=== PATIENT | female | born 1940 | race Caucasian/White ===

== ENCOUNTER 2022-06-20 09:42 | Day surgery (SDC) | payer MEDICARE, SELFPAY ==
[2022-06-20 09:54] VITALS: BMI 19.4
[2022-06-20] MEDS: KETOROLAC OPHTH 0.5% 1 DROP EYE-RIGHT ×2 (10:10→10:15)
[2022-06-20] MEDS: TETRACAINE 0.5% OPHTH 1 DROP EYE-RIGHT ×2 (10:10→10:15)
[2022-06-20 10:17] VITALS: BP 173/83; PULSE 64; RESP 20; TEMP 36.2; O2SAT 99
--- NOTE | 2022-06-20 10:30 | SUR.PREOP ---
The eye drops brought by the patient (Ketorolac and Prednisolone) are examined and I have determined they are labeled by the patient's pharmacy for this patient as prescribed by the surgeon. The bottles are intact, recently obtained and appear to be correct.
[2022-06-20] MEDS: BALANCED SALT IRRIG SOLN 15 ML EYE-RIGHT (10:43)
[2022-06-20] MEDS: TETRACAINE 0.5% OPHTH 2 DROP EYE-RIGHT (11:28)
--- NOTE | 2022-06-20 12:03 | W.ANESCHARGE ---
Anesthesia Charges Start Date/Time Anesthesia Start Date: 06/20/22 Anesthesia Start Time: 11:24 Stop Date/Time Anesthesia Stop Date: 06/20/22 Anesthesia Stop Time: 12:03 Summary Emergency: No Extremes of Age: Over 70-CPT 87327
--- NOTE | 2022-06-20 12:10 | P.PCN_ITS ---
Procedure Note Will [facility] bill your pro fee for this procedure?: Yes Procedure Description: SURGEON: Keri Uriostegui MD PREOPERATIVE DIAGNOSIS: Nuclear sclerotic cataract, right eye. POSTOPERATIVE DIAGNOSIS: Nuclear sclerotic cataract, right eye. NAME OF OPERATION: Phacoemulsification of cataract with posterior chamber intraocular lens implantation in the right eye. ANESTHESIA: Topical. ESTIMATED BLOOD LOSS: Less than 2 cc. COMPLICATIONS: None. PATHOLOGY SPECIMEN: None. INDICATIONS: See consult note for details. The risks, benefits and alternatives of the procedure were explained to the patient, who elected to proceed and signed informed consent to do so. PROCEDURE: The patient was brought to the pre-holding area where the right eye was identified as the operative eye. I placed my initials above this eye. The patient received eye drops consisting of 0.5% tetracaine, 1% tropicamide, 10% phenylephrine, and 0.5% ketorolac. The patient was given 12.5 grams IV mannitol and a honan balloon was placed for 8 minutes preoperatively. The patient was then brought to the operating room where the right eye was again identified as the operative eye. The eye was prepped with Betadine and draped in the usual sterile ophthalmic fashion. A #15 super-sharp blade was used to create a paracentesis site. 1% non-preserved intracameral lidocaine was injected into the anterior chamber. Endocoat was injected into the anterior chamber. A 2.4 mm keratome was used to create a thre e-plane self-sealing incision 1 mm anterior to the temporal limbus. A cystotome was used to create an anterior capsular leaflet. The Utrata forceps were used to extend this to form a continuous curvilinear capsulorrhexis. Hydrodissection was performed. The cataract was removed with phacoemulsification using the rxyrlx-dyd-lcobklj technique. The irrigation and aspiration tip was used to remove the remaining cortex. Healon was injected into the capsular bag. An EVELYN ZCB00 intraocular lens of 23.0 diopters was injected into the capsular bag. The irrigation and aspiration tip was used to remove the remaining viscoelastic. Balanced salt solution on a cannula was used to hydrate the wound, and the wound was found to be watertight. The pupil was noted to be round. DISPOSITION: The patient was taken to the recovery room and discharged to home in stable condition. The patient was instructed to call me or go to the emergency department with any sudden change, including dramatic loss of vision, severe pain in the eye or eyebrow region, nausea, or vomiting. The patient will follow up in the clinic tomorrow morning. Surgeon: Keri Uriostegui MD
[2022-06-20 12:14] VITALS: BP 176/88; PULSE 70; RESP 16; TEMP 37.2; O2SAT 98
--- NOTE | 2022-06-20 12:27 | W.ANESCHARGE ---
Anesthesia Charges Start Date/Time Anesthesia Start Date: 06/20/22 Anesthesia Start Time: 11:24 Stop Date/Time Anesthesia Stop Date: 06/20/22 Anesthesia Stop Time: 12:03 Summary Emergency: No Extremes of Age: Over 70-CPT 25844
== END 2022-06-20 12:35 | disposition home or self-care (01) ==
PROVIDERS: PCP Physician Assistant Medical; Visit Provider Ophthalmology
PROC: (CPT 66984; principal; 2022-06-20 09:45)
DX: H25.11 Age-related nuclear cataract, right eye (principal)
CPT/HCPCS: 66984; 00142; 99100; A9270; J2150; J2250; J3010; V2632

== ENCOUNTER 2022-07-04 08:04 | Day surgery (SDC) | payer MEDICARE, SELFPAY ==
[2022-07-04] MEDS: TETRACAINE 0.5% OPHTH 1 DROP EYE-LEFT ×2 (08:22→08:30)
[2022-07-04] MEDS: KETOROLAC OPHTH 0.5% 1 DROP EYE-LEFT ×2 (08:26→08:36)
[2022-07-04 08:27] VITALS: BMI 19.7
[2022-07-04 08:31] VITALS: BP 139/70; PULSE 61; RESP 16; TEMP 36.8; O2SAT 98
[2022-07-04] MEDS: TETRACAINE 0.5% OPHTH 2 DROP EYE-LEFT (09:40)
[2022-07-04] MEDS: BALANCED SALT IRRIG SOLN 15 ML EYE-LEFT (09:43)
--- NOTE | 2022-07-04 10:05 | W.ANESCHARGE ---
Anesthesia Charges Start Date/Time Anesthesia Start Date: 07/04/22 Anesthesia Start Time: 09:32 Stop Date/Time Anesthesia Stop Date: 07/04/22 Anesthesia Stop Time: 10:07 Summary Emergency: No Extremes of Age: Over 70-CPT 69515
[2022-07-04 10:07] VITALS: BP 157/83; PULSE 56; RESP 14; TEMP 36.5; O2SAT 97
--- NOTE | 2022-07-04 10:16 | W.ANESCHARGE ---
Anesthesia Charges Start Date/Time Anesthesia Start Date: 07/04/22 Anesthesia Start Time: 09:32 Stop Date/Time Anesthesia Stop Date: 07/04/22 Anesthesia Stop Time: 10:07 Summary Emergency: No Extremes of Age: Over 70-CPT 94539
--- NOTE | 2022-07-04 10:39 | SUR.PHASEII ---
PT DISCHARGED IN STABLE CONDITION
--- NOTE | 2022-07-04 13:00 | PM.PROC ---
Procedure Note Date Seen: 07/04/22 Will [facility] bill your pro fee for this procedure?: Yes Procedure Description: SURGEON: Keri Uriostegui MD PREOPERATIVE DIAGNOSIS: Nuclear sclerotic cataract, left eye. POSTOPERATIVE DIAGNOSIS: Nuclear sclerotic cataract, left eye. NAME OF OPERATION: Phacoemulsification of cataract with posterior chamber intraocular lens implantation in the left eye. ANESTHESIA: Topical. ESTIMATED BLOOD LOSS: Less than 2 cc. COMPLICATIONS: None. PATHOLOGY SPECIMEN: None. INDICATIONS: See consult note for details. The risks, benefits and alternatives of the procedure were explained to the patient, who elected to proceed and signed informed consent to do so. PROCEDURE: The patient was brought to the pre-holding area where the left eye was identified as the operative eye. I placed my initials above this eye. The patient received eye drops consisting of 0.5% tetracaine, 1% tropicamide, 10% phenylephrine, and 0.5% ketorolac. The patient was given 12.5 grams IV mannitol and a Honan balloon was placed for 8 minutes pre-operatively. The patient was then brought to the operating room where the left eye was again identified as the operative eye. The eye was prepped with Betadine and draped in the usual sterile ophthalmic fashion. A #15 super-sharp blade was used to create a paracentesis site. 1% non-preserved intracameral lidocaine was injected into the anterior chamber. Endocoat was injected into the anterior chamber. A 2.4 mm keratome was used to create a three-plane self-sealing incision 1 mm anterior to the temporal limbus. A cystotome was used to create an anterior capsular leaflet. The Utrata forceps were used to extend this to form a continuous curvilinear capsulorrhexis. Hydrodissection was performed. The cataract was removed with phacoemulsification using the iikydq-fci-mjgsdwd technique. The irrigation and aspiration tip was used to remove the remaining cortex. Healon was injected into the capsular bag. An EVELYN ZCB00 intraocular lens of 23.0 diopters was injected into the capsular bag. The irrigation and aspiration tip was used to remove the remaining viscoelastic. Balanced salt solution on a cannula was used to hydrate the wound, and the wound was found to be watertight. The pupil was noted to be round. DISPOSITION: The patient was taken to the recovery room and discharged to home in stable condition. The patient was instructed to call me or go to the emergency department with any sudden change, including dramatic loss of vision, severe pain in the eye or eyebrow region, nausea, or vomiting. The patient will follow up in the clinic tomorrow morning. Surgeon: Keri Uriostegui MD
== END 2022-07-04 10:42 | disposition home or self-care (01) ==
PROVIDERS: PCP Physician Assistant Medical; Visit Provider Ophthalmology
PROC: (CPT 66984; principal; 2022-07-04 08:15)
DX: H25.12 Age-related nuclear cataract, left eye (principal)
CPT/HCPCS: 66984; 00142; 99100; A9270; J2150; J2250; J3010; V2632

== ENCOUNTER 2022-10-01 13:50 | Outpatient (RCR) | payer MEDICARE, SELFPAY | END 2023-06-20 23:59 | disposition home or self-care (01) | PROVIDERS: PCP Physician Assistant Medical; Visit Provider Psychiatry & Neurology Neurology | DX: G20 Parkinson's disease (principal); G31.84 Mild cognitive impairment of uncertain or unknown etiology; Z51.89 Encounter for other specified aftercare | CPT/HCPCS: 97165; 97535 ==

== ENCOUNTER 2023-05-10 15:20 | Outpatient (CLI) | payer MEDICARE, SELFPAY ==
[2023-05-10 21:45] LABS: Chloride* 102 mmol/L (96-114)
[2023-05-10 21:46] LABS: Albumin* 4.1 g/dL (3.3-5.0); Sodium* 137 mmol/L (135-149)
[2023-05-10 21:47] LABS: Potassium* 3.9 mmol/L (3.6-5.1)
[2023-05-10 21:49] LABS: Alanine Aminotransferase* 16 U/L (4-35); Alkaline Phosphatase* 56 U/L (40-150); Aspartate Amino Transferase* 38 U/L (12-35); Bilirubin Total* 0.9 mg/dL (0.1-1.5); Blood Urea Nitrogen* 21 mg/dL (7-30); Carbon Dioxide* 28 mmol/L (20-32); Creatinine* 0.6 mg/dL (0.5-1.5); Estimated Glomerular Filt Rate 90 ml/min; Glucose* 108 mg/dL (60-115); Total Protein* 6.5 g/dL (6.0-8.3)
[2023-05-10 21:50] LABS: Calcium* 9.3 mg/dL (8.4-10.6)
== END 2023-05-10 15:21 | disposition home or self-care (01) ==
PROVIDERS: PCP Physician Assistant Medical; Visit Provider Physician Assistant Medical
DX: F41.8 Other specified anxiety disorders (principal); I10 Essential (primary) hypertension
CPT/HCPCS: 80053; 84443

== ENCOUNTER 2023-06-06 11:58 | Outpatient (CLI) | payer MEDICARE, SELFPAY ==
--- OUTSIDE RECORDS SUMMARY | 2023-06-06 12:07 | XMS_ITS | Continuity of Care Document ---
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 [address] [place] [address], [id number], [place]. tel:[phone] Referring Provider: Mee Mcgarry, [address] [facility] [place], [address] . tel:[phone] [facility], [address] [place] [address], [id number], [place] tel:[phone] [place] [address] No Information 3 [facility]. [address] [place] [address], [id number], [place]. tel:[phone] Referring Provider: eMe Mcgarry [address] [facility] [place], [address] . tel:[phone] Family History Family Member Type Diagnosis Age At Onset No Information Payers Payer name Insurance type Covered libertarian ID Kyler coyle(s) [facility] Medicare Replacement 16 [id number] Social History Type Description Quantity Date Captured Comments Sex Female Smoking Status No Information Chief Complaint And Reason For Visit No Information Reason For Referral Reason For Referral No Information Plan Of Treatment Date Type Action Status No Information History Of Present Illness Encounter Date Complaint History Of Prese nt Illness No Information Functional Status Date Functional Assessmen t No Information Instructions Date Instruction Additional Infor mation No Information Assessments Type Assessment Date No Information Patient Care Teams Name Effective Dates (start - stop) Status Members No Information
--- OUTSIDE RECORDS SUMMARY | 2023-06-06 12:08 | XMS_ITS | Continuity of Care Document ---
Author Name Unknown Organization [facility] Address [address] [place] [address] Phone Care Team Providers Care Beater Room Helper Name Role Phone Mercedez POLLACK, PhD, Yousif Unavailable Unavai lable Allergies, Adverse Reactions, Alerts Substance Reaction Status Criticality morphine Active No Information Medications Medication Instructions Dosage Effective Dates (start - stop) Status Comments BUPROPION HCL (unknown strength) Not Available - Active OXYBUTYNIN CHLORIDE (unknown strength) Not Available - Active CARBIDOPA-LEVODOPA (unknown strength) Not Available - Active DONEPEZIL HCL (unknown strength) Not Available - Active ESCITALOPRAM OXALATE (unknown strength) Not Available - Active IBUPROFEN (unknown strength) Not Available - Active LOSARTAN POTASSIUM (unknown strength) Not Available - Active TRAMADOL HCL (unknown strength) Not Available - Active Procedures Procedure Date Office/Outpatient Visit,New, [facility] Advance Directives Directive Yes / No Effective Date File Name No Information Encounters Encounter Description Practice Location Reason(s) For Visit Diagnoses Date Provider Providers Copied on Encounter [facility], [address], [place], [id number], [place] tel:[phone] No Information Mercedez Dodd. [facility], [address], [place], [address], [place]. tel:[phone] Office/Outpat ient Visit, [facility], [address], [place], [id number], [place] tel:[phone] [facility] Spinal stenosis, lumbar region with neurogenic claudication 0 2 Mercedez Dodd. [facility], [address], [place], [address], [place]. [phone] Referring Provider: Azam Laguerre [facility] [address] [place], [address]. tel:[phone] Family History Family Member Type Diagnosis Age At Onset No Information Payers Payer name Insurance type Covered constitution party ID Kyler coyle(s) [facility] [id number] Medicare [facility] BL [id number] 1 Social History Type Description Quantity Date Captured [...]
--- OUTSIDE RECORDS SUMMARY | 2023-06-06 12:08 | XMS_ITS | Continuity of Care Document ---
Author Name Unknown Organization [facility] Address [address] [place] [address] Phone Care Team Providers Care Digital Project Coordinator Name Role Phone Mee Mcgarry MD Unavailable Unavailable Allergies, Adverse Reactions, Alerts Substance Reaction Status Criticality morphine vomiting Active No Information Medications Medication Instructions Dosage Effective Dates (start - stop) Status Comments diclofenac 1 % topical gel apply (2G) by topical route 3 times every day to the affected area(s) as needed for OA 2 G - Active please dispense a roll on if available gabapentin 100 mg capsule Take 1 cap [...] route every day 15 MG - Active Procedures Procedure Date Facet Jt In Or [...] Diagnoses Date Provider Providers Copied on Encounter [facility], [address] [place], [place], [id number] , [place] tel:[phone] [facility] Other spondylosis, lumbar region 3 Malgorzata Caban. [address] [place], [place], [id number] , [place]. tel:[phone] Referring Provider: Halima Vigli [facility] [address] [facility], [address], [place], [address]. tel:[phone] OFFICE/OUTPA TIENT VISIT, EST [facility], [address] [place] [address], [id number] , [place] tel:[phone] [facility] bilateral shoulder pain (chief complaint) Chronic pain syndromePain in left shoulderOther intervertebral disc degeneration, lumbar regionIschial bursitisOther steam gigger (current) drug therapyOther spondylosis, lumbar region [address], [place], [place], [id number] , [place]. tel:[phone] Referring Provider: Halima [facility]il [facility] [address], [address], [place], [address]. tel:[phone] [facility], [address] [place] [address], [id number] , [place] tel:[phone] [facility] No Information [address], [place], [place], [id number] , [place]. tel:[phone] [facility], [address] [place] [address], [id number] , [place] tel:[phone] [facility] in left shoulder Apr-2 3 Malgorzata Caban. [address] [facility] [place], [id number] , [place]. tel:[phone] Referring Provider: Halima Vigil [address], [address], [place], [address]. tel:[phone] OFFICE/OUTPA TIENT VISIT, [facility], [address] [place] [address] [place], [id number] , [place] tel:[phone] [facility] bilateral shoulder pain (chief complaint) ParkinsonismChro yasmine pain syndromeOther intervertebral disc degeneration, lumbar regionIschial bursitisPain in left shoulderOther nursing home (current) drug therapy Apr- [address], [place], [id number] , [place]. tel:[phone] Referring Provider: Halima Vigil [address], [address], [place], [address]. tel:[phone] OFFICE/OUTPA TIENT VISIT, [facility], [address] [place] [address], [id number] , [place] tel:[phone] [facility] Low back pain (chief complaint) Chronic pain syndromeParkinso nismOther intervertebral disc degeneration, lumbar regionIschial bursitis Apr-[address], [place], [id number] , [place]. tel:[phone] Referring Provider: Halima Vigil [address], [address], [place], [address]. tel:[phone] OFFICE/OUTPA TIENT VISIT, [facility], [address] [place] [address] [place], [id number] , [place] tel:[phone] [facility] low back pain (chief complaint) Chronic pain syndromeEncounte r for screening for other disorderParkinso nismOther intervertebral disc degeneration, lumbar regionIschial bursitis Jan-[address], [place], [place], [id number] , [place]. tel:[phone] Referring Provider: Halima Vigil [facility] [address] [facility], [address], [place], [address]. tel:[phone] Family History Family Member Type Diagnosis Age At Onset No Information Payers Payer name Insurance type Covered green party ID Authorraymona jonna(s) Blue [employer] Medicare Replacement 16 [id number] Social History Type Description Quantity Date Captured [...] pain (L>R). She is accompanied by her [id number]-ga-kmu today who also contributes to her discussion [...] first in-person follow-up in two years with [facility] regarding BL shoulder (L > R) and [...] She had a follow-up with orthopedics at [facility] last week and she reports they could [...] (aspercreme), rest and stretching. Low back pain Duration: chroni c. The [...] No other concerns today low back pain (comments) Alysa wilkinson s [...] stenosis. She recalls a hip X-ray in [place] about 1.5 years ago, results normal. Reports some relief for a few weeks from SI joint injection at [facility] in 12/2020, but the pain quickly [...]
== END 2023-06-06 11:59 | disposition home or self-care (01) ==
PROVIDERS: PCP Physician Assistant Medical; Visit Provider Family Medicine
DX: Z01.818 Encounter for other preprocedural examination (principal); G20 Parkinson's disease; I10 Essential (primary) hypertension; N32.81 Overactive bladder; R53.83 Other fatigue
CPT/HCPCS: 80053; 82043; 82570; 82607; 84443; 87086; 87186

== ENCOUNTER 2023-08-28 10:53 | Outpatient (CLI) | payer MEDICARE, SELFPAY ==
[2023-08-28] MEDS: TETRACAINE 0.5% OPHTH 1 DROP EYE-BOTH ×3 (11:12→11:40)
[2023-08-28] MEDS: BRIMONIDINE TARTRATE 0.2% OPHTH 1 DROP EYE-BOTH ×2 (11:13→11:52)
[2023-08-28 11:17] VITALS: BP 161/90; PULSE 75; RESP 16; O2SAT 99
--- NOTE | 2023-08-28 12:03 | P.OPTPRC_ITS ---
Procedure Note Date of procedure: 08/28/23 Will [facility] bill your pro fee for this procedure?: Yes Procedure Description: SURGEON: Keri Uriostegui MD PREOPERATIVE DIAGNOSIS: Posterior capsular opacity, right and left eye POSTOPERATIVE DIAGNOSIS: Posterior capsular opacity, right and left eye PROCEDURE: YAG laser capsulotomy, both eyes ANESTHESIA: Topical. ESTIMATED BLOOD LOSS: None PATHOLOGY SPECIMEN: None COMPLICATIONS: None INDICATIONS: See consult note for details. The risks, benefits and alternatives of the procedure were explained to the patient, who elected to proceed and signed informed consent to do so. PROCEDURE: The patient was brought to the pre-holding area where the right and left eyes were identified as the operative eyes. I placed my initials above the eyes. The following was given in both eyes: The patient received 2 sets of 1 drop of 0.5% tetracaine and 1 drop of 1% tropicamide. They also received 1 drop of 0.2% brimonidine. They received 1 drop of 0.5% tetracaine immediately prior to bringing them back for the procedure. The patient was then brought to the procedure room where the right and left eyes were again identified as the operative eyes. A YAG Carroll capsulotomy lens was placed on the right eye. The laser was administered using a total number of 16 shots with an energy of 2.4 mJ per shot for a total energy of 38 mJ. The patient tolerated the procedure well. A YAG Carroll capsulotomy lens was placed on the left eye. The laser was administered using a total number of 11 shots with an energy of 2.4 mJ per shot for a total energy of 26 mJ. The patient tolerated the procedure well. DISPOSITION: The patient was taken back to the pre-holding area and given 1 drop of 0.2% brimonidine in both eyes. They were discharged to home in stable condition. The patient was instructed to call me or go to the emergency department with any sudden change, including dramatic loss of vision, severe pain in the eye or eyebrow region, nausea, or vomiting. The patient was instructed to use the 0.2% brimonidine 1 drop 2 times a day in both eyes for 1 week. The patient will follow up in the clinic in 1-2 weeks.
== END 2023-08-28 11:54 | disposition home or self-care (01) ==
LOC: EYE PRC 10:56
PROVIDERS: PCP Physician Assistant Medical; Visit Provider Ophthalmology
DX: H26.9 Unspecified cataract (principal)
CPT/HCPCS: 66821; A9270

== ENCOUNTER 2023-11-06 10:50 | Outpatient (CLI) | payer MEDICARE, SELFPAY | END 2023-11-06 10:51 | disposition home or self-care (01) | LOC: NFLDREF 11-07 09:13 | PROVIDERS: PCP Physician Assistant Medical; Referring Provider Physician Assistant Medical; Visit Provider Physician Assistant Medical | DX: R30.0 Dysuria (principal) | CPT/HCPCS: 87086; 87186 ==

== ENCOUNTER 2023-11-14 10:15 | Outpatient (RCR) | payer MEDICARE, SELFPAY | END 2024-03-13 23:59 | disposition home or self-care (01) | PROVIDERS: PCP Physician Assistant Medical; Visit Provider Psychiatry & Neurology Neurology | DX: G20.A1 Parkinson's disease without dyskinesia, without mention of fluctuations (principal); R41.3 Other amnesia; R13.10 Dysphagia, unspecified; R49.0 Dysphonia; Z51.89 Encounter for other specified aftercare | CPT/HCPCS: 92524; 92610 ==

== ENCOUNTER 2023-11-22 12:39 | Outpatient (CLI) | payer MEDICARE, SELFPAY | END 2023-11-22 12:40 | disposition home or self-care (01) | LOC: NFLDREF 11-24 23:42 | PROVIDERS: PCP Physician Assistant Medical; Referring Provider Physician Assistant Medical; Visit Provider Family Medicine | DX: R35.1 Nocturia (principal); N39.0 Urinary tract infection, site not specified; R39.9 Unspecified symptoms and signs involving the genitourinary system; I95.9 Hypotension, unspecified; N32.81 Overactive bladder; I10 Essential (primary) hypertension | CPT/HCPCS: 87086; 87186 ==

== ENCOUNTER 2023-12-13 13:25 | Outpatient (CLI) | payer MEDICARE, SELFPAY | END 2023-12-13 13:26 | disposition home or self-care (01) | LOC: NFLDREF 12-19 16:06 | PROVIDERS: PCP Physician Assistant Medical; Referring Provider Physician Assistant Medical; Visit Provider Family Medicine | DX: M48.061 Spinal stenosis, lumbar region without neurogenic claudication (principal); F41.8 Other specified anxiety disorders; N39.0 Urinary tract infection, site not specified; N32.81 Overactive bladder; I10 Essential (primary) hypertension | CPT/HCPCS: 87086; 87186 ==

== ENCOUNTER 2023-12-25 13:09 | Outpatient (CLI) | payer MEDICARE, SELFPAY | END 2023-12-25 13:10 | disposition home or self-care (01) | LOC: FRMREF 13:10 | PROVIDERS: PCP Physician Assistant Medical; Visit Provider Obstetrics & Gynecology | DX: N39.41 Urge incontinence (principal); N39.0 Urinary tract infection, site not specified | CPT/HCPCS: 87086 ==

== ENCOUNTER 2024-04-22 10:52 | Outpatient (CLI) | payer MEDICARE, SELFPAY | END 2024-04-22 10:53 | disposition home or self-care (01) | LOC: NFLDREF 05-12 10:03 | PROVIDERS: PCP Physician Assistant Medical; Referring Provider Physician Assistant Medical; Visit Provider Physician Assistant Medical | DX: R19.7 Diarrhea, unspecified (principal) | CPT/HCPCS: 87493 ==

== ENCOUNTER 2024-06-24 09:09 | Outpatient (CLI) | payer MEDICARE, SELFPAY | END 2024-06-24 09:10 | disposition home or self-care (01) | LOC: NFLDREF 06-25 11:20 | PROVIDERS: PCP Family Medicine; Referring Provider Family Medicine; Visit Provider Physician Assistant Medical | DX: N39.0 Urinary tract infection, site not specified (principal) | CPT/HCPCS: 87086 ==

== ENCOUNTER 2024-08-21 19:12 | Emergency (ER) | payer MEDICARE, SELFPAY ==
[2024-08-21 19:20] VITALS: BP 157/93; PULSE 84; RESP 16; TEMP 36.6; O2SAT 96; BMI 20.7
--- NOTE | 2024-08-21 19:29 | ED_ITS ---
HPI - Fall General Time Seen by Provider: 19:29 Date Seen: 08/21/24 Chief Complaint: Fall/Minor Trauma Stated Complaint: Fall Time Seen by Provider: 08/21/24 19:29 Source: patient, EMS, RN notes reviewed and old records reviewed Mode of arrival: EMS Limitations: no limitations History of Present Illness HPI Narrative: Alysa is a very pleasant 84-year-old female currently on carbidopa levodopa for Parkinson's disease, history of UTI, history of hypertension and chronic back pain who comes to the emergency room accompanied by her son after she fell sustaining facial and hand trauma. Alysa states that she was out for her normal walk and she went to walk to a bench but her legs did not moved. They note that unfortunately her Parkinson's does act this way. She denied any chest pain shortness of breath or any other prodromal symptoms. She fell striking her face on cement. She did not lose consciousness. It is noted that she had swelling particularly around her left eye and over the bridge of her nose. She also has abrasions of her left hand. In regards to her hand she does not note that there is any significant new eye discomfort except on the skin. She is able to move her hand. She does appear to have a chronic contracture. Patient notes chronic back pain but it is not any worse than normal. She denies knee pain. She denies neck pain or numbness or tingling of the extremities. Patient takes carbidopa levodopa 4 times daily. She is not currently on any blood thinners. Patient did have a tooth removed earlier today at the dentist. Related Data Home Medications ?Medication ?Instructions ?Recorded ?Confirmed carbidopa ER 25 mg-levodopa 100 mg 1 tab PO QPM 05/10/23 07/30/24 tablet,extended release carbidopa 25 mg-levodopa 100 mg 3 tab PO QID 11/06/23 07/30/24 tablet donepezil 5 mg tablet 5 mg PO QDAY 03/24/24 07/30/24 gabapentin 100 mg capsule 100 mg PO QDAY PRN 03/24/24 07/30/24 Previous Rx's ?Medication ?Instructions ?Recorded VITAFUSION WOMEN Capsule 1 gum PO DAILY #30 caps 04/16/24 acetaminophen 500 mg tablet 1,000 mg (2 x 500 mg) PO Q6H PRN 04/16/24 fever or pain #60 tabs calcium carbonate (Calcium Antacid) 200 mg PO DAILY #30 tabs 04/16/24 fluoxetine 40 mg capsule 40 mg PO DAILY for anxiety #90 caps 04/16/24 ibuprofen 200 mg tablet 600 mg (3 x 200 mg) PO Q6H PRN 04/16/24 pain #60 tabs lidocaine HCl 4 % topical liquid 1 ea topical BID PRN pain #73 mL 04/16/24 roll-on (Aspercreme (lidocaine HCl)) loperamide 2 mg capsule 4 mg (2 x 2 mg) PO BID #30 caps 04/16/24 losartan 100 mg tablet 100 mg PO DAILY #90 tabs 04/16/24 hydrocodone 5 mg-acetaminophen 325 1 tab PO QHS PRN pain #10 tabs 07/30/24 mg tablet Allergies Allergy/AdvReac Type Severity Reaction Status Date / Time morphine Allergy Unknown Violently Verified 07/30/24 14:53 Vomits Review of Systems Status of ROS: Reports: 10 or more systems reviewed and unremarkable except as noted in History and below Const: Denies: fever, chills or fatigue Eyes: Denies: change in vision or blurry vision ENMT: Denies: throat pain, neck pain or nasal congestion Cardio: Denies: chest pain, edema, swelling of feet/ankles or shortness of breath with exertion Resp: Denies: shortness of breath or cough GI: Denies: abdominal pain, nausea or vomiting : Denies: painful urination, urinary frequency or urinary urgency Musculo: Denies: neck pain Integ/Breast: Reports: skin tenderness and skin swelling Neuro: Reports: lack of coordination (Occasionally); Denies: headache or numbness in extremities Endo: Denies: fatigue PFSH PFS Medical History Osteoporosis ?M81.0 - Age-related osteoporosis without current pathological fracture (ICD- 10) Buttock pain ?M79.18 - Myalgia, other site (ICD-10) Compression fracture of L2 ?S32.020A - Wedge compression fracture of second lumbar vertebra, initial encounter for closed fracture (ICD-10) UTI (urinary tract infection) ?N39.0 - Urinary tract infection, site not specified (ICD-10) Urge incontinence ?N39.41 - Urge incontinence (ICD-10) History of fracture of vertebra ?Z87.81 - Personal history of (healed) traumatic fracture (ICD-10) POLST (Physician Orders for Life-Sustaining Treatment) ?Z78.9 - Other specified health status (ICD-10) History of malignant neoplasm of breast ?Z85.3 - Personal history of malignant neoplasm of breast (ICD-10) Surgical History H/O cataract extraction ?Z98.49 - Cataract extraction status, unspecified eye (ICD-10) History of appendectomy ?Z90.49 - Acquired absence of other specified parts of digestive tract (ICD- 10) Status post total replacement of right shoulder (~2016) ?Z96.611 - Presence of right artificial shoulder joint (ICD-10) Status post total replacement of left shoulder (~2005) ?Z96.612 - Presence of left artificial shoulder joint (ICD-10) History of total bilateral knee replacement ?Z96.653 - Presence of artificial knee joint, bilateral (ICD-10) History of lumpectomy ?Z98.890 - Other specified postprocedural states (ICD-10) History of hysterectomy ?Z90.710 - Acquired absence of both cervix and uterus (ICD-10) History of colonoscopy ?Z98.890 - Other specified postprocedural states (ICD-10) Family History Mother Colon cancer Father Prostate cancer Other Breast cancer Cancer Social History Narrative: Does not use illicit drugs Nonsmoker Occasional alcohol consumption 2022 Smoking Status: Never smoker Do you use any of these nicotine containing products: None How often do you have a drink containing alcohol: monthly or less Alcohol type: wine How often do you have six or more drinks on one occasion: Daily or almost daily AUDIT-C Alcohol total score: 5 Non-prescribed substance use: denies use Caffeine: No Little interest or pleasure in doing things: more than half the days Feeling down, depressed, or hopeless: several days Are you using contraception or practicing any form of control: No Exam Narrative: Exam Narrative: Alysa is alert and oriented. No acute distress at this time. She unfortunately has a superficial laceration with bleeding on the bridge of her nose, swelling in this area as well and periorbital swelling on the left eye especially inferiorly. She has abrasion over her cheek as well and just beneath her nose. No evidence of a septal hematoma at this time. Dentition is otherwise intact. Mandible does not appear to be mobile. Lower jaw without discomfort. Heart with regular rate and rhythm and lungs are clear bilaterally. Abdomen soft. Pelvis stable. Lower extremities without discomfort with palpation. Moving lower extremities. Nose midline cervical tenderness. Patient does have this cervical collar removed in any discomfort she was feeling has now dissipated. Range of motion rotation flexion extension all within normal limits and no pain with active motion. I will clear her cervical spine at this time. Const: Vital Signs, click to edit/add: Vital Signs - 24 hr 08/21/24 19:20 08/21/24 21:00 08/21/24 21:19 Temperature 97.9 F Pulse Rate [Pulse Oximeter] 84 76 74 Respiratory Rate 16 16 16 Blood Pressure [Ri ght Upper Arm] 157/93 H 141/89 H Pulse Oximetry 96 96 Oxygen Delivery Me thod Room Air Room Air Documenting provider has reviewed patient's vital signs: yes Course Course ED Course: Patient had fall today. In regards to the fall she is describing that her knees were weaker not moving. She has no prodromal symptoms to indicate true syncope angina arrhythmia or hypotension. This does sound like a freezing episode associated with Parkinson's. No further testing with the exception of a urinalysis as she does have a history of UTI is being done in regards to the fall. However, in regards to the consequences of the fall I do suggest CT of the head, face, neck. Because she has no complaints regarding the injury to the left hand will not x-ray her hand. Will also check her tetanus status. Reevaluation(s) Reevaluation #1: Patient noted to have reassuring CTs. Incidental finding of a tiny meningioma noted on her head CT. I did discuss this with patient and her son. Tetanus updated as last tetanus was 2011. Reevaluation #2: Bacitracin is applied in thin layer to her wounds. Vital Signs Vital signs: Initial Vital Signs Temperature 97.9 F 08/21/24 19:20 Temperature Source Temporal Artery Scan 08/21/24 19:20 Pulse Rate 84 08/21/24 19:20 Respiratory Rate 16 08/21/24 19:20 Blood Pressure 157/93 H 08/21/24 19:20 Blood Pressure Mean 114 H 08/21/24 19:20 Blood Pressure Position Sitting 08/21/24 19:20 Pulse Oximetry 96 08/21/24 19:20 Oxygen Delivery Method Room Air 08/21/24 19:20 Vital Signs Temperature 97.9 F 08/21/24 19:20 Pulse Rate 84 08/21/24 19:20 Respiratory Rate 16 08/21/24 19:20 Blood Pressure 157/93 H 08/21/24 19:20 Pulse Oximetry 96 08/21/24 19:20 Oxygen Delivery Method Room Air 08/21/24 19:20 Temperature 97.9 F 08/21/24 19:20 Pulse Rate 74 08/21/24 21:19 Respiratory Rate 16 08/21/24 21:19 Blood Pressure 141/89 H 08/21/24 21:19 Pulse Oximetry 96 08/21/24 21:00 Oxygen Delivery Method Room Air 08/21/24 21:00 Medications Administered Medications: Discontinued Medications Generic Name Dose Route Start Last Admin Trade Name Freq PRN Reason Stop Dose Admin Bacitracin 1 applic 08/21/24 20:54 08/21/24 21:10 Bacitracin Ointment Bulk Tube TOPICAL 08/21/24 20:55 1 applic ONCE ONE Administration Diphtheria/Tetanus/Acell Pertussis 0.5 ml 08/21/24 20:54 08/21/24 21:10 Tetanus/Diphth/Pertussis 0.5 Ml Syringe IM 08/21/24 20:55 0.5 ml .ONCE ONE Administration MDM - Fall MDM Narrative Medical decision making narrative: 1. Fall-this appears to be a parkinsonian related event. Patient had no chest pain shortness of breath and she has been stable here in the emergency room. Do recommend using a walking stick or other stabilizing assist device to prevent falls. 2. Facial trauma-no evidence of fractures, septal hematoma. Recommend application of bacitracin twice daily to the wounds while healing. Seek medical attention for any evolving infection or worsening symptoms. 3. Soft tissue injury hand-bacitracin to these wounds as well. Return for worsening symptoms or discomfort. 4. History of UTI-no obvious sign of UTI but urine will be sent for culture. 5. Tetanus updated 6. Disposition-home at this time. Return for worsening symptoms and as needed. Medical Records Attestation: I reviewed the patient's medical records. Lab Data Attestation: I reviewed the patient's lab results. Labs: Lab Results 08/21/24 Range/Units 20:10 Urine Color Yellow (Yellow) Urine Appearance Clear (Clear) Urine pH 6.0 (5.0-8.5) Ur Specific [place] 1.020 (1.000-1.030) Urine Protein Negative (Negative) Urine Glucose (UA) Negative (Negative) Urine Ketones 1+ A (Negative) Urine Blood Negative (Negative) Urine Nitrite Negative (Negative) Urine Bilirubin Negative (Negative) Urine Urobilinogen 0.2 (0.2-1.0) Ur Leukocyte Esterase 1+ A (Negative) Urine RBC 2-5 A (0-2) Urine WBC 2-5 (0-5) Ur Squamous Epith Cells Few (None-Few) Urine Bacteria Few A (None) Imaging Data CT scan - head: Attestation: I have reviewed the pertinent imaging results. Facial CT: Attestation: I have reviewed the pertinent imaging results. Cervical spine CT: Attestation: I have reviewed the pertinent imaging results. My impression: I do not note any acute fractures Radiologist's impression: [place] [id number] Diagnostic Imaging Report Patient: Alysa Fuentes MR#: [id number] : 1940 Acct:[id number] Loc: ED Service Date: 08/21/[address]: Ordering Physician: Abigail Malik M.D. Date of Service: 08/21/24 Procedure(s): CT cervical spine [facility] Accession Number(s): [id number] cc: Abigail Malik M.D.; Abigail Sandoval M.D.~ For Patients: As a result of the Cures Act, medical imaging exams and procedure reports are released immediately into your electronic medical record. You may view this report before your referring provider. If you have questions, please contact your health care provider. INDICATION: Fall. TECHNIQUE: CT of the cervical spine without contrast. Coronal and sagittal reformats are included. COMPARISON: None. FINDINGS: A T1 superior endplate fracture with mild vertebral body height loss and superimposed Schmorl`s node deformity. Age indeterminate but more likely chronic. Mild degenerative kyphosis. Trace anterolisthesis C3-4 and C4-5. Multilevel disc degeneration most advanced at the C4-5, C5-6 and C6-7 levels. Multilevel uncovertebral/facet arthrosis, with no CT visualized high-grade neural foraminal stenosis. No high grade spinal canal stenosis as far as visualized. A partially calcified left thyroid nodule. Mild emphysematous changes and scarring within the upper lungs. IMPRESSION: 1. A T1 superior endplate fracture with mild height loss and superimposed Schmorl`s node deformity. Age-indeterminate but more likely chronic. 2. Multilevel cervical spondylosis. Discharge Plan Discharge Clinical Impression: Fall, Facial trauma, Soft tissue injury Patient Disposition: Home, Self-Care Condition: Improved Additional Instructions: No fractures noted on the CT of your face, head, neck. The scrapes and superficial cuts on your face should be covered with bacitracin- a very thin layer twice a day why healing to prevent scarring. Monitor for infection and seek medical attention if you have fever, increased swelling and as needed. Your tetanus was updated today. Suggest walking with supportive walking stick or cane. Return or seek medical attention for worsening symptoms, onset of new symptoms and as needed. Prescriptions: No Action carbidopa-levodopa 25-100 mg tablet extended release 1 tab PO QPM hydrocodone-acetaminophen 5-325 mg tablet 1 tab PO QHS PRN (Reason: pain) Qty: 10 0RF carbidopa-levodopa 25-100 mg tablet 3 tab PO QID donepezil 5 mg tablet 5 mg PO QDAY gabapentin 100 mg capsule 100 mg PO QDAY PRN losartan 100 mg tablet 100 mg PO DAILY Qty: 90 1RF fluoxetine 40 mg capsule 40 mg PO DAILY Qty: 90 3RF acetaminophen 500 mg tablet 1,000 mg PO Q6H PRN (Reason: fever or pain) Qty: 60 11RF ibuprofen 200 mg tablet 600 mg PO Q6H PRN (Reason: pain) Qty: 60 11RF loperamide 2 mg capsule 4 mg PO BID Qty: 30 11RF lidocaine HCl [Aspercreme (lidocaine HCl)] 4 % liquid roll-on 1 ea topical BID PRN (Reason: pain) Qty: 73 11RF [facility]IT[facility]USION WOMEN Capsule 1 gum PO DAILY Qty: 30 11RF calcium carbonate [Calcium Antacid] 200 mg calcium (500 mg) tablet,chewable 200 mg PO DAILY Qty: 30 11RF Follow Up/Referrals: Abigail Sandoval MD [Primary Care Provider] - Stand Alone Forms: [email or web address] Info Instructions
--- NOTE | 2024-08-21 19:42 | CRLHL7_ITS ---
For Patients: As a result of the Century Cures Act, medical imaging exams and procedure reports are released immediately into your electronic medical record. You may view this report before your referring provider. If you have questions, please contact your health care provider. INDICATION: Fall. Facial trauma. TECHNIQUE: CT of the face without contrast. Coronal reconstructions are included. COMPARISON: None. FINDINGS: No acute fracture of the maxillofacial bones. Mild left preseptal/periorbital soft tissue swelling. The orbital contents are normal in appearance. There is no evidence for penetrating injury to the ocular globes. Bilateral pseudophakia. No radiodense or metallic foreign body is demonstrated. The sinonasal cavities are clear. Mild leftward nasal septal deviation. The visualized portions of the brain are normal in appearance. IMPRESSION: 1. No acute fracture of the maxillofacial bones. 2. Mild left periorbital soft tissue swelling. No injury to the left ocular globe. Please note that all CT scans at this facility use dose modulation, iterative reconstruction, and/or weight-based dosing when appropriate to reduce radiation dose to as low as reasonably achievable. Dictated by Brijesh Dominique MD @ 08/21/2024 8:38:08 PM (Electronically Signed)
--- NOTE | 2024-08-21 19:42 | CRLHL7_ITS ---
For Patients: As a result of the Century Cures Act, medical imaging exams and procedure reports are released immediately into your electronic medical record. You may view this report before your referring provider. If you have questions, please contact your health care provider. INDICATION: Fall. TECHNIQUE: CT of the head without contrast. Coronal and sagittal reformats are included. COMPARISON: None. FINDINGS: No acute intracranial hemorrhage. No mass effect or midline shift. No hydrocephalus or extra-axial collections. Patchy hypoattenuation throughout the supratentorial white matter, typical for chronic microvascular ischemic change. A tiny hyperdense nodule abutting the left tentorial leaflet, possibly a meningioma. No acute osseous abnormalities. Mastoid air cells and paranasal sinuses are clear. Normal soft tissues. IMPRESSION: IMPRESSION: 1. No acute intracranial abnormalities. 2. A tiny hyperdense nodule abutting the left tentorial leaflet, possibly a meningioma. Please note that all CT scans at this facility use dose modulation, iterative reconstruction, and/or weight-based dosing when appropriate to reduce radiation dose to as low as reasonably achievable. Dictated by Brijesh Dominique MD @ 08/21/2024 8:49:44 PM (Electronically Signed)
--- NOTE | 2024-08-21 19:42 | CRLHL7_ITS ---
For Patients: As a result of the Century Cures Act, medical imaging exams and procedure reports are released immediately into your electronic medical record. You may view this report before your referring provider. If you have questions, please contact your health care provider. INDICATION: Fall. TECHNIQUE: CT of the cervical spine without contrast. Coronal and sagittal reformats are included. COMPARISON: None. FINDINGS: A T1 superior endplate fracture with mild vertebral body height loss and superimposed Schmorl`s node deformity. Age indeterminate but more likely chronic. Mild degenerative kyphosis. Trace anterolisthesis C3-4 and C4-5. Multilevel disc degeneration most advanced at the C4-5, C5-6 and C6-7 levels. Multilevel uncovertebral/facet arthrosis, with no CT visualized high-grade neural foraminal stenosis. No high grade spinal canal stenosis as far as visualized. A partially calcified left thyroid nodule. Mild emphysematous changes and scarring within the upper lungs. IMPRESSION: 1. A T1 superior endplate fracture with mild height loss and superimposed Schmorl`s node deformity. Age-indeterminate but more likely chronic. 2. Multilevel cervical spondylosis. Please note that all CT scans at this facility use dose modulation, iterative reconstruction, and/or weight-based dosing when appropriate to reduce radiation dose to as low as reasonably achievable. Dictated by Brijesh Dominique MD @ 08/21/2024 8:47:13 PM (Electronically Signed)
[2024-08-21 20:15] LABS: Appearance Urine Clear (Clear); Bilirubin Urine Negative (Negative); Blood Urine Negative (Negative); Color Urine Yellow (Yellow); Glucose Urine Negative (Negative); Ketones Urine 1+ (Negative); Leukocyte Esterase Urine 1+ (Negative); Nitrite Urine Negative (Negative); Protein Urine Negative (Negative); Urobilinogen Urine 0.2 (0.2-1.0)
[2024-08-21 20:32] LABS: Bacteria Urine Few; Squamous Epithelial Cell Urine Few (None-Few)
[2024-08-21 21:00] VITALS: PULSE 76; RESP 16; O2SAT 96
[2024-08-21] MEDS: TETANUS/DIPHTH/PERTUSSIS 0.5 ML SYRINGE IM (21:10)
[2024-08-21] MEDS: BACITRACIN OINTMENT BULK TUBE 1 APPLIC TOPICAL (21:10)
[2024-08-21 21:19] VITALS: BP 141/89; PULSE 74; RESP 16
== END 2024-08-21 21:20 | disposition home or self-care (01) ==
PROVIDERS: Emergency Provider Family Medicine; PCP Family Medicine
DX: S09.93XA Unspecified injury of face, initial encounter (principal); S60.222A Contusion of left hand, initial encounter; W18.30XA Fall on same level, unspecified, initial encounter; Z87.440 Personal history of urinary (tract) infections
CPT/HCPCS: 70450; 70486; 72125; 81001; 87086; 90471; 90715; 99284; 99285

== ENCOUNTER 2024-12-05 11:55 | Outpatient (CLI) | payer MEDICARE, SELFPAY | END 2024-12-05 11:56 | disposition home or self-care (01) | LOC: NFLDREF 16:45 | PROVIDERS: PCP Family Medicine; Referring Provider Family Medicine; Visit Provider Nurse Practitioner Family | DX: N30.90 Cystitis, unspecified without hematuria (principal) | CPT/HCPCS: 87086; 87186 ==

== ENCOUNTER 2025-02-01 11:09 | Emergency (ER) | payer MEDICARE, SELFPAY ==
[2025-02-01 11:12] VITALS: BP 129/81; PULSE 77; RESP 16; TEMP 36.2; O2SAT 97; BMI 19.9
--- NOTE | 2025-02-01 11:45 | ED.GENADULT ---
HPI - General Adult General Date Seen: 02/01/25 Chief complaint: Fall/Minor Trauma Stated complaint: Fall, head laceration, neck and shoulder pain Time Seen by Provider: 02/01/25 11:44 History of Present Illness HPI narrative: 84-year-old female with a history recurrent UTIs, Parkinson's disease, anxiety/depression, restless leg syndrome, osteoporosis. She is not on any anticoagulants or anti-platelet medication She presents to the ER today for evaluation of injuries after ground level fall. She fell at her assisted living in [facility] this morning. She was walking with a walker and tripped on the wheel walker. She fell and hit her head against a doorjamb. She suffered a a linear laceration in the midline of the frontal scalp, just inside the hairline on the vertex of her head. She has some bleeding from her scalp that was controlled by direct pressure.. No loss of consciousness. She also has pain in her neck, and left shoulders, but says that that is now resolved. No numbness or weakness in her arms. She also has some chronic low back pain and spinal stenosis and feels that her back pain flared up after she fell but that is also doing better now. She does not think her back is broken. No new numbness or weakness down her legs . She normally takes Tylenol for pain. She cannot tolerate opiate pain killers very well. Sometimes on her back pain flares up she takes an anxiety medicine in that helps it. In review her med list she is on gabapentin which may be the medicine she takes for her back Related Data Home Medications ?Medication ?Instructions ?Recorded ?Confirmed carbidopa ER 25 mg-levodopa 100 mg 1 tab PO QPM 05/10/23 02/01/25 tablet,extended release carbidopa 25 mg-levodopa 100 mg 3 tab PO QID 11/06/23 02/01/25 tablet donepezil 5 mg tablet 5 mg PO QDAY 03/24/24 02/01/25 gabapentin 100 mg capsule 100 mg PO QDAY PRN 03/24/24 02/01/25 calcium carbonate (Tame The Flame) 195 mg PO DAILY 08/24/24 12/05/24 loperamide 2 mg capsule 4 mg PO BID PRN 08/24/24 02/01/25 Previous Rx's ?Medication ?Instructions ?Recorded VITAFUSION WOMEN Capsule 1 gum PO DAILY #30 caps 04/16/24 acetaminophen 500 mg tablet 1,000 mg (2 x 500 mg) PO Q6H PRN 04/16/24 fever or pain #60 tabs fluoxetine 40 mg capsule 40 mg PO DAILY for anxiety #90 caps 04/16/24 ibuprofen 200 mg tablet 600 mg (3 x 200 mg) PO Q6H PRN 04/16/24 pain #60 tabs lidocaine HCl 4 % topical liquid 1 ea topical BID PRN pain #73 mL 04/16/24 roll-on (Aspercreme (lidocaine HCl)) losartan 100 mg tablet 100 mg PO DAILY #90 tabs 12/11/24 Allergies Allergy/AdvReac Type Severity Reaction Status Date / Time morphine Allergy Unknown Violently Verified 02/01/25 11:28 Vomits PFSH PFS Medical History Osteoporosis ?M81.0 - Age-related osteoporosis without current pathological fracture (ICD-10) Buttock pain ?M79.18 - Myalgia, other site (ICD-10) Compression fracture of L2 ?S32.020A - Wedge compression fracture of second lumbar vertebra, initial encounter for closed fracture (ICD-10) UTI (urinary tract infection) ?N39.0 - Urinary tract infection, site not specified (ICD-10) Urge incontinence ?N39.41 - Urge incontinence (ICD-10) History of fracture of vertebra ?Z87.81 - Personal history of (healed) traumatic fracture (ICD-10) POLST (Physician Orders for Life-Sustaining Treatment) ?Z78.9 - Other specified health status (ICD-10) History of malignant neoplasm of breast ?Z85.3 - Personal history of malignant neoplasm of breast (ICD-10) Surgical History H/O cataract extraction ?Z98.49 - Cataract extraction status, unspecified eye (ICD-10) History of appendectomy ?Z90.49 - Acquired absence of other specified parts of digestive tract (ICD-10) Status post total replacement of right shoulder (~2016) ?Z96.611 - Presence of right artificial shoulder joint (ICD-10) Status post total replacement of left shoulder (~2005) ?Z96.612 - Presence of left artificial shoulder joint (ICD-10) History of total bilateral knee replacement ?Z96.653 - Presence of artificial knee joint, bilateral (ICD-10) History of lumpectomy ?Z98.890 - Other specified postprocedural states (ICD-10) History of hysterectomy ?Z90.710 - Acquired absence of both cervix and uterus (ICD-10) History of colonoscopy ?Z98.890 - Other specified postprocedural states (ICD-10) Family History Mother Colon cancer Father Prostate cancer Other Breast cancer Cancer Social History Narrative: Does not use illicit drugs Nonsmoker Occasional alcohol consumption 2022 Smoking Status: Never smoker Do you use any of these nicotine containing products: None How often do you have a drink containing alcohol: monthly or less Alcohol type: wine How often do you have six or more drinks on one occasion: Daily or almost daily AUDIT-C Alcohol total score: 5 Non-prescribed substance use: denies use Caffeine: No Are you using contraception or practicing any form of control: No Exam Narrative: Exam Narrative: Constitutional: Appears well-developed and well-nourished. Alert. Conversant. Non toxic. HENT: Head: There is a 3 cm linear laceration in the vertex/frontal scalp roughly in the midline. No depressed skull fracture, Raccoon Eyes, French's sign, or hemotympanum. Face normal. TMs normal. Nose: Nose normal. Mouth/Throat: Oral mucosa is clear and moist. no trismus. Pharynx normal. Tonsils symmetric. No tonsillar enlargement, erythema, or exudate. Eyes: Conjunctivae normal. EOM normal. Pupils equal, round, and reactive to light. No scleral icterus. Neck: Normal range of motion. Neck supple. No tracheal deviation present. No posterior midline tenderness or step-off. Cardiovascular: Normal rate, regular rhythm. No gallop. No friction rub. No murmur heard. Symmetric radial artery pulses Pulmonary/Chest: Effort normal. No stridor. No respiratory distress. No wheezes. No rales. No rhonchi . No tenderness. Abdominal: Soft. Bowel sounds normal. No distension. No mass. No tenderness. No rebound. No guarding. Musculoskeletal: RUE: Normal range of motion. No tenderness. No deformity LUE: Normal range of motion. No tenderness. No deformity Bilaterally clavicles, shoulders, glenohumeral joints, humeri, elbows, forearms, wrists, hands are nontender. She does have limited range of motion of her left shoulder with flexion only to about 90? but that is apparently chronic and has been present for years due to previous rotator cuff operation No lumbar spine tenderness or step-off. Pelvis stable RLE: Normal range of motion. No edema. No tenderness. No deformity LLE: Normal range of motion. No edema. No tenderness. No deformity Neurological: Alert and oriented to person, place, and time. Normal strength. CN II-VII intact. No sensory deficit. GCS eye subscore is 4. GCS verbal subscore is 5. GCS motor subscore is 6. Normal coordination Skin: Skin is warm and dry. No rash noted. No pallor. Normal capillary refill. Psychiatric: Normal mood. Normal affect. Const: Vital Signs, click to edit/add: Vital Signs - 24 hr 02/01/25 11:12 Temperature 97.2 F L Pulse Rate [Pulse Oximeter] 77 Respiratory Rate 16 Blood Pressure [Ri ght Upper Arm] 129/81 Pulse Oximetry 97 Oxygen Delivery Me thod Room Air Course Vital Signs Vital signs: Initial Vital Signs Temperature 97.2 F L 02/01/25 11:12 Temperature Source Temporal Artery Scan 02/01/25 11:12 Pulse Rate 77 02/01/25 11:12 Respiratory Rate 16 02/01/25 11:12 Blood Pressure 129/81 02/01/25 11:12 Blood Pressure Mean 97 02/01/25 11:12 Blood Pressure Position Sitting 02/01/25 11:12 Pulse Oximetry 97 02/01/25 11:12 Oxygen Delivery Method Room Air 02/01/25 11:12 Vital Signs Temperature 97.2 F L 02/01/25 11:12 Pulse Rate 77 02/01/25 11:12 Respiratory Rate 16 02/01/25 11:12 Blood Pressure 129/81 02/01/25 11:12 Pulse Oximetry 97 02/01/25 11:12 Oxygen Delivery Method Room Air 02/01/25 11:12 Temperature 97.2 F L 02/01/25 11:12 Pulse Rate 77 02/01/25 11:12 Respiratory Rate 16 02/01/25 11:12 Blood Pressure 129/81 02/01/25 11:12 Pulse Oximetry 97 02/01/25 11:12 Oxygen Delivery Method Room Air 02/01/25 11:12 Medical Decision Making MDM Narrative Medical decision making narrative: Very pleasant 84-year-old female presenting to the ER today with a packed field ground level fall. She apparently struck the top of her head against a doorjamb when she fell. Findings and exam are consistent with an uncomplicated scalp laceration which was repaired as noted above. There is no evidence at this time to suggest any associated fracture or foreign body. Head CT is normal. There is no evidence to suggest intracranial injury and patient is neurologically in tact. C-spine CT is normal. She also does have some chronic back pain. She does not want x-rays of her low back today as she does not think it is broken. She feels comfortable managing her back pain with Tylenol. We discussed other meds for managing her back pain such as opiate pain killers and muscle relaxers but patient would prefer to hold off on those due to risk of side effects. She does report that sometimes when her back pain flares up she takes 1 of her anxiety medications (possibly gabapentin? ) and it was helpful. Patient will use Tylenol or gabapentin if needed for back pain. Discussed options for repairing her scalp laceration including sutures, barbara, glue. We agree the glue may be the best option because then she does not have to come back to the doctor for follow-up staple removal. Indications to seek urgent reevaluation and signs of infection (including but not limited to increasing pain, redness, swelling, fevers, and drainage) were reviewed. Tetanus is up-to-date. This is a clean and noncontaminated wound in which prophylactic antibiotics are not indicated. An understanding of the discharge instructions and need for follow up were verbally confirmed. Imaging Data CT scan - head: Attestation: I have reviewed the pertinent imaging results. Radiologist's impression: IMPRESSION: No CT evidence of an acute intracranial process. CT C spine: Attestation: I have reviewed the pertinent imaging results. Radiologist's impression: IMPRESSION: No acute fracture or trauma-related malalignment. Discharge Plan Discharge Clinical Impression: Laceration of scalp, Head injury, Acute neck pain Patient Disposition: Home, Self-Care Condition: Stable Instructions: Head Injury (ED), Skin Adhesive Care (ED) Additional Instructions: As we discussed, your CT scan of your head looks good. No signs of internal injuries or bleeding. The to care for the laceration on your scalp, try to keep the glue and hair around the laceration clean and dry for 5 days. It is okay to get that area wet when you do a bath or shower beginning on Saturday. Watch laceration for signs of infection. If you notice redness, swelling, pus draining from the wound or if you develop a fever, please see your doctor or come back to the ER right away Prescriptions: No Action carbidopa-levodopa 25-100 mg tablet extended release 1 tab PO QPM loperamide 2 mg capsule 4 mg PO BID PRN Tame The Flame 195 mg calcium (500 mg) tablet,chewable 195 mg PO DAILY losartan 100 mg tablet 100 mg PO DAILY Qty: 90 3RF carbidopa-levodopa 25-100 mg tablet 3 tab PO QID donepezil 5 mg tablet 5 mg PO QDAY gabapentin 100 mg capsule 100 mg PO QDAY PRN fluoxetine 40 mg capsule 40 mg PO DAILY Qty: 90 3RF acetaminophen 500 mg tablet 1,000 mg PO Q6H PRN (Reason: fever or pain) Qty: 60 11RF ibuprofen 200 mg tablet 600 mg PO Q6H PRN (Reason: pain) Qty: 60 11RF lidocaine HCl [Aspercreme (lidocaine HCl)] 4 % liquid roll-on 1 ea topical BID PRN (Reason: pain) Qty: 73 11RF VITAFUSION WOMEN Capsule 1 gum PO DAILY Qty: 30 11RF Follow Up/Referrals: Provider,Not a Local [Primary Care Provider] - Stand Alone Forms: [facility] Info Instructions Procedures Laceration Scalp laceration-frontal scalp: Pre procedure diagnosis: Frontal scalp laceration Verification/time out: correct patient and correct site Site: scalp Size (cm): 3 Description: linear Pre-repair: wound explored and deep structures intact Skin layer closed with: other (Dermabond using hair apposition technique)
--- OUTSIDE RECORDS SUMMARY | 2025-02-01 13:11 | XMS_ITS | Clinical Summary ---
[facility] Address [address] [place] [address] Care Team Providers Care Fermenter Wine Name Role Phone Found, No Pcp MD Primary Care Provider Unavailab le Source Comments You are receiving this document as you are listed as the primary care provider,follow-up provider, or the patient has been referred to you for consultation.This is in compliance with the Medicare andSt. [facility] Hospital[facility] EHR Incentive Program,which states Providers who transition their patient to another setting of careor provider of care or refers their patient to another provider of care shouldprovide summary care record for each transition of care or referral. [facility] Allergies Active Allergy Reactions Criticality Noted Date Comments Morphine Nausea And Vomiting 09/26/2011 Medications diphenhydrAMIN E (BENADRYL) 25 MG tablet Take 1 capsule by mouth 2 times daily as needed. 6 Active ibuprofen (MOTRIN) 200 MG tablet Take 1-2 Tabs by mouth every 4 hours as needed for Pain. 100 Tab 8 Active losartan (COZAAR) 100 MG tablet TAKE 1 TABLET BY MOUTH DAILY 90 Tablet 9 Active cyanocobalamin 2000 MCG tablet Take 0.5 Tablets (1,000 mcg) by mouth daily. Active Multiple Vitamin (MULTIVITAMIN) tablet Take 1 Tablet by mouth daily. Active ketoconazole (NIZORAL) 2 % creamIndicatio ns:Seborrheic dermatitis Apply topically to scaly areas of face 2 times a day 60 g 11 4 Active Additional Information Patient not taking.Reported on 12/29/2024 FLUoxetine (PROZAC) 40 MG capsule Take 1 Capsule (40 mg) by mouth daily. 4 Active loperamide (IMODIUM) 2 MG capsule Take by mouth as needed. 4 Active acetaminophen 500 MG tablet Take 1-2 Tablets (500-1,000 mg) by mouth every 4 hours as needed for Pain. Maximum acetaminophen dose is 4000 mg in 24 hours Active gabapentin (NEURONTIN) 100 MG capsule Take 1 Capsule (100 mg) by mouth daily as needed (anxiety). 30 Capsule 11 4 Active Additional Information Patient not taking.Reported on 12/29/2024 lidocaine (LMX) 4 % cream Apply topically two times a day. Active calcium carbonate (TUMS) 500 MG chewable tablet Chew and swallow 1 Tablet (500 mg) by mouth daily. Active carbidopa-levo dopa (SINEMETCR) 25-100 MG controlled release tablet Take 1 Tablet by mouth daily at bedtime. 8p 90 Tablet 3 5 Active carbidopa-levo dopa (SINEMET) 25-100 MG tablet Take 3 Tablets by mouth 4 times a day. 7:30a-11a-2:30p-6 :30p 1080 Tablet 3 5 Active donepezil (ARICEPT) 5 MG tablet Take 1 Tablet (5 mg) by mouth daily at bedtime. 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 Nontoxic single thyroid nodule 02/12/2017 Overview (02/12/2017): CT noted, 01/2017, [place]. US ordered in [place] Solitary pulmonary nodule 02/12/2017 Overview (02/12/2017): Seen on CT ,. Non-smoker. Follow up advised in 6-9 mos. 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 Lumpectomy, radiation Positive PPD 09/02/2012 Overview (07/04/2016): Childhood, no prior treatment. Wants to delay medication start until 03/2013. Hypertension, essential 09/26/2011 Nontoxic uninodular goiter 03/21/2007 Overview (07/24/2017): left 08/2006. Biopsy benign, Dr. Contreras. US in office 1.8 x 1.4 x 1.4 cm per note of 03/20/07 ; Nodule Thyroid Female stress incontinence 07/06/2004 Overview (07/24/2017): Incontinence Urinary Stress Female Allergic rhinitis 07/06/2004 Overview (07/24/2017): Rhinitis Allergic Resolved Problems Problem Noted Date Diagnosed Date Resolved Date Encounter for screening mamm ogram for high-risk patient 04/07/2014 09/19/2015 Overview (07/24/2017): Screening mammogram for high-risk patient Encounters Date Type Department Care Team Description 12/30/2024 Notes/Orders [place] [address] [facility] [address] [place] [address] Found, Blanca Alvarenga MD 12/29/2024 1:30 PM TELECOMMUNICATIONS ENGINEER Office Visit [address] [id number] Elena Horan MD Parkinson's disease with dyskinesia and fluctuating manifestations (HRC) (Primary Dx); MCI (mild cognitive impairment); Spinal stenosis of lumbar region, unspecified whether neurogenic claudication present from Last 3 Months Immunizations Immunization Administration Dates Next Due DTP 11/11/1987, 6,12/16/1985,1984 Flu Vac Preserv Free (3+yrs) 08/16/2012,08/16/20 09 H1n1 Miv Sanofi 3+ Yr (Injected) 08/16/2010 HepA Adult (19+ yrs) 07/12/2015 HepB Adult (Engerix-B, 20+ y rs, 3 dose series) 05/26/2018 Influenza IIV3 (Trivalent) F luzone Highdose, 65+ Yrs (76596) 08/22/2016 Influenza IIV4 (Quadrivalent ) 0.5mL (24063) 08/31/2013 Influenza, Unspecified Formulation 09/01,09/17/1996,10/22/1994,1992 MMR 12/17/1986 OPV, Trivalent (Orimune or tOPV) 11/11/1987,12/02,10/19/1985 PCV13 (Prevnar) 09/02/2014 PPSV23 (Pneumovax) 09/01/2011,07/09/2005 TDAP (BOOSTRIX) 08/25/2012 Td 07/19/2003,06/08/1993 Zoster (Zostavax) 07/17/2012 Family History Medical History Relation Name Comments Cancer, Prostate Father Cancer Mother Cancer, Colon Mother Diabetes Mother Thyroid Disorder Mother Cancer Brother Cancer, Lung Brother ?lung ca Cancer, Breast Other niece Arthritis Sister Ebony Vision Loss Son 4 Dennis retinal issue, unclear. Cardiovascular Disease Negative Family History Heart Disease Negative Family History High Blood Pressure Negative Family History Relation Name Status Comments Father (Age 72) cancer Mother (Age 59) colon canc er Brother (Age 61) metastatic cancer Other niece Alive Sister Ebony Alive b 1932 Son 1 Luke Alive b 1964 Son 2 Pedro Alive b 1966 Son 3 Brent Alive b 1967 Son 4 Dennis Alive b 1970 Social History Tobacco Use Types Packs/Day Years Used Date Smoking Tobacco: Never Smokeless Tobacco: Never Alcohol Use Standard Drinks/Week Comments Yes 0 (1 standard drink = 0.6 oz pur e alcohol) PHQ-2 Answer Date Recorded PHQ-2 Score 0 03/27/2019 Comments No Sex and Gender Information Value Date Recorded Sex Assigned at Not on file Legal Sex Female 4:21 AM CDT Gender Identity Not on file Sexual Orientation Not on file Last Filed Vital Signs Vital Sign Reading Time Taken Comments Blood Pressure 81/57 12/29/2024 1:48 PM TELECOMMUNICATIONS ENGINEER Pulse 81 12/29/2024 1:48 PM TELECOMMUNICATIONS ENGINEER Temperature 36.6 C (97.8 F) 06/03/2017 8:49 AM CDT Respiratory Rate 17 06/16/2018 9:29 AM CDT Oxygen Saturation 97% 05/05/2017 7:00 AM CDT Inhaled Oxygen Concentration - - Weight 62 kg (136 lb 9.6 oz) 05/19/2024 10:08 AM CDT Height 172.7 cm (5' 8) 05/26/2018 8:47 AM CDT Body Mass Index 20.77 05/26/2018 8:47 AM CDT Plan of Treatment Upcoming Encounters Date Type Department Care Team (Late st Contact Info) Description 08/19/2025 2:00 PM CDT Appointment [facility] [address] [facility] [place], [place] [phone] Elena Horan MD [address] [place], [place] [phone] Health Maintenance Due Date Last Done Comments Zoster/Shingles (2 of 3) 09/11/2012 07/17/2012 RSV (1 - 1-dose 75+ series) 2015 HepA (2 of 2 - Risk 2-dose series) 01/12/2016 07/12/2015 Dexa 04/13/2018 04/13/2016, 09/01 (Completed) HepB (2) 06/23/2018 05/26/2018 Medicare Annual Wellness Visit 05/26/2019 05/26/2018 COVID-19 Vaccine ( season) 2025 09/11/2024, 09/24/2023, 11/14/2022, Additional history exists DTaP/Tdap/Td (9 - Tdap) 08/21/2034 08/21/20, 08/25/2012, 08/25/2012 (Completed), Additional history exists IPV (Polio) Aged Out 11/11/1987, 12/02, 10/19/1985 No longer eligible based on patient's age to complete this topic Colonoscopy Discontinued 05/06/2014, 04/2014 (Completed), 07/03/2003, Additional history exists Pneumococcal 50+ Yrs Completed 09/02/2014, 09/01/2011, 09/01/2011 (Completed), Additional history exists Influenza Completed 09/11/2024, 07/2023, 09/18/2022, Additional history exists Hib Aged Out No longer eligi ble based on patient's age to complete this topic MCV4 Aged Out No longer eligi ble based on patient's age to complete this topic Meningococcal B Aged Out No longer el igible based on patient's age to complete this topic Procedures Procedure Name Priority Date/Time Associated Diagnosis Comments DXA BONE DENSITY STUDY Routine 04/13/2016 11:55 AM CDT Postmenopausal COLONOSCOPY S 05/06/2014 12:00 AM CDT from Last 3 Months or Most Recently Relevant to Health Maintenance Results * DXA BONE DENSITY STUDY (04/13/2016 11:55 AM CDT) Anatomical Region Laterality Modality Other Narrative 04/13/2016 11:55 AM CDT Kuldeep Gonzalez MD 04/13/2016 11:55 AM CLINIC DXA REPORT Patient Name: Alysa Fuentes Busby: Kuldeep Gonzalez MD Densitometer: [employer] Discovery SL (S/N [id number]) [place]. OSTEOPOROSIS RISK FACTORS FROM PATIENT QUESTIONNAIRE: The patient is a 75 y.o.female. Hysterectomy age 32. Used HRt x 20 years, stopper x 15 years. Vertebral fracture age 60. Breast CA. BONE MINERAL DENSITY: Lumbar Spine Vertebrae Included: L1, L3, L4 Bone Mineral Density (gm/cm2): 1.013 T-Score: -0.4 Z-Score: 2.1 Total Hip Bone Mineral Density (gm/cm2): 0.718 T-Score: -1.8 Z-Score: 0 Femoral Neck Bone Mineral Density (gm/cm2): 0.779 T-Score: -0.6 Z-Score: 1.5 Osteoarthritis changes in the lumbar spine may artificially increase the measured BMD. Comparison studies run on different densitometers affects precision. Otherwise, scan quality is technically adequate for interpretation. 10 Year Fracture Risk Major (%): 8.9 Hip (%): 1.2 Fracture risk is based on bone density, age, ethnicity, and other BMD-independent risk factors noted from the questionnaire and the FRAX score, if available. See different fracture risk categories below under definitions. VFA (Vertebral Fracture Assessment) (T6-L5): Vertebral compression deformity at L2 consistent with fracture noted. ASSESSMENT: 1: Mild low BMD, based on the lowest T score but diagnosis is osteoporosis, based on prior compression fracture. 2: Compared to the prior study of 09/19/09, there has been no significant change. 3: Fracture risk assessment: Elevated future fracture risk. RECOMMENDATIONS: 1: Recommend adequate calcium and vitamin D intake 2: Screen for secondary causes of bone loss, if not already done. 3. Consider treatment with an osteoporosis medication. 4. Consider repeat bone density in 2 years. Definitions (T-Score = Standard deviations above/below mean peak adult) (Z-Score = Standard deviations above/below mean age/sex-matched peers) ISCD Standards: For a more accurate fracture risk assessment, reference data is used for all ethnic groups and the 1/3 region is reported for the forearm. WHO DEFINITIONS: Normal BMD: T-score ? -1.0 Osteopenia: T-score between -1.0 and -2.5 Osteoporosis: T-score ? -2.5 FRAX Score : The FRAX algorithms give the 10-year probability of fracture. The output is a 10-year probability of hip fracture and the 10-year probability of a major osteoporotic fracture (clinical spine, forearm, hip or shoulder fracture). The FRAX score takes into account the bone density, but also age, gender, weight, height, previous fracture, parental hip fracture, smoking status, glucocorticoid intake, history of RA, secondary osteoporosis, and high alcohol intake in determining fracture risk in patients with osteopenia and osteoporosis. FRAX and Fracture Risk Categories in terms of major osteoporotic fracture risk (clinical spine, forearm, hip, or shoulder): < 10% = low fracture risk ? 10% and <15% = mildly increased fracture risk ? 15% and <20% = moderately increased fracture risk ? 20% and <30% = high fracture risk ? 30% = very high fracture risk A clinician may consider FDA-approved medical therapies in postmenopausal women and men aged 50 years and older, if one or more of the following is present (clinical correlation required and therapy may not always be indicated): 1. The patient has a hip or vertebral (clinical or morphometric) fracture. 2. T-score ? -2.5 at the femoral neck, hip, or spine after appropriate evaluation to exclude secondary causes. 3. Low bone mass (T-score between -1.0 and -2.5 at the femoral neck, hip or spine) and a 10-year probability of a hip fracture ? 3% or a 10-year probability of a major osteoporosis-related fracture ? 20% based on the FRAX scores. 4. Clinicians judgment and/or patient preferences may result in a decision to patients with 10-year fracture probabilities above or below these levels. us Kuldeep Gonzalez MD RADIOLOGY/AR Final Resul t * COLONOSCOPY S (05/06/2014 12:00 AM CDT) 05/06/2014 us DUMMY/OTHER/AR Final Result from Last 3 Months or Most Recently Relevant to Health Maintenance Insurance [phone] [place] [id number] [phone] [place] [id number] [facility] MEDICARE ADVANTAGE Advance Directives Documents on File Type Date Recorded Patient Fire Management Officer Expl anation Advance Directive/Living Will/Durable Power of Attny on file/POLST PN 05/03/2017 10:26 AM * Full Code (Latest Code Status on File) Date Activated Date Inactivated Comments 05/03/2017 1:23 PM 05/05/2017 2:00 PM Care Teams Fermenter Wine Relationship Specialty Start Date End Date Found, No Pcp, [address] [place] [address] PCP - General 12/30/24
--- OUTSIDE RECORDS SUMMARY | 2025-02-01 13:11 | XMS_ITS | Encounter Summary ---
Author Organization [facility] Address [address] [place] [address] Care Team Providers Care Inspector Water Pollution Control Name Role Phone Found, No Pcp Primary Care Provider Unavailab le Encounter Details Date Type Department Care Team (Late Contact Info) Description 12/30/2024 Notes/Orders [facility] [address] [facility] [address] [facility] [place], [place] [phone] Found, No Pcp, [address] [place] [address] Social History Tobacco Use Types Packs/Day Years [...] on file Sexual Orientation Not on file documented as of this encounter Plan of Treatment Upcoming Encounters Date Type Department Care Team (Late Contact Info) Description 08/19/2025 2:00 PM CDT Appointment [facility] [address] [place], [place] [address] Elena Horan MD [address] [place], [place] [phone] documented as of this encounter Visit Diagnoses Not on filedocumented in this encounter Care Teams Inspector Water Pollution Control Relationship Specialty Start Date End Date Found, No Pcp, [address] [place] [address] PCP - General 12/30/24 documented as of this encounter
--- OUTSIDE RECORDS SUMMARY | 2025-02-01 13:11 | XMS_ITS | CCD ---
Author Name Tj Mayo Address [address] [facility] [address] [place] [address] Phone Organization [facility] Phone Care Team Providers Care Clinical Secretary Name Role Phone Judith Mayo Primary Care Provider Un available Unavailable Chronic Care Management Unavaila ble Summary Purpose DataExchange Insurance Providers Payer name Policy type / Coverage type Covered republican ID Effective Begin Date Effective End Date [place] of [place] H[place] Medicare Risk [id number] Unknown Un known Family history Runs in the family Diagnosis Age At Onset No Known Diseases N/A Social History Social History Element Codes Description Effec tive Dates Marital status Unknown Single 12/21/2024 Living arrangements Unknown Assisted Living 12/[address]: 713977165 Never smoker 12/[address]: 477970151 No Alcohol Consum ption 12/21/2024 Children Unknown [...] Active ACP (advance care planning) SNOMED CT: 735741628 ICD-10: Z71.89 ICD-9: V65.49 12/22/2024 Active Allergic rhinitis due to other allergen SNOMED CT: 45344784 ICD-10: J30.89 ICD-9: 477.8 12/22/[address]: 59585911 ICD-10: F41.9 ICD-9: 300.00 12/22/2024 Active Essential tremor SNOMED CT: 763768951 ICD-10: G25.0 ICD-9: 333.1 12/22/2024 Active Female stress incontinence SNOMED CT: 60 760907 ICD-10: N39.3 ICD-9: 625.6 12/22/2024 Active History of ductal carcinoma in situ of breast SNOMED CT: 80195002003268 ICD-10: Z86.000 ICD-9: V13.89 12/22/2024 Active MCI (mild cognitive impairment) SNOMED CT: 536467580 ICD-10: G31.84 ICD-9: 331.83 12/22/2024 Active Primary osteoarthritis, right shoulder SNOMED CT: 397139363023676 ICD-10: M19.011 ICD-9: 715.11 12/22/2024 Active Medications Medication Codes Instructions Start Date Stop Date Status Fill Instructions fluoxetine 40 mg capsule RxNorm: 894776 Take 1 Capsule(s) Oral QD 5 No Stop Date Active gabapentin 100 mg capsule RxNorm: 855631 Take 1 Capsule(s) Oral QD as needed 5 No Stop Date Active loperamide 2 mg capsule RxNorm: 456799 Take 2 Capsule(s) Oral take 2 caps po at onset of diarrhea, and may take 1 cap po fpr each loose stool thereafter. PRN max of 4 caps/24 hours PRN 5 No Stop Date Active ibuprofen 200 mg tablet RxNorm: 835308 Take 3 Tablet(s) Oral every 6 hours as needed 5 No Stop Date Active Aspercreme (lidocaine HCl) 4 % topical liquid roll-on RxNorm: 6317035 liquid roll-on Topical apply topically to lower back BID and may apply BID PRN 5 No Stop Date Active acetaminophen 500 mg tablet RxNorm: 013876 Take 2 Tablet(s) Oral every 6 hours as needed 5 No Stop Date Active Vitamin B-12 1,000 mcg tablet RxNorm: 855919 Take 1 Tablet(s) Oral QD 5 No Stop Date Active losartan 100 mg tablet RxNorm: 786498 Take 1 Tablet(s) Oral QD 5 No Stop Date Active carbidopa 25 mg-levodopa 100 mg tablet RxNorm: 864931 Take 3 Tablet(s) Oral QID 5 No Stop Date Active carbidopa ER 25 mg-levodopa 100 mg tablet,extended release RxNorm: 825658 Take 1 Tablet(s) Oral QHS every night at bedtime 5 No Stop Date Active donepezil 5 mg tablet RxNorm: 132276 Take 1 Tablet(s) Oral QHS every night at bedtime 5 No Stop Date Active Antacid 200 mg (as calcium carbonate 500 mg) chewable tablet RxNorm: 786324 Take 1 QD 5 No Stop Date [...] Item Item Code Result Date Service Location Basic Metabolic Panel No Glucose [id number] Sodium 2951-2 140 mmol/L 12/26/19 Unknown Basic Metabolic Panel No Glucose [id number] POTASSIUM (RICKI) 2823-3 4.5 mmol/L 12/26/19 Unknown Basic Metabolic Panel No Glucose BYWK7271 CHLORIDE (RICKI) 104 mmol/L 12/26/19 Unknown Basic Metabolic Panel No Glucose XAWS5572 CO2 (RICIK) 25 mmol/L 12/26/19 Unknown Basic Metabolic Panel No Glucose [id number] ANION GAP (RICKI) 11 mmol/L 12/26/19 Unknown Basic Metabolic Panel No Glucose [id number] UREA NITROGEN (RICKI) 27.4 mg/dL 12/26/19 Unknown Basic Metabolic Panel No Glucose [id number] Creatinine 2160-0 0.60 mg/dL 12/26/19 Unknown Basic Metabolic Panel No Glucose [id number] GFR, ESTIMATE 14954-6 88 mL/min/1.7 3m2 12/26/19 Unknown Basic Metabolic Panel No Glucose [id number] Calcium 32553-1 9.2 mg/dL 12/26/19 Unknown Glucose QOC1009 GLUCOSE (RICKI) 2345-7 74 mg/dL 12/03 Unknown SLUMS SLUMS 85812-1 24 12/22/19 Unknown PHQ9 PHQ9 01462-5 5 12/22/19 Unknown Procedures Procedure Codes Date SYST BP LT 130 MM HG CPT-4: 3074F 01/07/2025 DIAST BP <80 MM HG CPT-4: 30701/07/2025 SYST BP >/= 140 MM HG CPT-4: 307712/22/2024 DIAST BP <80 MM HG CPT-4: 307812/22/2024 POS CLIN DEPRES SCRN F/U DOC SNOMED CT: 77248092 CPT-4: G8431 12/22/2024 Vital Signs Date Vital 01/07/2025 Blood Pressure 1: 128/76 Code: 8480-6 Heart Rate 1: 82 bpm Code: 8867-4 Respiratory Rate: 16 bpm SpO2: 96% Temperature: 36.1 (C) / 96.9 (F) 12/22/2024 Blood Pressure 1: 142/77 Code: 8480-6 [...] Encounter Performer Location Location Address Codes Date (06785) Home or Residence Visit Est Pt - Moderate Level, 40 mins Diagnosis: Essential (primary) hypertension[ICD10: I10] Diagnosis: Spinal stenosis, lumbar region, without neurogenic claudication[ICD10: M48.061] Diagnosis: Parkinson's disease, unspecified whether dyskinesia present, unspecified whether manifestations fluctuate[ICD10: G20.A1] Judith Moserer [address] [address] CPT-4: 20346 01/07/2025 ([id number]) Home or Residence Visit TELEHEALTH DIRECTOR - High Level, 75 mins Diagnosis: Parkinson's disease, unspecified whether dyskinesia present, unspecified whether manifestations fluctuate[SNOMED: 26101178] Diagnosis: Essential tremor[SNOMED: 688095280] Diagnosis: Allergic rhinitis due to other allergen[SNOMED: 70437272] Diagnosis: Essential (primary) hypertension[SNOMED: 07247419] Diagnosis: Primary osteoarthritis, right shoulder[SNOMED: 534493533837690] Diagnosis: Female stress incontinence[SNOMED: 97443707] Diagnosis: MCI (mild cognitive impairment)[SNOMED: 866991035] Diagnosis: Spinal stenosis, lumbar region, without neurogenic claudication[SNOMED: 19520932] Diagnosis: History of ductal carcinoma in situ of breast[SNOMED: 20080062972166] Diagnosis: ACP (advance care planning)[SNOMED: 779097121] Diagnosis: Anxiety[SNOMED: 71327312] Judith Tolbert [facility] [address] [place] [address] CPT-4: 61700 12/22/2024 Plan of Care Planned Activity Notes Codes Status Date Appointment: Ann Tolbert WPtel: [phone] [place] F/U 01/07/2025 Patient Education: Patient Medication Summary Completed 01/07/2025 Patient Education: Influenza Complet ed 01/07/2025 Appointment: Ann Tolbert WPtel: [phone] [place] TELEHEALTH DIRECTOR 12/22/2024 Patient Education: Patient Medication Summary Completed 12/22/2024 Patient Education: Influenza Complet ed 12/22/2024 Care Plan: Basic Metabolic Panel Pen ding 12/22/2024 Instructions Comment Date Alysa resides at [facility]. Previously lived in [facility] in [place], [place]. from first , second of 30 years . Has 4 sons, Pedro .PMH: History of breast cancer (2013), Parkinsons disease, lumbar spinal stenosis, essential tremor, HTN, osteoarthritis of right shoulder, allergic rhinitisPrimary contact: Eric Fuentes (son/POA)Code Status: DNR/SelectLab Schedule: Dec/JuneSpecialists: Neurology ([facility]) 12/22/2024 Spinal stenosis, lumbar tylor on, without neurogenic claudication Exacerbated when she [...] BMP reviewed; no CKD, electrolytes stable.. 01/07/2025 History of ductal carcinoma in situ of [...] kidney function. MCI (mild cognitive impairment) SLUMS 24, she self administers medications nursing sets up for her. Managed on donepezil 5mg QHS. Parkinson's disease, unspecified whether dyskinesia present, unspecified whether manifestations fluctuate Follows with [facility] Q6[facility], next f/u is next week according to family. Uses walker as gait aid. Has not fallen in months according to patient. Takes 3 Sinemet QID and she feels when the medication wears off. Anxiety Feels her anxiety is generally well controlled on current medication. She hasn't had much of an appetite since she moved to [place].. 12/22/2024
--- OUTSIDE RECORDS SUMMARY | 2025-02-01 13:11 | XMS_ITS | Clinical Summary ---
Author Organization [place] Address [address] [facility] [place] [address] Care Team Providers Care Clinical Research Administrator Name Role Phone Azam Laguerre PA-C Primary Care Provider [phone] Marianela Paz PA-C Unavailable Allergies Active Allergy Reactions Criticality Noted Date Comments Morphine Nausea and Vomiting 09/26/2011 Medications ALPRAZolam (XANAX) 0.25 MG tablet Take 0.25-0.5 mg by mouth Active buPROPion (WELLBUTRIN XL) 150 MG 24 hr tablet Take 1 tablet by mouth as needed Active carbidopa-levod opa (SINEMET) 25-100 MG tablet Take 3 tablets by mouth 10/22/2023 Active vitamin B-12 (CYANOCOBALAMIN ) 2000 MCG tablet Take 1,000 mcg by mouth Active donepezil (ARICEPT) 5 MG tablet Take 5 mg by mouth 10/22/2023 Active escitalopram (LEXAPRO) 20 MG tablet Take 20 mg by mouth daily Active losartan (COZAAR) 100 MG tablet Take 100 mg by mouth daily Active multivitamin (ONE-DAILY) tablet Take 1 tablet by mouth daily Active oxyBUTYnin ER (DITROPAN XL) 15 MG 24 hr tablet Take 1 tablet by mouth daily Active oxyCODONE (ROXICODONE) 5 MG tablet Take 5 mg by mouth Active Active Problems Problem Noted Date Diagnosed Date Anxiety 01/13/2024 OAB (overactive bladder) 01/13/2024 Parkinson's disease 09/06/2022 MCI (mild cognitive impairment) 09/06/2022 Benign essential tremor 04/18/2017 Osteoarthritis of right glenohumeral joint 04/16 Breast neoplasm, 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 Lumpectomy, radiation Hypertension, essential 09/26/2011 Female stress incontinence 07/06/2004 Overview (01/13/2024): Incontinence Urinary Stress Female Allergic rhinitis 07/06/2004 Overview (01/13/2024): Rhinitis Allergic Social History Tobacco Use Types Packs/Day Years Used Date Smoking Tobacco: Never Smokeless Tobacco: Never Tobacco Cessation:Counseling Given: Not Answered Adolescent Education Answer Date Record ed Getting School Help Needed Not on file 09/08 Comments Unknown Sex and Gender Information Value Date Recorded Sex Assigned at Not on file Legal Sex Female 3:19 AM CERAMIC TILE SETTER Gender Identity Not on file Sexual Orientation Not on file Plan of Treatment Health Maintenance Due Date Last Done Comments ADVANCE CARE PLANNING 1940 ANNUAL REVIEW OF HM ORDERS 1940 FALL RISK ASSESSMENT 2005 ZOSTER IMMUNIZATION (2 of 3) 09/11/2012 07/17/2012 RSV VACCINE (1 - 1-dose 75+ series) 2015 MEDICARE ANNUAL WELLNESS VISIT 05/26/2019 05/26/2018, 08/28/2017 DTAP/TDAP/TD IMMUNIZATION (8 - Td or Tdap) 08/25/2022 08/25/2012, 07/19/2003, 06/08/1993, Additional history exists COVID-19 Vaccine ( season) 2024 09/24/2023, 11/14/2022, 09/09/2021, Additional history exists INFLUENZA VACCINE (#1) 2024 3, 08/09/2023, 09/18/2022, Additional history exists BMP 09/19/2024 09/19/2023, 02/14/2023 PHQ-2 (once per calendar year) 2024 01/13/2024 DEXA 04/13/2031 04/13/2016 Pneumococcal Vaccine: 50+ Years Completed 09/02/2014, 09/01/2011, 08/21/2011, Additional history exists HPV IMMUNIZATION Aged Out No longer e ligible based on patient's age to complete this topic MENINGITIS IMMUNIZATION Aged Out No l onger eligible based on patient's age to complete this topic Procedures Procedure Name Priority Date/Time Associated Diagnosis Comments TRIP CHARGE - LAB ONLY Routine 12/25/2024 2:34 PM CERAMIC TILE SETTER Parkinson's disease without dyskinesia, without mention of fluctuations (H) Essential tremor Other allergic rhinitis Essential (primary) hypertension Primary osteoarthritis, right shoulder Stress incontinence (female) (male) Mild cognitive impairment of uncertain or unknown etiology Spinal stenosis, lumbar region without neurogenic claudication Personal history of in-situ neoplasm of breast Other specified counseling Anxiety disorder, unspecified BASIC METABOLIC PANEL NO GLUCOSE (OUTREACH) Routine 12/25/2024 2:34 PM CERAMIC TILE SETTER Parkinson's disease without dyskinesia, without mention of fluctuations (H) Essential tremor Other allergic rhinitis Essential (primary) hypertension Primary osteoarthritis, right shoulder Stress incontinence (female) (male) Mild cognitive impairment of uncertain or unknown etiology Spinal stenosis, lumbar region without neurogenic claudication Personal history of in-situ neoplasm of breast Other specified counseling Anxiety disorder, unspecified GLUCOSE (OUTREACH) Routine 12/25/2024 2: 34 PM CERAMIC TILE SETTER Parkinson's disease without dyskinesia, without mention of fluctuations (H) Essential tremor Other allergic rhinitis Essential (primary) hypertension Primary osteoarthritis, right shoulder Stress incontinence (female) (male) Mild cognitive impairment of uncertain or unknown etiology Spinal stenosis, lumbar region without neurogenic claudication Personal history of in-situ neoplasm of breast Other specified counseling Anxiety disorder, unspecified BASIC METABOLIC PANEL Routine 09/19/2023 11:23 AM CDT Essential (primary) hypertension from Last 3 Months or Most Recently Relevant to Health Maintenance Results * Trip Charge - LAB ONLY (12/25/2024 2:34 PM CERAMIC TILE SETTER) Other TOPOGRAPHY UNKNOWN / Unknown Billing only / Unknown 12/25/2024 2:34 PM CERAMIC TILE SETTER 12/25/2024 6:48 PM CERAMIC TILE SETTER us Starr Tolbert PA-C LAB CHARGE PERFORMABL ES Final Result [facility] [address] * (ABNORMAL) Basic Metabolic Panel No Glucose (OUTREACH) (12/25/2024 2:34 PM CERAMIC TILE SETTER) Sodium 140 135 - 145 mmol/L 12/26/2024 2:36 AM CERAMIC TILE SETTER [facility] Potassium 4.5 3.4 - 5.3 mmol/L 12/26/2024 2:36 AM CERAMIC TILE SETTER [facility] Chloride 104 98 - 107 mmol/L 12/26/2024 2:36 AM CERAMIC TILE SETTER [facility] Carbon Dioxide (CO2) 25 22 - 29 mmol/L 12/26/2024 2:36 AM CERAMIC TILE SETTER [facility] Anion Gap 11 7 - 15 mmol/L 12/26/2024 2:36 AM CERAMIC TILE SETTER [facility] Urea Nitrogen 27.4(H) 8.0 - 23.0 mg/dL 12/26/2024 2:36 AM CERAMIC TILE SETTER [facility] Creatinine 0.60 0.51 - 0.95 mg/dL 12/26/2024 2:36 AM CERAMIC TILE SETTER [facility] GFR Estimate 88 >60 mL/min/1.7 3m2 12/26/2024 2:36 AM CERAMIC TILE SETTER [facility] Calcium 9.2 8.8 - 10.4 mg/dL 12/26/2024 2:36 AM CERAMIC TILE SETTER [facility] Comment:Reference intervals for this test were updated on 06/16/2024 to reflect our healthy population more accurately. There may be differences in the flagging of prior results with similar values performed with this method. Those prior results can be interpreted in the context of the updated reference intervals. Blood STRUCTURE OF RIGHT UPPER LIMB / Unknown Venipuncture / Unknown 12/25/2024 2:34 PM CERAMIC TILE SETTER 12/25/2024 6:48 PM CERAMIC TILE SETTER us Starr Tolbert PA-C LAB - BLOOD ORDERABLE S Final Result [facility] [place] [facility] [address], Room [address] * Glucose (OUTREACH) (12/25/2024 2:34 PM CERAMIC TILE SETTER) Glucose 74 70 - 99 mg/dL 12/26/2024 2:42 AM CERAMIC TILE SETTER [facility] Blood STRUCTURE OF RIGHT UPPER LIMB / Unknown Venipuncture / Unknown 12/25/2024 2:34 PM CERAMIC TILE SETTER 12/25/2024 6:48 PM CERAMIC TILE SETTER us Starr Tolbert PA-C LAB - BLOOD ORDERABLE S Final Result [facility] [place] [facility] [address] [facility], Room [address] * (ABNORMAL) Basic metabolic panel (09/19/2023 11:23 AM CDT) Sodium 138 135 - 145 mmol/L 09/19/2023 12:23 PM CDT [facility] Comment:Reference intervals for this test were updated on 08/27/2023 to more accurately reflect our healthy population. There may be differences in the flagging of prior results with similar values performed with this method. Interpretation of those prior results can be made in the context of the updated reference intervals. Potassium 4.6 3.4 - 5.3 mmol/L 09/19/2023 12:23 PM CDT [facility] Chloride 102 98 - 107 mmol/L 09/19/2023 12:23 PM CDT [facility] Carbon Dioxide (CO2) 29 22 - 29 mmol/L 09/19/2023 12:23 PM CDT [facility] Anion Gap 7 7 - 15 mmol/L 09/19/2023 12:23 PM CDT [facility] Urea Nitrogen 25.0(H) 8.0 - 23.0 mg/dL 09/19/2023 12:23 PM CDT [facility] Creatinine 0.68 0.51 - 0.95 mg/dL 09/19/2023 12:23 PM CDT [facility] GFR Estimate 86 >60 mL/min/1. 73m2 09/19/2023 12:23 PM CDT [facility] Calcium 9.1 8.8 - 10.2 mg/dL 09/19/2023 12:23 PM CDT [facility] Glucose 90 70 - 99 mg/dL 09/19/2023 12:23 PM CDT [facility] Blood STRUCTURE OF RIGHT UPPER LIMB / Unknown Client Draw / Unknown 09/19/2023 11:23 AM CDT 09/19/2023 12:00 PM CDT us Ashley Carrier [employer] D[employer] MAKER APPRENTICE LAB - BLOOD ORDERABLES Final Result [facility] [address] Lab (1st floor, no room number) [place] [address], [facility] [phone] from Last 3 Months or Most Recently Relevant to Health Maintenance Insurance MEDICARE ADVANTAGE [facility] [place] [id number] Care Teams Clinical Research Administrator Relationship Specialty Start Date End Date Azam Laguerre PA-C [facility] [id number] [facility] [place] [address] PCP - General 12/16/23 Marianela Paz PA-C [address] [address] Assigned Surgical Provider 01/24/24
--- OUTSIDE RECORDS SUMMARY | 2025-02-01 13:11 | XMS_ITS | Encounter Summary ---
Author Organization [facility] Address [address] [place] [address] Care Team Providers Care Lab Engineer Name Role Phone Found, No Pcp MD Primary Care Provider Unavailab le Reason for Visit * Reason Comments Follow-up MEDICATION CHECK Wearing off between doses, about 30-45min before next dose. Tremors come back, low energy FALL In August Other COVID in early Dec Encounter Details Date Type Department Care Team (Late st Contact Info) Description 12/29/2024 1:30 PM CRACKING MACHINE OPERATOR Office Visit [facility] [address] [place] [address] [phone] Elena Horan MD [address] [place], [place] [address] Parkinson's disease with dyskinesia and fluctuating manifestations (HRC) (Primary Dx); MCI (mild cognitive impairment); Spinal stenosis of lumbar region, unspecified whether neurogenic claudication present Social History Tobacco Use Types Packs/Day Years [...] on file documented as of this encounter Last Filed Vital Signs Vital Sign Reading Time Taken Comments Blood Pressure 81/57 12/29/2024 1:48 PM CRACKING MACHINE OPERATOR Pulse 81 12/29/2024 1:48 PM CRACKING MACHINE OPERATOR Temperature - - Respiratory Rate - - Oxygen Saturation - - Inhaled Oxygen Concentration - - Weight - - Height - - Body Mass Index - - documented in this encounter Patient Instructions * Patient Instructions* Elena Horan MD - 12/29/2024 1:30 PM CRACKING MACHINE OPERATOR Please contact us using [employer] or by calling the [facility] nurse line at [phone]. Two easy ways to stay connected with what is going on at [facility]: If you have not already done so, we encourage you to sign up (for free) to be on our e-mailing list, so that you will receive information about upcoming classes, events, and activities hosted by [facility]! To sign up, simply send an email to [email or web address] indicating that you would like to be included. 2. Follow us on Facebook to learn more about current news and upcoming events. Find us at [facility] [employer]! Learn more about our ongoing [facility] studies here! [email or web address] 1. Continue carbidopa/levodopa 25/100, 3 tablets 4 times a day, 7:30, 11, 2:30, 6:30 and take the CR at 7:30 pm 2. Continue with the same dose of donepezil, 5 mg every evening. 3. Continue with regular exercise. 4. Follow-up with me in 6 months time, sooner if necessary. KING MACHINE OPERATOR KING MACHINE OPERATOR documented in this encounter Progress Notes * Elena Horan MD - 12/29/2024 1:30 PM CST Neurology progress note. Chief complaint: Follow-up Parkinson's disease. History of present illness: This is an 84-year-old lady seen today in the company of her [id number] who comes to see me for follow-up of her Parkinson's disease. She lives in assisted living, and she gets her medications set out for her, and some help with morning ADLs, such as getting dressed and getting showers, but otherwise she is pretty independent. More tired since she had COVID 19 two weeks. She takes carbidopa/l evodopa 25/100, 3 tablets 4 times a day, plus carbidopa/levodopa CR 25/100, 1 tablet at bedtime. However she is not taking it as prescribed but rather different times to accommodate her meals. So shegoes 7:30 a.m., 11:00 a.m., 3:30 p.m., and 7:00 p.m., but as she does that she tends to wear off around 230-3 p.m. while she does better during the morning. She also has more trouble with restless legs when she goes to bed at night. She takes her CR around 830-9 o'clock, and then goes to bed after that. She has been using some magnesium lotion and she has found that somewhat helpful. She denies any increase in the cognitive difficulties, but she has had reduced endurance after COVID, and she had 1 fall when she tried to do her 1 mi walk, and try to continue to press on despite feeling her knees giving way and then she fell. He does have spinal stenosis with neurogenic claudication. She has not had any fainting episodes denies any hallucinations. I reviewed the past medical and surgical history, current medications allergies from the electronichealth record. 99/60, 76 sitting, 81/57, 81, standing, 138.7 lb. STM: 02/03 MIS: UPDRS ADL: 17 UPDRS motor score: 34 Mild dyskinesia. Impression: 1. Parkinson's disease stage II 2. Mild cognitive impairment in Parkinson's disease. 3. Lumbar spinal stenosis with chronic low back pain. 4. Anomia. Discussion: Objectively not changed since the last time I saw She wears off because he allows 4-1/2 hours between the 2nd and 3rd doses of levodopa so we decided to change her timing a little while and I gave her written directions. We also talked about taking the CR a little earlier also it has started takingeffect by the time she actually goes to bed. She will let me know if this does not work. Because ofher poor appetite we decided not to increase the dosage of donepezil today, plus she did pretty good with her memory testing today. I encouraged her to use the walker more consistently which he is doing, and to sit in the bench seat whenever she figures out that she gets weak enough that she needs a rest before she can go on. I encouraged her to resume her regular walks, which he has got back shesundeep perez came down with COVID 19. Follow-up will be in 6 months time, sooner if necessary. Recommendations: 1. Continue carbidopa/levodopa 25/100, 3 tablets 4 times a day, 7:30, 11, 2:30, 6:30 and take the CR at 7:30 pm 2. Continue with the same dose of donepezil, 5 mg every evening. 3. Continue with regular exercise. 4. Follow-up with me in 6 months time, sooner if necessary. Elena Horan MD KING MACHINE OPERATOR documented in this encounter Plan of Treatment Upcoming Encounters Date Type Department Care Team (Late st Contact Info) Description 08/19/2025 2:00 PM CDT Appointment [facility] [address] [place], [place] [phone] Elena Horan MD [address] [place], [place] [address] documented as of this encounter Visit Diagnoses Diagnosis Parkinson's disease with dyskinesia and fluctuating manifestations (HRC)- Primary MCI (mild cognitive impairment) Mild cognitive impairment, so stated Spinal stenosis of lumbar region, unspecified whether neurogenic claudication present documented in this encounter Care Teams Lab Engineer Relationship Specialty Start Date End Date Found, No Pcp, [address] [place] [address] PCP - General 03/20/19 documented as of this encounter
== END 2025-02-01 14:07 | disposition home or self-care (01) ==
PROVIDERS: Emergency Provider Emergency Medicine
DX: S01.01XA Laceration without foreign body of scalp, initial encounter (principal); M54.2 Cervicalgia; W01.10XA Fall on same level from slipping, tripping and stumbling with subsequent striking against unspecified object, initial encounter
CPT/HCPCS: 12002; 70450; 72125; 99283

== ENCOUNTER 2025-05-13 06:48 | Emergency (ER) | payer MEDICARE, SELFPAY ==
--- OUTSIDE RECORDS SUMMARY | 2023-05-22 09:00 | XMS_ITS | Continuity of Care Document ---
Author Organization [facility] enter Address [address] [place] [phone] Phone Care Team Providers Care Color Grinder Name Role Phone [facility] Unavailable Unava ilable Procedures Procedure Date N BLOCK INJ, SUPRASCAPULAR NEEDLE LOCALIZATION BY XRAY Advance Directives Directive Yes / No Effective Date File Name No Information Encounters Encounter Description Practice Location Reason(s) For Visit Diagnoses Date Provider Providers Copied on Encounter [facility], [address] [place] [address], [id number], tel:[phone] [place] [address] No Information 3 [facility]. [address] [place] [address], [id number], [place]. tel:[phone] Referring Provider: Mee Mcgarry, [address] [facility] [place], [address] . tel:[phone] [facility], [address] [place] [address], [id number], [place] tel:[phone] [place] [address] No Information 3 [facility]. [address] [place] [address], [id number], [place]. tel:[phone] Referring Provider: Mee Mcgarry [address] [facility] [place], [address] . tel:[phone] Family History Family Member Type Diagnosis Age At Onset No Information Payers Payer name Insurance type Covered constitution party ID Kyler coyle(s) [facility] Medicare Replacement 16 [id number] Social History Type Description Quantity Date Captured Comments Sex Female Smoking Status No Information Chief Complaint And Reason For Visit No Information Reason For Referral Reason For Referral No Information History Of Present Illness Encounter Date Complaint History Of Prese nt Illness No Information Functional Status Date Functional Assessmen t No Information Instructions Date Instruction Additional Infor mation No Information Assessments Type Assessment Date No Information Patient Care Teams Name Effective Dates (start - stop) Status Members No Information
--- OUTSIDE RECORDS SUMMARY | 2023-05-22 09:00 | XMS_ITS | Continuity of Care Document ---
Author Organization [facility] yasmine Address [address] [place] [address] Phone Care Team Providers Care Transit Man Name Role Phone Mee Mcgarry MD Unavailable Unavailable Allergies, Adverse Reactions, Alerts Substance Reaction Status Criticality morphine vomiting Active No Information Medications Medication Instructions Dosage Effective Dates (start - stop) Status Comments gabapentin 100 mg capsule Take 1 cap bedtime, increase by 1 cap every 3 days until able to take 3 caps at bedtime - Active ibuprofen 200 mg tablet Take 1-2 Tabs by mouth every 4 hours as needed for Pain. - Active donepezil 5 mg tablet take 1 tablet by oral route every day in the evening 5 MG - Active melatonin 3 mg capsule - Active losartan 100 mg tablet take 1 tablet by oral route every day 100 MG - Active carbidopa 25 mg-levodopa 100 mg tablet take 1 tablet by oral route 2 times every day 1 tablet - Active escitalopram 10 mg tablet take 1 tablet by oral route every day 10 MG - Active oxybutynin chloride ER 15 mg tablet,extended release 24 hr take 1 tablet by oral route every day 15 MG - Active diclofenac 1 % topical gel apply (2G) by topical route 3 times every day to the affected area(s) as needed for OA 2 G - No Longer Active please dispense a roll on if available Procedures Procedure Date Facet Jt In Or MBB j Lumbar BILATERAL Ju Facet Inj Or MBB Lumbar 2nd Level BILATE RAL OFFICE/OUTPATIENT VISIT, EST NEEDLE LOCALIZATION BY Flouroscopy N BLOCK INJ, SUPRASCAPULAR OFFICE/OUTPATIENT VISIT, EST OFFICE/OUTPATIENT VISIT, EST Substance Interv 15-30mn OFFICE/OUTPATIENT VISIT, NEW Advance Directives Directive Yes / No Effective Date File Name No Information Encounters Encounter Description Practice Location Reason(s) For Visit Diagnoses Date Provider Providers Copied on Encounter [facility], [address] [place], [place], [id number] , [place] tel:[phone] [facility] Other spondylosis, lumbar region 3 Malgorzata Caban. [address] [place], [place], [id number] , [place]. tel:[phone] Referring Provider: Halima [facility] [address] [facility], [address], [place], [address]. tel:[phone] OFFICE/OUTPA TIENT VISIT, EST [facility], [address] [place] [address], [id number] , [place] tel:[phone] [facility] bilateral shoulder pain (chief complaint) Chronic pain syndromePain in left shoulderOther intervertebral disc degeneration, lumbar regionIschial bursitisOther emt intermediate (current) drug therapyOther spondylosis, lumbar region 3 Zay Johnson. [address], [place], [place], [id number] , [place]. tel:[phone] Referring Provider: [facility]ima [facility] [address] [facility], [address], [place], [address]. tel:[phone] [facility], [address] [place] [address], [id number] , [place] tel:[phone] [facility] No Information 3 Mellissasa Elizabeth. [address], [place], [place], [id number] , [place]. tel:[phone] [facility], [address] [place] [address], [id number] , [place] tel:[phone] [facility] in left shoulder Apr-2 3 Malgorzata Caban. [address] [facility] [place], [place], [id number] , [place]. tel:[phone] Referring Provider: Halima Vigil [address] [facility], [address], [place], [address]. tel:[phone] OFFICE/OUTPA TIENT VISIT, [facility], [address] [place] [address] [place], [place], [id number] , [place] tel:[phone] [facility] bilateral shoulder pain (chief complaint) ParkinsonismChro yasmine pain syndromeOther intervertebral disc degeneration, lumbar regionIschial bursitisPain in left shoulderOther detention (current) drug therapy Apr- 3 Mellissa Elizabeth. [address], [place], [place], [id number] , [place]. tel:[phone] Referring Provider: Halima Vigil [address] [facility], [address], [place], [address]. tel:[phone] OFFICE/OUTPA TIENT VISIT, [facility], [address] [place] [address], [id number] , [place] tel:[phone] [facility] Low back pain (chief complaint) Chronic pain syndromeParkinso nismOther intervertebral disc degeneration, lumbar regionIschial bursitis Apr-0 1 Mellissasa Elizabeth. [address], [place], [id number] , [place]. tel:[phone] Referring Provider: Halima Vigil [address] [facility], [address], [place], [address]. tel:[phone] OFFICE/OUTPA TIENT VISIT, [facility], [address] [place] [address] [place], [place], [id number] , [place] tel:[phone] [facility] low back pain (chief complaint) Chronic pain syndromeEncounte r for screening for other disorderParkinso nismOther intervertebral disc degeneration, lumbar regionIschial bursitis Jan-0 1 Zay Johnson. [address], [place], [place], [id number] , [place]. tel:[phone] Referring Provider: Halima [facility]il [facility] [address] [facility], [address], [place], [address]. tel:[phone] Family History Family Member Type Diagnosis Age At Onset No Information Payers Payer name Insurance type Covered constitution party ID Authorraymona jonna(s) [employer] Medicare Replacement 16 [id number] Social History Type Description Quantity Date Captured Comments Sex Female Smoking Status No Information Chief Complaint And Reason For Visit No Information Reason For Referral Reason For Referral No Information Plan Of Treatment Date Type Action Status Goal Medication Reconciliation. D ue on due Goal PHQ-9. Due on du e Goal Update Social History. Due o n due Goal Height. Due on d ue Goal Unhealthy drug use screening . Due on due Goal Tobacco Use. Due on 023 due Goal Zoster vaccine (). Due on due Goal Weight. Due on d ue Goal Review Allergy List. Due on due Goal Zoster vaccine (1st). Due on due Goal Unhealthy drug use screening . Due on due Goal Medication Reconciliation. D ue on due Goal Weight. Due on d ue Goal PHQ-9. Due on du e Goal Height. Due on d ue Goal Update Social History. Due o n due Goal Tobacco Use. Due on 023 due Goal Review Allergy List. Due on due History Of Present Illness Encounter Date Complaint History Of Prese nt Illness Comments: Alysa is a 82 y/o female who presents for follow up and medication management in the setting of chronic low back and BL shoulder pain (L>R). She is accompanied by her eytfnmuz-as-cpf today who also contributes to her discussion of care. Pain has been fluctuating this month. Low back pain has been the most bothersome. Willing to consider SCS trial but would like to proceed with the RFA first.S/p L Suprascapular Nerve Block on 03/29/[address] Mcgarry provided minimal relief. Although it did not decrease the overall pain, she does note a decrease in the sharp sensation.Reports current medication regimen provides minimal pain relief and does not allow for increased functionality. Have been utilizing Gabapentin 100mg with minimal benefit. Notes she is taking Advil BID. Denies other side effects from current medication regimen. No other concerns today. bilateral shoulder pain Duration : chronic. Severity level is 5. It occurs constantly and is fluctuating. Location: bilateral shoulder. The pain is aggravated by lifting and sitting. The pain is relieved by ice, physical therapy, rest and walking. bilateral shoulder pain Duration : ongoing. Severity level is 10. It occurs constantly and is worsening. Location: bilateral low back. The pain is stabbing. The pain is aggravated by lifting, standing and prolonged positioning. The pain is relieved by ice, OTC medicines (aspercreme), rest and stretching. Comments: Alysa is a 82 y/o female presenting for her first in-person follow-up in two years with [facility] regarding BL shoulder (L > R) and low back pain. She is accompanied by a family member (daughter in-law) who participates in today's discussion of care. Reports feeling more pain described as stabbing in her low back. 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 Reports her L shoulder pops out periodically, and doesn't return back to normal position anymore. She had a follow-up with orthopedics at [facility] last week and she reports they could not help her with the pain since the joint has been replaced. Reports she received imaging and RIGO with [facility] on 03/11/2023 for low back pain. She has not yet noticed benefit from the RIGO but will continue to monitor.She has previously tried x16 sessions of PT and other chiropractic therapies and [facility]. She does not prefer acupuncture d/t pain increasing when laying prone. Denies trying TENS previously. She reports two prior injections in her low back and does not specify efficacy.She is currently managing pain with topical aspercreme on both shoulders. She has previously tried medical cannabis but reports SE of dizziness and fatigue. She has not tried gabapentin or lyrica previously. Notes dx of Parkinson's and being concerned of medication interactions. Low back pain Duration: chroni c. The problem is fluctuating. It occurs persistently. Location of pain is lower back. Pain is radiated to the buttocks.The patient describes the pain as an ache, burning and shooting. Symptoms are aggravated by ascending stairs and sitting. Symptoms are relieved by ice, over the counter medication: ibuprofen and physical therapy. Low back pain (comments) Alysa wilkinson s here for initial follow-up on lower back pain and buttock pain. She states pain is the same since last OV. She tried Acupuncture x 1 without relief, diclofenac cream did not help all . She has gone to PT x 1 , She plans to continue . She is not interested in any narcotics. We discussed SCS vs Ganglion Impar No other concerns today low back pain Severity level i s 8. Duration: chronic. It occurs intermittently. Location of pain is lower back and gluteal area.The patient describes the pain as an ache and stabbing. Symptoms are aggravated by bending, changing positions, standing and movement. Symptoms are relieved by lying down, stretching, rest, sitting and walking. low back pain (comments) Alysa wilkinson s here for an initial consult and presents with low back pain, initial onset 1-2 years ago. The pain is primarily located in the tailbone area and is aggravated when she stands after prolonged sitting. She uses a treadmill to stay active regularly, but the pain can limit her activity level. The pain does not affect her sleep. She completed a CT and MRI which showed scoliosis and stenosis. She recalls a hip X-ray in [place] about 1.5 years ago, results normal. Reports some relief for a few weeks from SI joint injection at [facility] in 12/2020, but the pain quickly returned. She consulted a surgeon who did not recommend surgery because of high risk from scoliosis and her age.Referred by Nancy Montero COM WRITER for Dr. Lorenzo.Treatment Tried:bilateral SI joint injection 12/22 - not helpful.bilateral ischial bursa injections - not helpful.advil - takes the edge off.Tylenol - not helpful.PT 07/2020 - somewhat helpful.icy-hot cream - not helpful.Pt goal: [facility] to take over pain management.Reports hx of depression and anxiety, rx'ed lexapro. Functional Status Date Functional Assessmen t No Information Instructions Date Instruction Additional Infor mation No Information Assessments Type Assessment Date No Information Patient Care Teams Name Effective Dates (start - stop) Status Members No Information
--- OUTSIDE RECORDS SUMMARY | 2023-05-22 09:00 | XMS_ITS | Continuity of Care Document ---
Author Organization [facility] enter Address [address] [place] [address] Phone Care Team Providers Care Telesales Agent Name Role Phone [facility] Unavailable Unava ilable Procedures Procedure Date N BLOCK INJ, SUPRASCAPULAR NEEDLE LOCALIZATION BY XRAY Advance Directives Directive Yes / No Effective Date File Name No Information Encounters Encounter Description Practice Location Reason(s) For Visit Diagnoses Date Provider Providers Copied on Encounter [facility], [address] [place] [address], [id number], tel:[phone] [place] [address] No Information 3 [facility]. [address] [place] [address], [id number], [place]. tel:[phone] Referring Provider: Mee Mcgarry, [address] [facility] [place], [address] . tel:[phone] [facility], [address] [place] [address], [id number], [place] tel:[phone] [place] [address] No Information 3 [facility]. [address] [place] [address], [id number], [place]. tel:[phone] Referring Provider: Mee Mcgarry [address] [place], [address] . tel:[phone] Family History Family Member Type Diagnosis Age At Onset No Information Payers Payer name Insurance type Covered constitution party ID Kyler coyle(s) [facility] Medicare Replacement 16 [id number] Social History Type Description Quantity Date Captured [...]
--- OUTSIDE RECORDS SUMMARY | 2023-05-22 09:00 | XMS_ITS | Continuity of Care Document ---
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 [address] [place], [place], [id number] , [place]. tel:[phone] Referring Provider: Halima Vigil [facility] [address] [address], [address], [place], [address]. tel:[phone] OFFICE/OUTPA TIENT VISIT, EST [facility], [address] [place] [address], [id number] , [place] tel:[phone] [facility] bilateral shoulder pain (chief complaint) Chronic pain syndromePain in left shoulderOther intervertebral disc degeneration, lumbar regionIschial bursitisOther salvage determiner (current) drug therapyOther spondylosis, lumbar region 3 Zay Johnson. [address], [place], [place], [id number] , [place]. tel:[phone] Referring Provider: Halima Vigil [facility] [address], [address], [place], [address]. tel:[phone] [facility], [address] [place] [address], [id number] , [place] tel:[phone] [facility] No Information 3 Mellissasa Elizabeth. [address], [place], [place], [id number] , [place]. tel:[phone] [facility], [address] [place] [address], [id number] , [place] tel:[phone] [facility] Pain in left shoulder Apr-2 3 Malgorzata Caban. [address] [facility] [place], [id number] , [place]. tel:[phone] Referring Provider: Halima Vigil [address], [address], [place], [address]. tel:[phone] OFFICE/OUTPA TIENT VISIT, [facility], [address] [place] [address] [place], [id number] , [place] tel:[phone] [facility] bilateral shoulder pain (chief complaint) ParkinsonismChro yasmine pain syndromeOther intervertebral disc degeneration, lumbar regionIschial bursitisPain in left shoulderOther nursing home (current) drug therapy Apr- 3 Mellissa Elizabeth. [address], [place], [place], [id number] , [place]. tel:[phone] Referring Provider: Halima Vigil [address], [address], [place], [address]. tel:[phone] OFFICE/OUTPA TIENT VISIT, [facility], [address] [place] [address], [id number] , [place] tel:[phone] [facility] Low back pain (chief complaint) Chronic pain syndromeParkinso nismOther intervertebral disc degeneration, lumbar regionIschial bursitis Apr-0 1 Mellissasa Elizabeth. [address], [place], [id number] , [place]. tel:[phone] Referring Provider: Halima Vigil [address], [address], [place], [address]. tel:[phone] OFFICE/OUTPA TIENT VISIT, [facility], [address] [place] [address] [place], [id number] , [place] tel:[phone] [facility] low back pain (chief complaint) Chronic pain syndromeEncounte r for screening for other disorderParkinso nismOther intervertebral disc degeneration, lumbar regionIschial bursitis Jan-0 1 Zay Johnson. [address], [place], [place], [id number] , [place]. tel:[phone] Referring Provider: Halima Vigil [facility] [address] [facility] [facility], [address], [place], [address]. tel:[phone] Family History Family Member Type Diagnosis Age At Onset No Information Payers Payer name Insurance type Covered libertarian ID Kyler coyle(s) Blue [employer] Medicare Replacement 16 [id number] Social History Type Description Quantity Date Captured Comments Sex Female Smoking Status No Information Chief Complaint And Reason For Visit No Information Reason For Referral Reason For Referral No Information Plan Of Treatment Date Type Action Status Goal Review Allergy List. Due on due Goal Tobacco Use. Due on 023 due Goal Medication Reconciliation. D ue on due Goal Unhealthy drug use screening . Due on due Goal Zoster vaccine (1st). Due on due Goal Weight. Due on d ue Goal PHQ-9. Due on du e Goal Update Social History. Due o n due Goal Height. Due on d ue Goal Height. Due on d ue Goal Tobacco Use. Due on 023 due Goal Review Allergy List. Due on due Goal Update Social History. Due o n due Goal PHQ-9. Due on du e Goal Zoster vaccine (1st). Due on due Goal Unhealthy drug use screening . Due on due Goal Weight. Due on d ue Goal Medication Reconciliation. D ue on due History Of Present Illness Encounter Date Complaint History Of Prese nt Illness bilateral shoulder pain Duration : chronic. Severity level is 5. It occurs constantly and is fluctuating. Location: bilateral shoulder. The pain is aggravated by lifting and sitting. The pain is relieved by ice, physical therapy, rest and walking. Comments: Alysa is a 82 y/o female who presents for follow up and medication management in the setting of chronic low back and BL shoulder pain (L>R). She is accompanied by her [id number] today who also contributes to her discussion [...] current medication regimen. No other concerns today. Comments: Alysa is a 82 y/o female presenting for her first in-person follow-up in two years with [facility] regarding BL shoulder (L > R) [...] She had a follow-up with orthopedics at [facility] last week and she reports they could [...] Parkinson's and being concerned of medication interactions. bilateral shoulder pain Duration : ongoing. Severity level is 10. It occurs constantly and is worsening. Location: bilateral low back. The pain is stabbing. The pain is aggravated by lifting, standing and prolonged positioning. The pain is relieved by ice, OTC medicines (aspercreme), rest and stretching. Low back pain (comments) Alysa wilkinson s [...] vs Ganglion Impar No other concerns today Low back pain Duration: chroni c. The problem is fluctuating. It occurs persistently. Location of pain is lower back. Pain is radiated to the buttocks.The patient describes the pain as an ache, burning and shooting. Symptoms are aggravated by ascending stairs and sitting. Symptoms are relieved by ice, over the counter medication: ibuprofen and physical therapy. low back pain (comments) Alysa wilkinson s [...] stenosis. She recalls a hip X-ray in [place] about 1.5 years ago, results normal. Reports some relief for a few weeks from SI joint injection at [facility] in 12/2020, but the pain quickly returned. She consulted a surgeon who did not recommend surgery because of high risk from scoliosis and her age.Referred by Nancy Montero NP for Dr. Lorenzo.Treatment Tried:bilateral SI joint injection 12/22 - not helpful.bilateral ischial bursa injections - not helpful.advil - takes the edge off.Tylenol - not helpful.PT 07/2020 - somewhat helpful.icy-hot cream - not helpful.Pt goal: [facility] to take over pain management.Reports hx of depression and anxiety, rx'ed joseapro. low back pain Severity level i s 8. Duration: chronic. It occurs intermittently. Location of pain is lower back and gluteal area.The patient describes the pain as an ache and stabbing. Symptoms are aggravated by bending, changing positions, standing and movement. Symptoms are relieved by lying down, stretching, rest, sitting and walking. Functional Status Date Functional Assessmen t No Information Instructions Date Instruction Additional Infor mation No Information Assessments Type Assessment Date No Information Patient Care Teams Name Effective Dates (start - stop) Status Members No Information
--- OUTSIDE RECORDS SUMMARY | 2024-05-12 09:00 | XMS_ITS | Continuity of Care Document ---
Author Organization [facility] Address [address] [address] [place] [address] Phone Care Team Providers Care Customer Support Advisor Name Role Phone Dmitriy POLLACK, Raulito Unavailable Unavailable Allergies, Adverse Reactions, Alerts Substance Reaction Status Criticality morphine nausea Active No Information Medications Medication Instructions Dosage Effective Dates (start - stop) Status Comments dicyclomine 10 mg capsule take 1 capsule by mouth twice a day: take at night before bed and first thing in morning for bowel urgency - Active carbidopa 25 mg tablet take 2 tablet by oral route 3 times every day 50 MG - Active donepezil 5 mg tablet take 1 tablet by o ral route every day in the evening 5 MG - Active escitalopram 20 mg tablet take 1 tablet by oral route every day 20 MG - Active tangerine flavor (bulk) powder - Active Calcium 600 600 mg (1,500 mg) Tab Take 1 tablet by mouth daily - Active Multivitamin unknown Oral - Active Ultimate Women's Complete 50+ 8 mg iron-400 mcg-300 mcg tablet - Active losartan 25 mg tablet take 0.5 tablet by oral route every day 12.5 MG - Active oxybutynin chloride ER 15 mg tablet,extended release 24 hr take 1 Tablet by oral route every day 15 MG - Active Advil 200 mg tablet take 1 tablet by ora l route every 6 hours as needed with food 200 MG - Active Procedures Procedure Date Offic/outpt E&m Estab Mod-hi 2 24 Offic/outpt E&m New Mod-hi Colorectal Ca Screen Hi Risk I 14 Colonoscopy Flex; W/remov Les- 08 Level Iv-surg Path Gross/micro 08 Advance Directives Directive Yes / No Effective Date File Name No Information Encounters Encounter Description Practice Location Reason(s) For Visit Diagnoses Date Provider Providers Copied on Encounter Offic/outpt E&m Estab Mod-hi 2 [facility], [address] [address], [facility] [place] [place] [id number], [place] tel:[phone] [facility] GI Symptoms or Concerns (chief complaint) Irritable bowel syndrome with diarrhea 4 Dmitriy Cabezas. [address] [facility], [facility] [address], [place], [id number], [place]. tel:[phone] Eloisa Meza MD. tel:[phone] ring Provider: Azam ESCOBEDO, [address], [place], [address]. tel:[phone] [facility], [address] [address], [facility] [place], [id number], [place] tel:[phone] [facility] No Information 4 Garrett Pfeiffer. [address] [facility], [facility] [address], [place], [id number], [place]. tel:[phone] [facility], [address] [address], [facility] [place], [id number], [place] tel:[phone] [facility] No Information 1 Daniel Ware. [address] [facility], [facility] [address], [place], [id number], [place]. tel:[phone] Offic/outpt E&m New Mod-hi [facility], [address] [address], [facility] [place] [id number], [place] tel:[phone] [facility] GI Symptoms or Concerns (chief complaint) Acute diarrhea 1 Daniel Ware. [address] [facility] [address], [place], [id number], [place]. tel:[phone] Eloisa Meza MD. tel:[phone] ring Provider: [place] Monter[place], [address] [facility] [address], [place], [address]. [phone] [facility], [address] [address], [facility] [place], [address], [place] tel:[phone] No Information May- No Information Referring Provider: [place], [address] [facility] [address], [place], [address]. tel:[phone] [facility], [address] [address], [facility] [place], [id number], [place] tel:[phone] [facility] HemorrhoidsFami ly history of cancer of GI tractHemorrhoid sFamily Hx GI Tract Cancer 0 201 4 Kay Albert. [address], [id number], [place]. tel:[phone] [facility], [address] [address], [facility] [place], [address], [place] tel:[phone] [facility] Colon Cancer ScreeningFamily Hx GI Tract CancerRectal Polyp/Benign 0200 8 Prince Simmons. [address], [id number], [place]. tel:[phone] Referring Provider: Eloisa Caal, [address] [place], [address]. tel:[phone] Family History Family Member Type Diagnosis Age At Onset Father Problem (finding) prostate cancer Father Problem (finding) Mother Problem (finding) Mother Problem (finding) cancer of colon Immunizations Vaccine Date Status Comments SARS-COV-2 (COVID-19) vaccin e, mRNA, spike protein, LNP, preservative free, 50 mcg/0.5 mL dose administered Note: [facility] bi-direct ional interface ; Source: Other Registry Influenza, adjuvanted, inactivated, quadrivalent, injectable, preservative free administered Note: [facility] bi-directional interface ; Source: Other Registry influenza, seasonal vaccine, quadrivalent, adjuvanted, 0.5mL dose, preservative free administered Note: [facility] bi-di rectional interface ; Source: Other Registry SARS-COV-2 (COVID-19) vaccin e, mRNA, spike protein, LNP, bivalent, preservative free, 30 mcg/0.3 mL dose, dalton-sucrose formulation administered Note: [facility] bi-direct ional interface ; Source: Other Registry Influenza, high-dose, split virus, quadrivalent, injectable, preservative free administered Note: [facility] bi-direct ional interface ; Source: Other Registry influenza, high-dose seasona l, quadrivalent, 0.7mL dose, preservative free administered Note: [facility] bi-direct ional interface ; Source: Other Registry Influenza, high-dose, split virus, quadrivalent, injectable, preservative free administered Note: [facility] bi-direct ional interface ; Source: Other Registry influenza, high-dose seasona l, quadrivalent, 0.7mL dose, preservative free administered Note: [facility] bi-direct ional interface ; Source: Other Registry SARS-COV-2 (COVID-19) vaccin e, mRNA, spike protein, LNP, preservative free, 30 mcg/0.3mL dose administered Note: [facility] bi-direct ional interface ; Source: Other Registry SARS-COV-2 (COVID-19) vaccin e, mRNA, spike protein, LNP, preservative free, 30 mcg/0.3mL dose administered Note: [facility] bi-direct ional interface ; Source: Other Registry SARS-COV-2 (COVID-19) vaccin e, mRNA, spike protein, LNP, preservative free, 30 mcg/0.3mL dose administered Note: [facility] bi-direct ional interface ; Source: Other Registry Influenza, high-dose, split virus, quadrivalent, injectable, preservative free administered Note: [facility] bi-direct ional interface ; Source: Other Registry influenza, high-dose seasona l, quadrivalent, 0.7mL dose, preservative free administered Note: [facility] bi-direct ional interface ; Source: Other Registry influenza, high-dose seasona l, quadrivalent, .7mL dose, preservative free administered Note: [facility] bi-direct ional interface ; Source: Other Registry Engerix-B administered Note: [facility] bi-d irectional interface ; Source: Other Registry Influenza, adjuvanted, inactivated, trivalent, injectable, preservative free administered Note: [facility] bi-directional interface ; Source: Other Registry Seasonal trivalent influenza vaccine, adjuvanted, preservative free administered Note: [facility] bi-direct ional interface ; Source: Other Registry Influenza, high-dose, split virus, trivalent, injectable, preservative free administered Note: [facility] bi-direct ional interface ; Source: Other Registry influenza, high dose seasona l, preservative-free administered Note: [facility] bi-direct ional interface ; Source: Other Registry influenza virus vaccine, unspecified formulation administered Note: [facility] bi-di rectional interface ; Source: Other Registry Influenza, high-dose, split virus, trivalent, injectable, preservative free administered Note: [facility] bi-direct ional interface ; Source: Other Registry influenza, high dose seasona l, preservative-free administered Note: [facility] bi-direct ional interface ; Source: Other Registry Havrix administered Note: [facility] bi-d irectional interface ; Source: Other Registry Prevnar 13 administered Note: [facility] bi-d irectional interface ; Source: Other Registry tetanus toxoid, reduced diphtheria toxoid, and acellular pertussis vaccine, adsorbed administered Note: [facility] b i-directional interface ; Source: Other Registry Influenza, split virus, trivalent, injectable, contains preservative administered Note: [facility] bi-direct ional interface ; Source: Other Registry Influenza, seasonal, injectable administe red Note: [facility] bi- directional interface ; Source: Other Registry zoster vaccine, live administered Note: II bi-directional interface ; Source: Other Registry Influenza, split virus, trivalent, injectable, contains preservative administered Note: [facility] bi-direct ional interface ; Source: Other Registry Pneumovax 23 administered Note: [facility] bi-d irectional interface ; Source: Other Registry Influenza, seasonal, injectable administe red Note: [facility] bi- directional interface ; Source: Other Registry Novel [id number], all formulations administered Note: [facility] bi-direct ional interface ; Source: Other Registry Influenza, split virus, trivalent, injectable, preservative free administered Note: [facility] bi-direct ional interface ; Source: Other Registry Influenza, seasonal, injecta ble, preservative free administered Note: [facility] bi-direct ional interface ; Source: Other Registry influenza virus vaccine, unspecified formulation administered Note: [facility] bi-di rectional interface ; Source: Other Registry Pneumovax 23 administered Note: [facility] bi-d irectional interface ; Source: Other Registry tetanus and diphtheria toxoi ds, adsorbed, preservative free, for adult use (2 Lf of tetanus toxoid and 2 Lf of diphtheria toxoid) administered Note: [facility] bi-direct ional interface ; Source: Other Registry tetanus and diphtheria toxoi ds, adsorbed, preservative free, for adult use (2 Lf of tetanus toxoid and 2 Lf of diphtheria toxoid) administered Note: [facility] bi-direct ional interface ; Source: Other Registry diphtheria, tetanus toxoids and pertussis vaccine administered Note: [facility] bi-direct ional interface ; Source: Other Registry measles, mumps and rubella v irus vaccine administered Note: [facility] bi-direct ional interface ; Source: Other Registry diphtheria, tetanus toxoids and pertussis vaccine administered Note: [facility] bi-direct ional interface ; Source: Other Registry diphtheria, tetanus toxoids and pertussis vaccine administered Note: [facility] bi-direct ional interface ; Source: Other Registry diphtheria, tetanus toxoids and pertussis vaccine administered Note: [facility] bi-direct ional interface ; Source: Other Registry Payers Payer name Insurance type Covered alliance party ID Authoriza tiimne(s) Blue Cross Medicare Advantage BL [id number] 2000 Social History Type Description Quantity Date Captured Comments Alcohol Use Details Unknown Caffeine Use Details Unknown Tobacco Use Status No Information Smoking Status No Information Sex Female Vital Signs Date / Time: Height Weight BMI Pulse Rate Blood Pressure Temperature Respiratory Rate Body Surface Area Head Circumference Head Circ. Percentile Wt./[place]. Percentile BMI percentile Pulse Ox Inhaled Ox 1:52 PM 68.00 in 62.596 kg (138.00 lbs) 20.9 8 kg/m eter (2) 82 /min 103/58 mm[Hg] Chief Complaint And Reason For Visit From encounter dated '05/12/2024 14:00'. GI Symptoms or Concerns (chief complaint). Description: A very pleasant 83-year-old female who returns for followup today. She is accompanied by her epuqmfqn-ur-noy. The patient stays at an assistingliving facility. Her chief complaint today is diarrhea that originally started around late March. At that time, she reports that she was having multiple episodes of loose stools throughout the day. At that time, she was tested for C. diff at the assisted living facility, which was negative, but no other infectious workup was done. Over the course of the next few weeks, she has been taking an mevs-cmz-tmooeli probiotic as well as Imodium. If she takes the Imodium, she typically goes into a cycleof not having a bowel motion for 1 day followed by diarrhea the next day. Over the course of the last 7 to 10 days, her stool has now improved in consistency as well as frequency and she is now having 1 to 2 Power 4-5 stools every day without urgency. She is no longer experiencing episodes of inco ntinence or urgency. It appears that when she saw us in clinic in June 2021, she had similar symptoms except at that time, the diarrhea had only lasted for 10 days. She was recommended Imodium, dicyclomine, and consideration for a colonoscopy. Her last colonoscopy was in 2013 and she was recommended a 10-year recall, but the patient is not keen for that given her advanced age.The patient does take Advil 200 mg 2 times a day. She denies smoking. She does have a family history of colon cancer in the mother. Also of note, the patient reports a sick contact who had similar symptoms around the same time and ate similar food, but got better much earlier than the patient. Reason For Referral Reason For Referral No Information History Of Present Illness Encounter Date Complaint History Of [facility] nt Illness GI Symptoms or Concerns A very p moni 83-year-old female who returns for followup today. She is accompanied by her lcnobqce-wb-cgb. The patient stays at an assisting living facility. Her chief complaint today is diarrhea that originally started around late March. At that time, she reports that she was having multiple episodes of loose stools throughout the day. At that time, she was tested for C. diff at the assisted living facility, which was negative, but no other infectious workup was done. Over the course of the next few weeks, she has been taking an wbep-xvy-oasxusz probiotic as well as Imodium. If she takes the Imodium, she typically goes into a cycle of not having a bowel motion for 1 day followed by diarrhea the next day. Over the course of the last 7 to 10 days, her stool has now improved in consistency as well as frequency and she is now having 1 to 2 Power 4-5 stools every day without urgency. She is no longer experiencing episodes of incontinence or urgency. It appears that when she GI Symptoms or Concerns I had th e pleasure of meeting with Ms. Alysa Fuentes, 81-year-old woman, seen as a self-referred new patient for evaluation of acute diarrhea.Alysa tells me that she has had diarrhea for 10 days. She is going 2 or 3 times a day with significant urgency. This started spontaneously and prior to this, she was making a formed robust daily bowel movement. She does note that she started a medical cannabis pill approximately 2 to 3 weeks prior to the diarrhea starting, but otherwise no other new medicines or dietary changes or travel.She says that she has had intermittent diarrhea for 8 years. Typically, she will have flares of diarrhea and at times that can go away on their own. She does make reference to having a workup for this around 2-1/2 years ago while in [place], was given some pills that she cannot recall and that cleared up the diarrhea, though she does admit that the diarrhea has cleared up on its own before and it is possible it was a coincidence in terms of t Functional Status Date Functional Assessmen t No Information Instructions Date Instruction Additional Infor linwood Therefore, we agreed on the following plan:1. Psyllium, 2 capsules twice daily.2. Imodium every other day as needed.3. Continue to work on reducing the Advil dosing/frequency if possible. The patient will discuss this with her Parkinson's and other specialists.4. If diarrhea returns, the patient will call us back and I would order a flexible sigmoidoscopy for microscopic colitis. She will reconsider her decision regarding her colonoscopy, especially given the family history and let us known if she is agreeable to that instead. Related to Irritable bowel syndrome with diarrhea 1. Comprehensive sto ol panel for infection.2. Okay to try Imodium 2 to 4 mg daily.3. We will send a prescription for dicyclomine 10 mg to use twice per day in hopes of controlling the urgency.4. Stop the marijuana pill.I gave her instructions to try some medication for the next 10 to 14 days. If symptoms resolve, then she can try weaning off the Imodium and the dicyclomine and if either one is helpful, then they are safe to use in the long term care phlebotomist. If the diarrhea persists and stool studies are negative, then we may need to perform a colonoscopy to rule out microscopic colitis. She does have the family history of colon cancer, though is at an age where she can defer colonoscopy screening, which it appears she has done in the past.Alysa has my card and knows she can contact me at any time should the need arise.Thank you so much for involving me in the care of Ms. Fuentes. 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 It does appear that she is now turning the corner as her stools have improved. We discussed that Advil is a high-risk factor for microscopic colitis for which she remains at risk given her age and gender as well. She will discuss with her Parkinson's specialist as well also her back pain's specialist to see if there are any other alternatives that she can consider for her back pain. For now, I have recommended substituting as much of the ibuprofen as possible with extra-strength Tylenol. I do think she will benefit from fiber supplementation. She will complete her current course of bviv-gqo-zoykkeu probiotics, but as she is not certain if they have helped. If her diarrhea returns, even though she is not agreeable for a colonoscopy, she is agreeable for a flexible sigmoidoscopy and I think that should be our next step to take biopsies for microscopic colitis given her multiple risk factors. She can take Imodium as needed. Patient Care Teams Name Effective Dates (start - stop) Status Members No Information
--- OUTSIDE RECORDS SUMMARY | 2024-05-12 09:00 | XMS_ITS | Continuity of Care Document ---
Author Organization [facility] Address [address] [address] [place] [address] Phone Care Team Providers Care Design Teacher Name Role Phone Dmitriy POLLACK, Raulito Unavailable [...] on Encounter Offic/outpt E&m Estab Mod-hi 2 [facility], [address] [address], [facility] [place], [id number], [place] tel:[phone] [facility] GI Symptoms or Concerns (chief complaint) Irritable bowel syndrome with diarrhea 4 Dmitriy Cabezas. [address] [facility], [facility] [address], [place], [id number], [place]. tel:[phone] Eloisa Meza MD. tel:[phone] ring Provider: Azam ESCOBEDO, [address], [place], [address]. tel:[phone] [facility], [address] [address], [facility] [place], [address], [place] tel:[phone] [facility] No Information 4 Garrett Pfeiffer. [address] [facility], [facility] [address], [place], [id number], [place]. tel:[phone] [facility], [address] [address], [facility] [place], [address], [place] tel:[phone] [facility] No Information 1 Daniel Ware. [address] [facility], [facility] [address], [place], [id number], [place]. tel:[phone] Offic/outpt E&m New Mod-hi [facility], [address] [address], [facility] [place], [address], [place] tel:[phone] [facility] GI Symptoms or Concerns (chief complaint) Acute diarrhea 1 Daniel Ware. [address] [facility] [address], [place], [address], [place]. tel:[phone] Eloisa Meza MD. tel:[phone] ring Provider: Nancy Montero [place] M, [address] [facility] [address], [place], [address]. [phone] [facility], [address] [address], [facility] [place], [address], [place] tel:[phone] No Information May- No Information Referring Provider: [place] M, [address] [facility] [address], [place], [address]. tel:[phone] [facility], [address] [address], [facility] [place] [id number], [place] tel:[phone] [facility] HemorrhoidsFami ly history of cancer of GI tractHemorrhoid sFamily Hx GI Tract Cancer 0 201 4 Kay Albert. [address], [id number], [place]. tel:[phone] [facility], [address] [address], [facility] [place], [address], [place] tel:[phone] [facility] Colon Cancer ScreeningFamily Hx GI Tract CancerRectal Polyp/Benign 0200 8 Prince Simmons. [address], [id number], [place]. tel:[phone] Referring Provider: Eloisa Caal, [address] [place], [address]. tel:[phone] Family History Family Member Type Diagnosis Age [...] directional interface ; Source: Other Registry Novel [id number], all formulations administered Note: [facility] bi-direct ional [...] tetanus toxoids and pertussis vaccine administered Note: [facility] bi-direct ional interface ; Source: Other Registry diphtheria, tetanus toxoids and pertussis vaccine administered Note: [facility] bi-direct ional interface ; Source: Other Registry Payers Payer name Insurance type Covered alliance party ID Authoriza timine(s) Blue Cross Medicare Advantage BL [id number] 2000 Social History Type Description Quantity Date [...] followup today. She is accompanied by her ndrntwbg-ih-ydq. The patient stays at an assistingliving facility. [...] few weeks, she has been taking an iabf-zyc-vuotxpk probiotic as well as Imodium. If she takes the Imodium, she typically goes into a cycleof not having a bowel motion for 1 day followed by diarrhea the next day. Over the course of the last 7 to 10 days, her stool has now improved in consistency as well as frequency and she is now having [address] [place] 4-5 stools every day without urgency. She [...] Present Illness Encounter Date Complaint History Of [facility] nt Illness GI Symptoms or Concerns A very p moni 83-year-old female who returns for followup today. She is accompanied by her wmnexzwt-fz-bwh. The patient stays at an assisting living [...] few weeks, she has been taking an ivzq-xzv-panqwcp probiotic as well as Imodium. If she takes the Imodium, she typically goes into a cycle of not having a bowel motion for 1 day followed by diarrhea the next day. Over the course of the last 7 to 10 days, her stool has now improved in consistency as well as frequency and she is now having [address] [place] 4-5 stools every day without urgency. She [...] this around 2-1/2 years ago while in [place], was given some pills that she cannot [...] they are safe to use in the exterminator. If the diarrhea persists and stool studies [...] She will complete her current course of mbrg-vpz-xeiwimw probiotics, but as she is not certain [...]
--- OUTSIDE RECORDS SUMMARY | 2025-02-01 12:12 | XMS_ITS | CCD ---
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 Name Role Phone Judith Mayo Primary Care Provider Un available Unavailable Chronic Care Management Unavaila ble Summary Purpose DataExchange Insurance Providers Payer name Policy type / Coverage type Covered libertarian ID Effective Begin Date Effective End Date [place] Medicare Risk [id number] Unknown Un known Family history Runs in the family Diagnosis Age At Onset No Known Diseases N/A Social History Social History Element Codes Description Effec tive Dates Marital status Unknown Single 12/21/2024 Living arrangements Unknown Assisted Living 12/[address]: 878101149 Never smoker 12/[address]: 556266089 No Alcohol Consum ption 12/21/2024 Children Unknown Has Children 12/21/2024 Caregiver Assessment Unknown No healthcare POA on file 12/21/2024 Allergies, Adverse Reactions, Alerts Substance Reaction Codes Entered Date Inactivated Date Status Morphine Unknown 12/10/2024 No Inactive Date Ac tive Problems Condition Codes Effective Dates Condition St atus Advanced care planning - to document end of life discussions Unknown 12/22/2024 Active ACP (advance care planning) SNOMED CT: 980341130 ICD-10: Z71.89 ICD-9: V65.49 12/22/2024 Active Allergic rhinitis due to other allergen SNOMED CT: 97213652 ICD-10: J30.89 ICD-9: 477.8 12/22/[address]: 12786791 ICD-10: F41.9 ICD-9: 300.00 12/22/2024 Active Essential (primary) hypertension SNOMED CT: 54411934 ICD-10: I10 ICD-9: 401.9 12/22/2024 Active Essential tremor SNOMED CT: 456361687 ICD-10: G25.0 ICD-9: 333.1 12/22/2024 Active Female stress incontinence SNOMED CT: 60 350791 ICD-10: N39.3 ICD-9: 625.6 12/22/2024 Active History of ductal carcinoma in situ of breast SNOMED CT: 11916399046980 ICD-10: Z86.000 ICD-9: V13.89 12/22/2024 Active MCI (mild cognitive impairment) SNOMED CT: 057547774 ICD-10: G31.84 ICD-9: 331.83 12/22/2024 Active Parkinson's disease, unspecified whether dyskinesia present, unspecified whether manifestations fluctuate SNOMED CT: 48165908 ICD-10: G20.A1 ICD-9: 332.0 12/22/2024 Active Primary osteoarthritis, right shoulder SNOMED CT: 668954222152745 ICD-10: M19.011 ICD-9: 715.11 12/22/2024 Active Spinal stenosis, lumbar region, without neurogenic claudication SNOMED CT: 64673666 ICD-10: M48.061 ICD-9: 724.02 12/22/2024 Active Medications Medication Codes Instructions Start Date Stop Date Status Fill Instructions fluoxetine 40 mg capsule RxNorm: 011094 Take 1 Capsule(s) Oral QD 5 No Stop Date Active gabapentin 100 mg capsule RxNorm: 326800 Take 1 Capsule(s) Oral QD as needed 5 No Stop Date Active loperamide 2 mg capsule RxNorm: 459290 Take 2 Capsule(s) Oral take 2 caps po at onset of diarrhea, and may take 1 cap po fpr each loose stool thereafter. PRN max of 4 caps/24 hours PRN 5 No Stop Date Active ibuprofen 200 mg tablet RxNorm: 096394 Take 3 Tablet(s) Oral every 6 hours as needed 5 No Stop Date Active Aspercreme (lidocaine HCl) 4 % topical liquid roll-on RxNorm: 0763062 liquid roll-on Topical apply topically to lower back BID and may apply BID PRN 5 No Stop Date Active acetaminophen 500 mg tablet RxNorm: 026749 Take 2 Tablet(s) Oral every 6 hours as needed 5 No Stop Date Active Vitamin B-12 1,000 mcg tablet RxNorm: 348013 Take 1 Tablet(s) Oral QD 5 No Stop Date Active losartan 100 mg tablet RxNorm: 652957 Take 1 Tablet(s) Oral QD 5 No Stop Date Active carbidopa 25 mg-levodopa 100 mg tablet RxNorm: 148673 Take 3 Tablet(s) Oral QID 5 No Stop Date Active carbidopa ER 25 mg-levodopa 100 mg tablet,extended release RxNorm: 337463 Take 1 Tablet(s) Oral QHS every night at bedtime 5 No Stop Date Active donepezil 5 mg tablet RxNorm: 053365 Take 1 Tablet(s) Oral QHS every night at bedtime 5 No Stop Date Active Antacid 200 mg (as calcium carbonate 500 mg) chewable tablet RxNorm: 950936 Take 1 QD 5 No Stop Date Active Medication Administered No Medication Administered data Immunizations Vaccine Codes Dose Date Status Covid-19 (Adult) CVX: 312 999 09/11/2024 Tetanus, Diptheria, Pertussis CVX: 115 0.5 2023 Covid-19 (Adult) CVX: 312 1.0 09/24/2023 Influenza CVX: 205 1.0 08/09/2023 Influenza CVX: 197 1.0 09/18/2022 Influenza CVX: 197 1.0 09/09/2021 Influenza CVX: 197 1.0 09/12/2020 Hepatitis B CVX: 43 1.0 05/26/2018 HepA - Adult CVX: 52 1.0 07/12/2015 Pneumococcal CVX: 133 1.0 09/02/2014 Tetanus, Diptheria, Pertussis CVX: 115 1.0 2011 Zostavax CVX: 121 1.0 07/17/2012 Zoster CVX: 121 1.0 07/17/2012 Pneumococcal CVX: 33 1.0 08/21/2011 Pneumococcal CVX: 33 1.0 07/09/2005 TD CVX: 09 1.0 07/19/2003 Tetanus, Diptheria, Pertussis CVX: 09 1.0 2002 Measles, Mumps, Rubella CVX: 03 1.0 12/17/1986 Results Observation Observation Code Item Item Code Result Date Service Location Glucose [id number] GLUCOSE (RICKI) 2345-7 74 mg/dL 12/03 Unknown Basic Metabolic Panel No Glucose [id number] Sodium 2951-2 140 mmol/L 12/26/19 Unknown Basic Metabolic Panel No Glucose [id number] POTASSIUM (RICKI) 2823-3 4.5 mmol/L 12/26/19 Unknown Basic Metabolic Panel No Glucose [id number] CHLORIDE (RICKI) 104 mmol/L 12/26/19 Unknown Basic Metabolic Panel No Glucose [id number] CO2 (RICKI) 25 mmol/L 12/26/19 Unknown Basic Metabolic Panel No Glucose [id number] ANION GAP (RICKI) 11 mmol/L 12/26/19 Unknown Basic Metabolic Panel No Glucose [id number] UREA NITROGEN (RICKI) 27.4 mg/dL 12/26/19 Unknown Basic Metabolic Panel No Glucose [id number] Creatinine 2160-0 0.60 mg/dL 12/26/19 Unknown Basic Metabolic Panel No Glucose [id number] GFR, ESTIMATE 98935-9 88 mL/min/1.7 3m2 12/26/19 Unknown Basic Metabolic Panel No Glucose [id number] Calcium 42349-9 9.2 mg/dL 12/26/19 Unknown PHQ9 PHQ9 99759-2 5 12/22/19 Unknown SLUMS SLUMS 26331-8 24 12/22/19 Unknown Procedures Procedure Codes Date SYST BP >/= 140 MM HG CPT-4: 3077F 12/22/2024 DIAST BP <80 MM HG CPT-4: 3078F 12/22/2024 POS CLIN DEPRES SCRN F/U DOC SNOMED CT: 12546297 CPT-4: G8431 12/22/2024 Vital Signs Date Vital 12/22/2024 Blood Pressure 1: 142/77 Code: 8480-6 Heart Rate 1: 75 bpm Code: 8867-4 Respiratory Rate: 18 bpm SpO2: 100% Temperature: 36.8 (C) / 98.3 (F) Weight: 134 lbs Code: 3141-9 Functional Status Functional / Cognitive Codes Status Result Ef fective Dates Functional Assessment Unknown ADL - Dressing Independen t 12/22/2024 Functional Assessment Unknown ADL - Feeding Independent 12/22/2024 Functional Assessment Unknown ADL - Tolieting Independe nt 12/22/2024 Functional Assessment Unknown ADL - Bathing Needs Help 12/22/2024 Functional Assessment Unknown ADL - Grooming Independen t 12/22/2024 Functional Assessment Unknown ADL - Physical Ambulation Independent 12/22/2024 Functional Assessment Unknown iADL - Mod e of Transportation Dependent 12/22/2024 Functional Assessment Unknown iADL - Managing Medicatio n Needs Help 12/22/2024 Functional Assessment Unknown Other: Noemy pping, Finances, Housekeeping, Dependent 12/22/2024 Reason For Visit No Reason For Visit data Encounters Encounter Performer Location Location Address Codes Date ([address]) Home or Residence 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, 75 mins Diagnosis: Parkinson's disease, unspecified whether dyskinesia present, unspecified whether manifestations fluctuate[SNOMED: 13105225] Diagnosis: Essential tremor[SNOMED: 464299382] Diagnosis: Allergic rhinitis due to other allergen[SNOMED: 20883059] Diagnosis: Essential (primary) hypertension[SNOMED: 50603412] Diagnosis: Primary osteoarthritis, right shoulder[SNOMED: 609466771746173] Diagnosis: Female stress incontinence[SNOMED: 17819461] Diagnosis: MCI (mild cognitive impairment)[SNOMED: 474591260] Diagnosis: Spinal stenosis, lumbar region, without neurogenic claudication[SNOMED: 09498758] Diagnosis: History of ductal carcinoma in situ of breast[SNOMED: 98260201145481] Diagnosis: ACP (advance care planning)[SNOMED: 199095419] Diagnosis: Anxiety[SNOMED: 87068319] Judith Didi [facility] [address] [place] [address] CPT-4: 57397 12/22/2024 Plan of Care Planned Activity Notes Codes Status Date Patient Education: Patient Medication Summary Completed 12/22/2024 Patient Education: Influenza Complet ed 12/22/2024 Care Plan: Basic Metabolic Panel Pen ding 12/22/2024 Instructions Comment Date Alysa resides at [facility]. Previously lived in [facility] in [place], [place]. from first , second of 30 years . Has 4 sons, Pedro .PMH: History of breast cancer (2013), Parkinsons disease, lumbar spinal stenosis, essential tremor, HTN, osteoarthritis of right shoulder, allergic rhinitisPrimary contact: Eric Fuentes (son/POA)Code Status: DNR/[facility] Schedule: Specialists: Neurology (Fely'tsering) 12/22/2024 History of ductal carcinoma in situ of breast No longer undergoes screening mammograms. She had surgical removal and radiation about 10 years ago. Allergic rhinitis due to other allergen She would like an allergy pill for her rhinorrhea. Discussed with son and daughter in law who state it's been going on for longer than 6 months and she has been seen by ENT specialist with no real solution. Discussed possible air purifier family may trial in the future. Spinal stenosis, lumbar region, without neurogenic claudication She states if she lays down flat for 15 minutes it's helpful for another hour or so. She takes prn advil and tylenol for back pain as well. Has topical lidocaine as well. Son reports she has been seen by numerous doctors and pain specialists regarding her back pain. Not a surgical candidate, she has a regimen in the mornings that helps her. Sitting still for too long exacerbates things. Essential (primary) hypertension BP 142/77, stable. Check BMP for updated kidney function. MCI (mild cognitive impairment) SLUMS , she self administers medications nursing sets up for her. Managed on donepezil 5mg QHS. Parkinson's disease, unspecified whether dyskinesia present, unspecified whether manifestations fluctuate Follows with [facility] Q6M, next f/u is next week according to family. Uses walker as gait aid. Has not fallen in months according to patient. Takes 3 Sinemet QID and she feels when the medication wears off. Anxiety Feels her anxiety is generally well controlled on current medication. She hasn't had much of an appetite since she moved to [place].. 12/22/2024
--- OUTSIDE RECORDS SUMMARY | 2025-02-01 12:13 | XMS_ITS | CCD ---
Author Name Tj Mayo Address [address] [place] [address] Phone Organization [facility] Phone Care Team Providers Care Front Office Help Name Role Phone uJdith Mayo Primary Care Provider Un available Unavailable Chronic Care Management Unavaila ble Summary Purpose DataExchange Insurance Providers Payer name Policy type / Coverage type Covered democrat ID Effective Begin Date Effective End Date [place] Medicare Risk [id number] Unknown Un known Family history Runs in the family Diagnosis Age At Onset No Known Diseases N/A Social History Social History Element Codes Description Effec tive Dates Marital status Unknown Single 12/21/2024 Living arrangements Unknown Assisted Living 12/[address]: 357745335 Never smoker 12/[address]: 937397986 No Alcohol Consum ption 12/21/2024 Children Unknown Has Children 12/21/2024 Caregiver Assessment Unknown No healthcare POA on file 12/21/2024 Allergies, Adverse Reactions, Alerts Substance Reaction Codes Entered Date Inactivated Date Status Morphine Unknown 12/10/2024 No Inactive Date Ac tive Problems Condition Codes Effective Dates Condition St atus Essential (primary) hypertension ICD-10: I10 ICD-9: 401.9 01/07/2025 Active Parkinson's disease, unspecified whether dyskinesia present, unspecified whether manifestations fluctuate ICD-10: G20.A1 ICD-9: 332.0 01/07/2025 Active Spinal stenosis, lumbar region, without neurogenic claudication ICD-10: M48.061 ICD-9: 724.02 01/07/2025 Active Advanced care planning - to document end of life discussions Unknown 12/22/2024 Active ACP (advance care planning) SNOMED CT: 675945296 ICD-10: Z71.89 ICD-9: V65.49 12/22/2024 Active Allergic rhinitis due to other allergen SNOMED CT: 99231241 ICD-10: J30.89 ICD-9: 477.8 12/22/[address]: 16142401 ICD-10: F41.9 ICD-9: 300.00 12/22/2024 Active Essential tremor SNOMED CT: 883820760 ICD-10: G25.0 ICD-9: 333.1 12/22/2024 Active Female stress incontinence SNOMED CT: 60 245176 ICD-10: N39.3 ICD-9: 625.6 12/22/2024 Active History of ductal carcinoma in situ of breast SNOMED CT: 80342205614403 ICD-10: Z86.000 ICD-9: V13.89 12/22/2024 Active MCI (mild cognitive impairment) SNOMED CT: 694592835 ICD-10: G31.84 ICD-9: 331.83 12/22/2024 Active Primary osteoarthritis, right shoulder SNOMED CT: 980209198874015 ICD-10: M19.011 ICD-9: 715.11 12/22/2024 Active Medications Medication Codes Instructions Start Date Stop Date Status Fill Instructions fluoxetine 40 mg capsule RxNorm: 869427 Take 1 Capsule(s) Oral QD 5 No Stop Date Active gabapentin 100 mg capsule RxNorm: 129549 Take 1 Capsule(s) Oral QD as needed 5 No Stop Date Active loperamide 2 mg capsule RxNorm: 935790 Take 2 Capsule(s) Oral take 2 caps po at onset of diarrhea, and may take 1 cap po fpr each loose stool thereafter. PRN max of 4 caps/24 hours PRN 5 No Stop Date Active ibuprofen 200 mg tablet RxNorm: 944305 Take 3 Tablet(s) Oral every 6 hours as needed 5 No Stop Date Active Aspercreme (lidocaine HCl) 4 % topical liquid roll-on RxNorm: 8552081 liquid roll-on Topical apply topically to lower back BID and may apply BID PRN 5 No Stop Date Active acetaminophen 500 mg tablet RxNorm: 334083 Take 2 Tablet(s) Oral every 6 hours as needed 5 No Stop Date Active Vitamin B-12 1,000 mcg tablet RxNorm: 176225 Take 1 Tablet(s) Oral QD 5 No Stop Date Active losartan 100 mg tablet RxNorm: 931976 Take 1 Tablet(s) Oral QD 5 No Stop Date Active carbidopa 25 mg-levodopa 100 mg tablet RxNorm: 622838 Take 3 Tablet(s) Oral QID 5 No Stop Date Active carbidopa ER 25 mg-levodopa 100 mg tablet,extended release RxNorm: 453677 Take 1 Tablet(s) Oral QHS every night at bedtime 5 No Stop Date Active donepezil 5 mg tablet RxNorm: 016788 Take 1 Tablet(s) Oral QHS every night at bedtime 5 No Stop Date Active Antacid 200 mg (as calcium carbonate 500 mg) chewable tablet RxNorm: 988893 Take 1 QD 5 No Stop Date [...] Measles, Mumps, Rubella CVX: 03 1.0 12/17/1986 Procedures Procedure Codes Date SYST BP LT 130 MM HG CPT-4: 3074F 01/07/2025 DIAST BP <80 MM HG CPT-4: 3078F 01/07/2025 Vital Signs Date Vital 01/07/2025 Blood Pressure 1: 128/76 Code: 8480-6 Heart Rate 1: 82 bpm Code: 8867-4 Respiratory Rate: 16 bpm SpO2: 96% Temperature: 36.1 (C) / 96.9 (F) Functional Status Functional / Cognitive Codes Status [...] Encounter Performer Location Location Address Codes Date () Home or Residence Visit Est Pt - Moderate Level, 40 mins Diagnosis: Essential (primary) hypertension[ICD10: I10] Diagnosis: Spinal stenosis, lumbar region, without neurogenic claudication[ICD10: M48.061] Diagnosis: Parkinson's disease, unspecified whether dyskinesia present, unspecified whether manifestations fluctuate[ICD10: G20.A1] Judith Tolbert [place] [address] CPT-4: 58531 01/07/2025 Plan of Care Planned Activity Notes Codes Status Date Patient Education: Patient Medication Summary Completed 01/07/2025 Patient Education: Influenza Complet ed 01/07/2025 Appointment: Ann Tolbert WPtel: [address] [place], [place] [phone] ANALOG IC DESIGN ENGINEER 12/22/2024 Instructions Comment Date Alysa resides at [facility] [place]. Previously lived in [facility] in [place], [place]. from first , second of 30 years . Has 4 sons, Pedro .PMH: History of breast cancer (2013), Parkinsons disease, lumbar spinal stenosis, essential tremor, HTN, osteoarthritis of right shoulder, allergic rhinitisPrimary contact: Eric Fuentes (son/POA)Code Status: DNR/SelectLab Schedule: Specialists: Neurology ([facility]) 12/22/2024 Spinal stenosis, lumbar tlyor on, without neurogenic claudication Exacerbated when she gets a good night of sleep from not moving around as much. She walks a mile a day and cannot sit for too long. She enrolled herself in PT once a week again for flare ups of back pain. Patient is home bound given debility, gait instability and cognitive impairment. Patient uses DME and needs the assistance of another to leave home. Parkinson's disease, unspecified whether dyskinesia present, unspecified whether manifestations fluctuate No recent falls. Uses walker as gait aid. Had f/u with Parkinsons team last week. Now taking Sinemet 25/100 7:30, 11, 2:30, 6:30pm. she states this is working well. Essential (primary) hypertension BP 128/76, stable BMP reviewed; no CKD, electrolytes stable.. 01/07/2025
--- OUTSIDE RECORDS SUMMARY | 2025-03-23 21:55 | XMS_ITS | Encounter Summary ---
Author Organization [employer] Address [address], [place] [address] Care Team Providers Care Director Insurance Name Role Phone Found, No Pcp MD Primary Care Provider Unavailab le Reason for Visit * Reason Comments QUESTIONS, GENERAL Entered automaticall y based on patient selection in [place]. Encounter Details Date Type Department Care Team (Late st Contact Info) Description 03/23/2025 9:55 PM CDT E-Visit [facility] [address] [place] [id number] Elena Horan MD [address] [place], [place] [phone] Chief Comp: QUESTIONS, GENERAL Social History Tobacco Use Types Packs/Day Years [...] on file documented as of this encounter Nursing Notes * Samantha Mcknight RN - 04/27/2025 1:[address] Horan reviewed orthostatics and did not recommend any changes at this time. Faxed back Dr. Horan's written note to [facility] notifying them of this. * Samantha Mcknight RN - 04/23/2025 3:28 PM CDT Fax received from [facility] with log of orthostatic BPs. Dr. Horan, placed in folder for your review. * Samantha Mcknight RN - 03/25/2025 12:54 PM CDT Doctor's orders faxed to [facility] ([phone]). * Elena Horan MD - 03/25/2025 12:10 PM CDT Orthostatic blood pressures every other morning for 2 weeks, and as needed when symptomatic. Forward results to me in 2 weeks or sooner f necessary. Elena Horan MD 03/25/2025 * Kaylyn Hernandez RN - 03/24/2025 2:22 PM CDT Confirmed with the front end specialist that patient is on a cancellation list. Also reached out to Carmen via [employer] to confirm she is still living at [facility]. Dr Horan, please write for Dr's orders to check orthostatics every morning and as needed when symptomatic for two weeks and will fax to [facility] if Carmen confirms this is where she is still living. * Elena Horan MD - 03/24/2025 11:18 AM CDT Please call Callie and see if we can get some more information. If she is in a facility we need orthostatic blood pressures every other morning for 2 weeks, and as needed when symptomatic with report sent to us. Thanks. documented in this encounter Plan of Treatment Upcoming Encounters Date Type Department Care Team (Late st Contact Info) Description 08/19/2025 2:00 PM CDT Appointment [facility] [address] [place] [phone] Elena Horan MD [address] [place], [place] [phone] documented as of this encounter Visit Diagnoses Not on filedocumented in this encounter Care Teams Director Insurance Relationship Specialty Start Date End Date Found, No Pcp, [address] [place] [address] PCP - General 12/30/24 documented as of this encounter
--- OUTSIDE RECORDS SUMMARY | 2025-05-13 06:52 | XMS_ITS | Clinical Summary ---
Author Organization [facility] Address [address] [place] [address] Care Team Providers Care Adult Secondary Education Instructor Name Role Phone Found, No Pcp MD Primary Care Provider Unavailab le Source Comments You are receiving this document as you are listed as the primary care provider,follow-up provider, or the patient has been referred to you for consultation.This is in compliance with the Medicare and[facility] Hospital[facility] EHR Incentive Program,which states Providers who transition their patient to another setting of careor provider of care or refers their patient to another provider of care shouldprovide summary care record for each transition of care or referral. [facility] Allergies Active Allergy Reactions Criticality Noted Date [...] bedtime. 8p 90 Tablet 3 5 Active donepezil (ARICEPT) 5 MG tablet Take 1 Tablet (5 mg) by mouth daily at bedtime. 30 Tablet 11 5 Active carbidopa-levo dopa (SINEMET) 25-100 MG tablet Take 3 Tablets by mouth 4 times a day. 7:30a-11a-2:30p-6 :30p. 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 Nontoxic single thyroid nodule 02/12/2017 Overview (02/12/2017): CT noted, 01/2017, [place]. [place] ordered in [place] Solitary pulmonary nodule 02/12/2017 Overview (02/12/2017): Seen [...] Encounters Date Type Department Care Team Description 03/23/2025 9:55 PM CDT E-Visit [facility] [address] [place] [phone] Elena Horan MD Chief Comp: QUESTIONS, GENERAL 03/16/2025 Telephone [facility] [address] [place] [phone] Bety Talamantes RN QUESTIONS, GENERAL 03/11/2025 Telephone [facility] [address] [place] [phone] Danica Aguila, computer graphics illustrator Questions 03/08/2025 [facility] [address] [place] [address] Danica Aguila, RN Symptoms from Last 3 Months Immunizations Immunization Administration Dates Next Due DTP 11/11/1987, 6,12/16/1985,1984 Flu Vac Preserv Free (3+yrs) 08/16/2012,08/16/20 09 H1n1 Miv Sanofi 3+ Yr (Injected) 08/16/2010 HepA Adult (19+ yrs) 07/12/2015 HepB Adult (Engerix-B, 20+ y rs, 3 dose series) 05/26/2018 Influenza IIV3 (Trivalent) F luzone Highdose, 65+ Yrs (66006) 08/22/2016 Influenza IIV4 (Quadrivalent ) 0.5mL (01612) 08/31/2013 Influenza, Unspecified Formulation 09/01,09/17/1996,10/22/1994,1992 MMR 12/17/1986 [...] b 1932 Son 1 Luke Alive b 1963 Son 2 Pedro Alive b 1965 Son 3 Brent Alive b 1966 Son 4 Dennis Alive b 1970 Social [...] Comments Blood Pressure 81/57 12/29/2024 1:48 PM EMERGENCY SERVICES DIRECTOR Pulse 81 12/29/2024 1:48 PM EMERGENCY SERVICES DIRECTOR Temperature 36.6 C (97.8 F) 06/03/2017 8:49 [...] Info) Description 08/19/2025 2:00 PM CDT Appointment [facility] [address], [place] [phone] Elena Horan MD [address] [place], [place] [phone] Health Maintenance Due Date Last Done Comments Zoster/Shingles Vaccine (2 of 3) 09/11/2012 07/17/2012 RSV Vaccine (1 - 1-dose 75+ series) 2015 HepA Vaccine (2 of 2 - Risk 2-dose series) 01/12/2016 07/12/2015 Dexa 04/13/2018 04/13/2016, 09/01 (Completed) HepB Vaccine (2) 06/23/2018 05/26/2018 Medicare Annual Wellness Visit 12/02/2024 05/26/2018 COVID-19 Vaccine ( season) 2025 09/11/2024, 09/24/2023, 11/14/2022, Additional history exists DTaP/Tdap/Td Vaccine (9 - Tdap) 08/21/2034 08/21/2024, 08/25/2012, 08/25/2012 (Completed), Additional history exists Colonoscopy Discontinued 05/06/2014, 04/2014 (Completed), 07/03/2003, Additional history exists Pneumococcal Vaccine 50+ Yrs Completed 09/02/2014, 09/01/2011, 09/01/2011 (Completed), Additional history exists Influenza Vaccine Completed 09/11/2024, , 09/18/2022, Additional history exists Hib Vaccine Aged Out No longer eligi ble based on patient's age to complete this topic MCV4 Vaccine Aged Out No longer eligi ble based on patient's age to complete this topic Meningococcal B Vaccine Aged Out No l onger eligible based [...] CLINIC DXA REPORT Patient Name: Alysa Fuentes [place]: Kuldeep Gonzalez MD Densitometer: [employer] Discovery SL (S/N [id number]) [place]. 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
--- OUTSIDE RECORDS SUMMARY | 2025-05-13 06:52 | XMS_ITS | Clinical Summary ---
Author Organization [employer] Address [address] [facility] 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 Gender Identity Not on file Sexual Orientation Not on file Plan of Treatment Health Maintenance Due Date Last Done Comments ADVANCE CARE PLANNING 1940 ANNUAL REVIEW OF HM ORDERS 1940 FALL RISK ASSESSMENT 2005 ZOSTER VACCINE (2 of 3) 09/11/2012 07/17/2012 RSV VACCINE (1 - 1-dose 75+ series) 2015 MEDICARE ANNUAL WELLNESS VISIT 05/26/2019 05/26/2018, 08/28/2017 DTAP/TDAP/TD VACCINE (8 - Td or Tdap) 08/25/2022 08/25/2012, 07/19/2003, 06/08/1993, Additional history exists COVID-19 VACCINE ( season) 2024 09/24/2023, 11/14/2022, 09/09/2021, Additional history exists BMP 09/19/2024 09/19/2023, 02/14/2023 PHQ-2 (once per calendar year) 2024 01/13/2024 INFLUENZA VACCINE (Season Ended) 2025 08/09/2023, 08/09/2023, 09/18/2022, Additional history exists DEXA 04/13/2031 04/13/2016 PNEUMOCOCCAL VACCINE 50+ YEARS Completed 09/02/2014, 09/01/2011, 08/21/2011, Additional history exists HPV VACCINE Aged Out No longer eligi ble based on patient's age to complete this topic MENINGITIS VACCINE Aged Out No longer eligible based on patient's age to complete this topic Procedures Procedure Name Priority Date/Time Associated Diagnosis Comments RESPIRATORY SYNCYTIAL VIRUS RSV ANTIGEN Routine 04/01/2025 1:44 PM CDT Acute cough VITAMIN D DEFICIENCY SCREENING Routine 02/19/2025 9:44 AM CDT Altered mental status, unspecified Essential (primary) hypertension Other vitamin B12 deficiency anemias VITAMIN B12 Routine 02/19/2025 9:44 AM CDT Altered mental status, unspecified Essential (primary) hypertension Other vitamin B12 deficiency anemias TSH WITH FREE T4 REFLEX Routine 02/19/2025 9:44 AM CDT Altered mental status, unspecified Essential (primary) hypertension Other vitamin B12 deficiency anemias COMPREHENSIVE METABOLIC PANEL NO GLUCOSE (OUTREACH) Routine 02/19/2025 9:44 AM CDT Altered mental status, unspecified Essential (primary) hypertension Other vitamin B12 deficiency anemias GLUCOSE (OUTREACH) Routine 02/19/2025 9: 44 AM CDT Altered mental status, unspecified Essential (primary) hypertension Other vitamin B12 deficiency anemias CBC WITH PLATELETS Routine 02/19/2025 9: 44 AM CDT Altered mental status, unspecified Essential (primary) hypertension Other vitamin B12 deficiency anemias TRIP CHARGE - LAB ONLY Routine 02/18/2025 9:44 AM CDT Altered mental status, unspecified Essential (primary) hypertension Other vitamin B12 deficiency anemias URINE CULTURE Routine 02/15/2025 12:13 PM CDT Disorientation, unspecified ROUTINE UA WITH MICROSCOPIC Routine 02/15/2025 12:13 PM CDT Disorientation, unspecified BASIC METABOLIC PANEL Routine 09/19/2023 11:23 AM CDT Essential (primary) hypertension from Last 3 Months or Most Recently Relevant to Health Maintenance Results * (ABNORMAL) Respiratory Syncytial Virus (RSV) Antigen (04/01/2025 1:44 PM CDT) Respiratory Syncytial Virus antigen Positive( A) Negative 04/01/2025 10:02 PM CDT [facility] Swab NASOPHARYNGEAL STRUCTURE / Unknown Non-blood Collection / Unknown 04/01/2025 1:44 PM CDT 04/01/2025 5:46 PM CDT Narrative [facility] - 04/01/2025 10:02 PM CDT Test results must be correlated with clinical data. If necessary, results should be confirmed by a molecular assay or viral culture. us Judith Tolbert PA-C LAB - MICRO GENERAL OR DERABLES Final Result [facility] Inf. Diseases Diag. Lab [address] [facility], [address] [place] [phone] * (ABNORMAL) Comprehensive Metabolic Panel No Glucose (OUTREACH) (02/19/2025 9:44 AM CDT) Sodium 139 135 - 145 mmol/L 02/19/2025 3:43 PM CDT [facility] Potassium 4.5 3.4 - 5.3 mmol/L 02/19/2025 3:43 PM CDT [facility] Carbon Dioxide (CO2) 20(L) 22 - 29 mmol/L 02/19/2025 3:43 PM CDT [facility] Anion Gap 15 7 - 15 mmol/L 02/19/2025 3:43 PM CDT [facility] Urea Nitrogen 27.7(H) 8.0 - 23.0 mg/dL 02/19/2025 3:43 PM CDT [facility] Creatinine 0.55 0.51 - 0.95 mg/dL 02/19/2025 3:43 PM CDT [facility] GFR Estimate 90 >60 mL/min/1.7 3m2 02/19/2025 3:43 PM CDT [facility] Calcium 9.2 8.8 - 10.4 mg/dL 02/19/2025 3:43 PM CDT [facility] Chloride 104 98 - 107 mmol/L 02/19/2025 3:43 PM CDT [facility] Alkaline Phosphatase 121 40 - 150 U/L 02/19/2025 3:43 PM CDT [facility] AST 24 0 - 45 U/L 02/19/2025 3:43 PM CDT [facility] ALT <5 0 - 50 U/L 02/19/2025 3:43 PM CDT [facility] Protein Total 6.4 6.4 - 8.3 g/dL 02/19/2025 3:43 PM CDT [facility] Albumin 4.0 3.5 - 5.2 g/dL 02/19/2025 3:43 PM CDT [facility] Bilirubin Total 0.9 <=1.2 mg/dL 02/19/2025 3:43 PM CDT [facility] Blood STRUCTURE OF RIGHT UPPER LIMB / Unknown Venipuncture / Unknown 02/19/2025 9:44 AM CDT 02/19/2025 12:56 PM CDT Judith Tolbert PA-C LAB - BLOOD ORDERABLES Final Result Performing Organization Address City/State/[facility] Co de Phone Number [facility] [place] [facility] [address] [place] [address], Room [address] [place] [phone] * Glucose (OUTREACH) (02/19/2025 9:44 AM CDT) Glucose 83 70 - 99 mg/dL 02/19/2025 2:49 PM CDT [facility] Blood STRUCTURE OF RIGHT UPPER LIMB / Unknown Venipuncture / Unknown 02/19/2025 9:44 AM CDT 02/19/2025 12:56 PM CDT us Judith Tolbert PA-C LAB - BLOOD ORDERABLES Final Result [facility] [address] [place] [phone], [facility] * Vitamin D Deficiency (02/19/2025 9:44 AM CDT) Vitamin D, Total (25-Hydroxy) 42 20 - 50 ng/mL 02/19/2025 3:43 PM CDT [facility] Comment:optimum levels Blood STRUCTURE OF RIGHT UPPER LIMB / Unknown Venipuncture / Unknown 02/19/2025 9:44 AM CDT 02/19/2025 12:56 PM CDT Narrative [facility] - 02/19/2025 3:43 PM CDT Season, race, dietary intake, and treatment affect the concentration of 71-mjmuocz-Gjmwrip D. Values may decrease during winter months and increase during summer months. Vitamin D determination is routinely performed by an immunoassay specific for 25 hydroxyvitamin D3. If an individual is on vitamin D2(ergocalciferol) supplementation, please specify 25 [place] vitamin D2 and D3 level determination by LCMSMS test VITD23. Judith Tolbert PA-C LAB - BLOOD ORDERABLES Final Result Performing Organization Address [facility] Co de Phone Number LABORATORY [facility] Lab [address] [facility], [address] [phone] * TSH with free T4 reflex (02/19/2025 9:44 AM CDT) TSH 1.50 0.30 - 4.20 uIU/mL 02/19/2025 3:43 PM CDT [facility] Blood STRUCTURE OF RIGHT UPPER LIMB / Unknown Venipuncture / Unknown 02/19/2025 9:44 AM CDT 02/19/2025 12:56 PM CDT Judith Tolbert PA-C LAB - BLOOD ORDERABLES Final Result [facility] [place] [facility] [address] [facility], [address], [place] [phone] * (ABNORMAL) Vitamin B12 (02/19/2025 9:44 AM CDT) Vitamin B12 1,426(H) 232 - 1,245 pg/mL 02/19/2025 3:43 PM CDT [facility] Blood STRUCTURE OF RIGHT UPPER LIMB / Unknown Venipuncture / Unknown 02/19/2025 9:44 AM CDT 02/19/2025 12:56 PM CDT us Judith Tolbert PA-C LAB - BLOOD ORDERABLES Final Result [facility] [place] [facility] [address] [facility], [address] [place] [address] * (ABNORMAL) CBC with platelets (02/19/2025 9:44 AM CDT) Pathologist [facility] WBC Count 5.5 4.0 - 11.0 10e3/uL 02/19/2025 2:39 PM CDT [facility] RBC Count 4.00 3.80 - 5.20 10e6/uL 02/19/2025 2:39 PM CDT [facility] Hemoglobin 13.6 11.7 - 15.7 g/dL 02/19/2025 2:39 PM CDT [facility] Hematocrit 42.0 35.0 - 47.0 % 02/19/2025 2:39 PM CDT [facility] MCV 105(H) 78 - 100 fL 02/19/2025 2:39 PM CDT [facility] MCH 34.0(H) 26.5 - 33.0 pg 02/19/2025 2:39 PM CDT [facility] MCHC 32.4 31.5 - 36.5 g/dL 02/19/2025 2:39 PM CDT [facility] RDW 12.9 10.0 - 15.0 % 02/19/2025 2:39 PM CDT [facility] Platelet Count 368 150 - 450 10e3/uL 02/19/2025 2:39 PM CDT [facility] Blood STRUCTURE OF RIGHT UPPER LIMB / Unknown Venipuncture / Unknown 02/19/2025 9:44 AM CDT 02/19/2025 12:56 PM CDT us Judith Tolbert PA-C LAB - BLOOD ORDERABLES Final Result [facility] [place] [facility] [address] [facility], [address] [phone] * Trip Charge - LAB ONLY (02/18/2025 9:44 AM CDT) Other TOPOGRAPHY UNKNOWN / Unknown Billing only / Unknown 02/18/2025 9:44 AM CDT 02/19/2025 12:56 PM CDT us Judith Tolbert PA-C LAB CHARGE PERFORMABLE S Final Result [facility] [address] * (ABNORMAL) UA with Microscopic (02/15/2025 12:13 PM CDT) Color Urine Yellow Colorless, Straw, Light Yellow, Yellow 02/15/2025 4:56 PM CDT [facility] Appearance Urine Clear Clear 02/16/20 4:56 PM CDT [facility] Glucose Urine Negative Negative mg/dL 02/15/2025 4:56 PM CDT [facility] Bilirubin Urine Negative Negative 4:56 PM CDT [facility] Ketones Urine Negative Negative mg/dL 02/15/2025 4:56 PM CDT [facility] Specific [place] Urine 1.017 1.003 - 1.035 02/15/2025 4:56 PM CDT [facility] Blood Urine Negative Negative 02/15/2025 4:56 PM CDT [facility] pH Urine 7.5(H) 5.0 - 7.0 02/15/2025 4:56 PM CDT [facility] Protein Albumin Urine Negative Negative mg/dL 02/15/2025 4:56 PM CDT [facility] Urobilinogen Urine Normal Normal, 2.0 mg/dL 02/15/2025 4:56 PM CDT [facility] Nitrite Urine Negative Negative 02/15/2025 4:56 PM CDT [facility] Leukocyte Esterase Urine Small(A) Negative 02/15/2025 4:56 PM CDT [facility] Mucus Urine Present(A) None Seen /LPF 02/15/2025 4:56 PM CDT [facility] RBC Urine 1 <=2 /HPF 02/15/2025 4:56 PM CDT [facility] WBC Urine 2 <=5 /HPF 02/15/2025 4:56 PM CDT [facility] Squamous Epithelials Urine 1 <=1 /HPF 02/15/2025 4:56 PM CDT [facility] Urine URINE SPECIMEN / Unknown Non-blood Collection / Unknown 02/15/2025 12:13 PM CDT 02/15/2025 3:54 PM CDT us Judith Tolbert PA-C LAB - URINE ORDERABLES Final Result Performing Organization Address City/[facility]/ZIP Co de Phone Number [facility] [place] [facility] [address] [facility], [address] * Urine Culture (02/15/2025 12:13 PM CDT) Culture <10,000 CFU/mL Mixture of Urogenital Nessa 02/17/2025 6:31 AM CDT [facility] Urine URINE SPECIMEN / Unknown Non-blood Collection / Unknown 02/15/2025 12:13 PM CDT 02/15/2025 3:54 PM CDT us Judith Tolbert PA-C LAB - MICRO GENERAL OR DERABLES Final Result [facility] Inf. Diseases Diag. Lab [address] [facility], [address] * (ABNORMAL) Basic metabolic panel (09/19/2023 [...] >60 mL/min/1. 73m2 09/19/2023 12:23 PM CDT LABORATORY Calcium 9.1 8.8 - 10.2 mg/dL 09/19/2023 12:23 PM CDT LABORATORY Glucose 90 70 - 99 mg/dL 09/19/2023 12:23 PM CDT LABORATORY Blood STRUCTURE OF RIGHT UPPER LIMB / Unknown Client Draw / Unknown 09/19/2023 11:23 AM CDT 09/19/2023 12:00 PM CDT us Ashley Alejo SPIRITUAL CARE COORDINATOR ARMATURE CONNECTOR LAB - BLOOD ORDERABLES Final Result [facility] [address] Lab (1st floor, no room number) [place] [address], [facility] [phone] from Last 3 Months or Most Recently Relevant to Health Maintenance Insurance [address] [place] [id number] [facility] MEDICARE ADVANTAGE [facility] MEDICARE ADVANTAGE Care Teams Truckload Owner Operator Relationship Specialty Start Date End Date Azam Laguerre PA-C [address] [place] [address] PCP - General 12/16/23 Marianela Paz PA-C [address] [place] [address] Assigned Surgical Provider 01/24/24
--- OUTSIDE RECORDS SUMMARY | 2025-05-13 06:53 | XMS_ITS | Patient Health Record ---
Author Organization [facility] Address [address] [place] [address] [address] [place] [address] Care Team Providers Care Supervisor Histology Name Role Phone Azam Laguerre PA-C Primary Care Provider Esteban Radford Unavailable [phone] Mercedez POLLACK, PhD, Yousif Unavailable Unavai lable Allergies No Known Allergies Reason For Referral No Information Medications Medication SIG (Take, Route, Frequency, Duration) Notes Start Date End Date Status Carbidopa 25 MG [address] ee times a day Active oxyBUTYnin Chloride ER 15 MG 1 tablet Orally Once a day Active Losartan Potassium 100 MG 1 tablet Orall y Once a day Active Advil 200 MG 1 tablet with food o r milk as needed Orally Three times a day Active Multivitamin Active Calcium Active Aspercreme Active Donepezil HCl 5 MG 1 tablet at bedtime Orally Once a day Active Escitalopram Oxalate 20 MG 1 tablet Oral ly Once a day Active [place] Flavor Act becca Social History Tobacco Use: Social History Observation Description Date Details (start date - stop date) Never Smoker NA - NA Tobacco Use/Smoking: Question Answer Notes Are you a nonsmoker Alcohol Screen Question Answer Notes Did you have a drink contain ing alcohol in the past year? Yes How often did you have a dri nk containing alcohol in the past year? Monthly or less (1 point) Points 1 Interpretation Negative Problems Problem Type SNOMED Code ICD Code Onset Dates Problem Status W/U Status Risk Notes Problem Parkinson's disease (89502418) Parkinson's disease (G20) Active confirmed Problem Acquired spondylolisthesis (186866118) Spondylolisthesi s, lumbar region (M43.16) Active confirmed Problem Age-related osteoporosis (864570340) Age-related osteoporosis without current pathological fracture (M81.0) Active confirmed Problem Somatic dysfunction of lumbar region (201931576) Segmental and somatic dysfunction of lumbar region (M99.03) Active confirmed Problem Somatic dysfunction of sacral region (387812644) Segmental and somatic dysfunction of sacral region (M99.04) Active confirmed Problem Abnormal gait (87762860) Unspecified abnormalities of gait and mobility (R26.9) Active confirmed Problem Low back pain (039652497) Low back pain (M54.50) Active confirmed Problem Shoulder joint pain (626200001) Pain in joint, shoulder region (M25.519) Active confirmed Plan Of Treatment No Information Insurance Providers Payer Name Payer Address Payer Phone Subscriber Number Group Number Insured Name Patient Relationship to Insured Coverage Start Date Coverage End Date [facility] [address] [address] [place] [address] [id number] [facility] - patient is the insured 2 Medical (General) History Medical History History ICD Code Anxiety Arthritis Cancer Claustrophobia Hernia Surgical History Surgery Date(Month/Year) Bilateral knee replacement Bilateral shoulder replacement
[2025-05-13 07:07] VITALS: BP 153/86; PULSE 85; RESP 16; TEMP 36.9; O2SAT 98; BMI 19.9
--- OUTSIDE RECORDS SUMMARY | 2025-05-13 07:50 | XMS_ITS | CCD ---
Author Name Tj Mayo Address [address] [facility] [address] [place] [address] Phone Organization [facility] Phone Care Team Providers Care Coke Drawer Hand Name Role Phone Judith Mayo Primary Care Provider Un available Unavailable Chronic Care Management Unavaila ble Summary Purpose DataExchange Insurance Providers Payer name Policy type / Coverage type Covered republican ID Effective Begin Date Effective End Date [place] Medicare Risk [id number] Unknown Un known Family history Runs in the family Diagnosis Age At Onset No Known Diseases N/A Social History Social History Element Codes Description Effec tive Dates Marital status Unknown Single 02/04/2025 Living arrangements Unknown Assisted Living 02/[address]: 775830562 Never smoker 05/[address]: 960952589 No Alcohol Consum ption 02/04/2025 Sexually Active? Unknown No 02/04/2025 Children Unknown Has Children 02/04/2025 Caregiver Assessment Unknown No [facility] re POA on file 02/04/2025 Patient Health Status Self Assessment Unknown Good 02/04/2025 Oral health Unknown Has seen Dentist in the last 12 months 02/04/2025 Do you worry about access to food? Unknown No 02/04/2025 Seatbelt safety Unknown Wears seatbelt 02/04/2025 Illicit Drug History Unknown Has never u sed illegal drugs 02/04/2025 Do you feel safe in your home? Unknown Yes 02/04/2025 Marital status Unknown Single 12/21/2024 Living arrangements Unknown Assisted Living 12/[address]: 101232200 Never smoker 12/[address]: 318942382 No Alcohol Consum ption 12/21/2024 Children Unknown Has Children 12/21/2024 Caregiver Assessment Unknown No [facility] re POA on file 12/21/2024 Allergies, Adverse Reactions, Alerts Substance Reaction Codes Entered Date Inactivated Date Status Morphine Unknown 12/10/2024 No Inactive Date Ac tive Problems Condition Codes Effective Dates Condition St atus Acute cough ICD-10: R05.1 ICD-9: 786.2 04/29/2025 Active Anxiety ICD-10: F41.9 ICD-9: 300.00 04/29/2025 Active Constipation, unspecified constipation type ICD-10: K59.00 ICD-9: 564.00 04/29/2025 Active Spinal stenosis, lumbar region, without neurogenic claudication ICD-10: M48.061 ICD-9: 724.02 04/29/2025 Active Loose stools ICD-10: R19.5 ICD-9: 787.7 03/30/2025 Active Parkinson's disease, unspecified whether dyskinesia present, unspecified whether manifestations fluctuate ICD-10: G20.A1 ICD-9: 332.0 03/30/2025 Active Altered mental status, unspecified altered mental status type ICD-10: R41.82 ICD-9: 780.97 03/04/2025 Active Bilateral irreducible inguinal hernias SNOMED CT: 796424014 ICD-10: K40.00 ICD-9: 550.92 03/04/2025 Active MCI (mild cognitive impairment) ICD-10: G31.84 ICD-9: 331.83 03/04/2025 Active Essential (primary) hypertension SNOMED CT: 98547747 ICD-10: I10 ICD-9: 401.9 02/18/2025 Active Vitamin B12 deficiency (dietary) anemia SNOMED CT: 11530390 ICD-10: D51.8 ICD-9: 281.1 02/18/2025 Active Adult general medical examination SNOMED CT: 182691011 ICD-10: Z00.00 ICD-9: V70.9 02/04/2025 Active Advance care planning SNOMED CT: 1209062 01 ICD-10: Z71.89 ICD-9: V65.49 02/04/2025 Active Allergic rhinitis due to other allergen ICD-10: J30.89 ICD-9: 477.8 02/04/2025 Active Essential tremor ICD-10: G25.0 ICD-9: 333.1 02/04/2025 Active Female stress incontinence ICD-10: N39.3 ICD-9: 625.6 02/04/[address]: 350988296 ICD-10: R54 ICD-9: 797 02/04/2025 Active Primary osteoarthritis, right shoulder ICD-10: M19.011 ICD-9: 715.11 02/04/2025 Active Advanced care planning - to document end of life discussions Unknown 12/22/2024 Active History of ductal carcinoma in situ of breast SNOMED CT: 77853344688502 ICD-10: Z86.000 ICD-9: V13.89 12/22/2024 Active Medications Medication Codes Instructions Start Date Stop Date Status Fill Instructions docusate sodium 100 mg capsule RxNorm: 6336875 Take 1 Capsule(s) Oral BID 5 Active acetaminophen 500 mg tablet RxNorm: 734644 Take 1 Tablet(s) Oral QID as needed 5 No Stop Date Active loperamide 2 mg capsule RxNorm: 577298 Take 2 Capsule(s) Oral QD as needed 5 No Stop Date Active cyanocobalamin (vit B-12) 1,000 mcg sublingual lozenge RxNorm: 756834 1 TABLET ORALLY DAILY (DX: SUPPLEMENT) 5 Active PLEASE SEND REFILLS.PHARMAC Y PLEASE PROFILE FOR FUTURE USE-[facility] Calcium Antacid 200 mg (as calcium carbonate 500 mg) chewable tablet RxNorm: 470351 CHEW & SWALLOW 1 TABLET ORALLY DAILY (DX: SUPPLEMENT) 5 Active PLEASE SEND REFILLS.PHARMAC Y PLEASE PROFILE FOR FUTURE USE-[facility] carbidopa 25 mg-levodopa 100 mg tablet RxNorm: 006897 Take 3 Tablet(s) Oral QID at 7:30, 11:00, 2:30 and 6:30, then take 1 tab up to twice in the evening between 12am and 5am PRN for breakthrough tremors 5 No Stop Date Active lidocaine 4 % topical patch RxNorm: 8301666 Apply 1 adhesive patch,medicated Topical QD as needed on for 12 hours, off for 12 hours 5 No Stop Date Active Vitafusion Women's Multi 120 mcg chewable tablet RxNorm: Take 1 Tablet(s) Oral QD 5 No Stop Date Active fluoxetine 40 mg capsule RxNorm: 653063 Take 1 Capsule(s) Oral QD 5 No Stop Date Active gabapentin 100 mg capsule RxNorm: 023194 Take 1 Capsule(s) Oral QD as needed 5 No Stop Date Active ibuprofen 200 mg tablet RxNorm: 298646 Take 3 Tablet(s) Oral every 6 hours as needed 5 No Stop Date Active Aspercreme (lidocaine HCl) 4 % topical liquid roll-on RxNorm: 8251454 liquid roll-on Topical apply topically to lower back BID and may apply BID PRN 5 No Stop Date Active losartan 100 mg tablet RxNorm: 813544 Take 1 Tablet(s) Oral QD 5 No Stop Date Active carbidopa ER 25 mg-levodopa 100 mg tablet,extended release RxNorm: 368821 Take 1 Tablet(s) Oral QHS every night at bedtime 5 No Stop Date Active donepezil 5 mg tablet RxNorm: 468637 Take 1 Tablet(s) Oral QHS every night at bedtime 5 No Stop Date Active loperamide 2 mg capsule RxNorm: 735407 Take 2 Capsule(s) Oral take 2 caps po at onset of diarrhea, and may take 1 cap po fpr each loose stool thereafter. PRN max of 4 caps/24 hours PRN 5 025 Inactive acetaminophen 500 mg tablet RxNorm: 086333 Take 2 Tablet(s) Oral every 6 hours as needed 5 025 Inactive Vitamin B-12 1,000 mcg tablet RxNorm: 975502 Take 1 Tablet(s) Oral QD 5 025 Inactive carbidopa 25 mg-levodopa 100 mg tablet RxNorm: 031251 Take 3 Tablet(s) Oral QID 5 025 Inactive Antacid 200 mg (as calcium carbonate 500 mg) chewable tablet RxNorm: 657162 Take 1 QD 01 025 Inactive Medication Administered No Medication Administered data Immunizations [...] Item Item Code Result Date Service Location Respiratory Syncytial Virus (RSV) Antigen [id number] RESPIRATORY SYNCYTIAL VIRUS ANTIGEN Positive 025 Unknown Glucose [id number] GLUCOSE (RICKI) 2345-7 83 mg/dL 01/31 12/03 025 Unknown Vitamin B12 LAB67 Vitamin B12 2132-9 1426 pg/mL 02/19 025 Unknown CBC with Platelets RYG230 WBC COUNT (AUTOMATED) 5.5 10e3/uL 025 Unknown CBC with Platelets SQZ729 RBC COUNT 789-8 4.00 10e6/uL 025 Unknown CBC with Platelets XXB259 Hemoglobin 718-7 13.6 g/dL 025 Unknown CBC with Platelets IUD464 Hematocrit 4544-3 42.0 % 025 Unknown CBC with Platelets QGO341 MCV 787-2 105 fL 025 Unknown CBC with Platelets MEW852 MCH 34.0 pg 025 Unknown CBC with Platelets IJM884 MCHC 32.4 g/dL 025 Unknown CBC with Platelets PIT467 RDW 12.9 % 025 Unknown CBC with Platelets XPG825 Platelet Count 777-3 368 10e3/uL 025 Unknown Comprehensive Metabolic Panel No Glucose WGOS1256 Sodium 139 mmol/L 025 Unknown Comprehensive Metabolic Panel No Glucose [id number] POTASSIUM (RICKI) 2823-3 4.5 mmol/L 025 Unknown Comprehensive Metabolic Panel No Glucose PIPL0936 CO2 (RICKI) 20 mmol/L 025 Unknown Comprehensive Metabolic Panel No Glucose [id number] ANION GAP (RICKI) 15 mmol/L 025 Unknown Comprehensive Metabolic Panel No Glucose ANDO6033 UREA NITROGEN (RICKI) 27.7 mg/dL 025 Unknown Comprehensive Metabolic Panel No Glucose SZPO2231 Creatinine 0.55 mg/dL 025 Unknown Comprehensive Metabolic Panel No Glucose NEJS1132 GFR, ESTIMATE 23126-4 90 mL/min/1.73 m2 025 Unknown Comprehensive Metabolic Panel No Glucose [id number] Calcium 9.2 mg/dL 025 Unknown Comprehensive Metabolic Panel No Glucose VAFW6581 CHLORIDE (RICKI) 104 mmol/L 025 Unknown Comprehensive Metabolic Panel No Glucose GLIL9022 Alkaline Phosphatase 121 U/L 025 Unknown Comprehensive Metabolic Panel No Glucose [id number] AST 24 U/L 025 Unknown Comprehensive Metabolic Panel No Glucose JGTY5738 ALT <5 U/L 025 Unknown Comprehensive Metabolic Panel No Glucose HSWJ8171 PROTEIN, TOTAL 2885-2 6.4 g/dL 025 Unknown Comprehensive Metabolic Panel No Glucose [id number] Albumin 4.0 g/dL 025 Unknown Comprehensive Metabolic Panel No Glucose [id number] Bilirubin Total 0.9 mg/dL 025 Unknown Vitamin D Deficiency BEW698 VITAMIN D DEFICIENCY SCREENING (RICKI) 42 ng/mL 025 Unknown TSH with Reflex to Free T4 HEN8175 TSH (RICKI) 54812-4 1.50 uIU/mL 025 Unknown Urine Culture 33709 URINE CULTURE 45563-2 SEE RESU LTS BELOW 025 Unknown UA with Microscopic 59788 COLOR Yellow 025 Unknown UA with Microscopic 22398 Appearance Clear 025 Unknown UA with Microscopic 20800 GLUCOSE, URINE Negative mg/dL 025 Unknown UA with Microscopic 63160 BILIRUBIN, URINE Negative 025 Unknown UA with Microscopic 67647 Ketones Urine Negative mg/dL 025 Unknown UA with Microscopic 65841 Specific [place] Urine 1.017 025 Unknown UA with Microscopic 41149 BLOOD, URINE Negative 025 Unknown UA with Microscopic 07610 pH Urine 7.5 025 Unknown UA with Microscopic 37577 Protein urine Negative mg/dL 025 Unknown UA with Microscopic 47101 UROBILINOGEN IRIS Normal mg/dL 025 Unknown UA with Microscopic 18065 Nitrites Negative 025 Unknown UA with Microscopic 36051 LEUK ESTERASE Small 025 Unknown UA with Microscopic 46458 Mucus Urine Present /LPF 025 Unknown UA with Microscopic 40818 RBC Urine 1 /HPF 025 Unknown UA with Microscopic 21412 SQUAMOUS EPITHELIAL 1 /HPF 025 Unknown UA with Microscopic 15014 WBC Urine 36985-5 2 /HPF 025 Unknown Glucose PGF7044 GLUCOSE (RICKI) 2345-7 74 mg/dL 12/03 04/02 025 Unknown Basic Metabolic Panel No Glucose [id number] Sodium 2951-2 140 mmol/L 025 Unknown Basic Metabolic Panel No Glucose TVQO9494 POTASSIUM (RICKI) 2823-3 4.5 mmol/L 025 Unknown Basic Metabolic Panel No Glucose UPXQ4967 CHLORIDE (RICKI) 104 mmol/L 025 Unknown Basic Metabolic Panel No Glucose LFRT2837 CO2 (RICKI) 25 mmol/L 025 Unknown Basic Metabolic Panel No Glucose GALG0078 ANION GAP (RICKI) 11 mmol/L 025 Unknown Basic Metabolic Panel No Glucose [id number] UREA NITROGEN (RICKI) 27.4 mg/dL 025 Unknown Basic Metabolic Panel No Glucose SEOH5114 Creatinine 2160-0 0.60 mg/dL 025 Unknown Basic Metabolic Panel No Glucose [id number] GFR, ESTIMATE 98846-5 88 mL/min/1.73 m2 025 Unknown Basic Metabolic Panel No Glucose [id number] Calcium 07727-6 9.2 mg/dL 025 Unknown PHQ9 PHQ9 59368-0 5 025 Unknown SLUMS SLUMS 62925-4 24 025 Unknown Procedures Procedure Codes Date SYST BP LT 130 MM HG CPT-4: 3074F 04/29/2025 DIAST BP <80 MM HG CPT-4: 307804/29/2025 SYST BP LT 130 MM HG CPT-4: 30703/30/2025 DIAST BP 80-89 MM HG CPT-4: 307903/30/2025 SYST BP >/= 140 MM HG CPT-4: 3077F 03/04/2025 DIAST BP >/= 90 MM HG CPT-4: 3080F 03/04/2025 SYST BP GE 130 - 139MM HG CPT-4: 3075F 2024 DIAST BP <80 MM HG CPT-4: 3078F 02/04/2025 POS CLIN DEPRES SCRN F/U DOC SNOMED CT: 77041580 CPT-4: G8431 02/04/2025 SYST BP LT 130 MM HG CPT-4: 3074F 01/07/2025 DIAST BP <80 MM HG CPT-4: 3078F 01/07/2025 SYST BP >/= 140 MM HG CPT-4: 3077F 12/22/2024 DIAST BP <80 MM HG CPT-4: 307F 12/22/2024 POS CLIN DEPRES SCRN F/U DOC SNOMED CT: 00419374 CPT-4: G8431 12/22/2024 Vital Signs Date Vital 04/29/2025 Blood Pressure 1: 101/60 Code: 8480-6 Heart Rate 1: 83 bpm Code: 8867-4 Respiratory Rate: 17 bpm SpO2: 96% Temperature: 36.7 (C) / 98.1 (F) 03/30/2025 Blood Pressure 1: 117/80 Code: 8480-6 Heart Rate 1: 83 bpm Code: 8867-4 Respiratory Rate: 16 bpm SpO2: 97% Temperature: 36.8 (C) / 98.3 (F) 03/04/2025 Blood Pressure 1: 140/90 Code: 8480-6 Heart Rate 1: 88 bpm Code: 8867-4 Respiratory Rate: 16 bpm SpO2: 97% Temperature: 36.9 (C) / 98.4 (F) 02/04/2025 Blood Pressure 1: 138/74 Code: 8480-6 BMI: NaN Code: 21847-8 Heart Rate 1: 81 bpm Code: 8867-4 Respiratory Rate: 18 bpm Temperature: 37.1 (C) / 98.7 (F) Weight: 133 lbs 6 oz Code: 3141-9 01/07/2025 Blood Pressure 1: 128/76 Code: 8480-6 [...] Independent 12/22/2024 Functional Assessment Unknown ADL - Toileting Independe nt 12/22/2024 Functional Assessment Unknown ADL [...] Encounter Performer Location Location Address Codes Date ([id number]) Home Visit - Est Pt, moderate Diagnosis: Constipation, unspecified constipation type[ICD10: K59.00] Diagnosis: Acute cough[ICD10: R05.1] Diagnosis: Spinal stenosis, lumbar region, without neurogenic claudication[ICD10: M48.061] Diagnosis: Anxiety[ICD10: F41.9] [facility] [address] CPT-4: 98276 04/29/2025 ([id number]) Home Visit - Est Pt, moderate Diagnosis: Constipation, unspecified constipation type[SNOMED: 48767128] Diagnosis: Loose stools[ICD10: R19.5] Diagnosis: Parkinson's disease, unspecified whether dyskinesia present, unspecified whether manifestations fluctuate[ICD10: G20.A1] Diagnosis: Acute cough[SNOMED: 825559524469324999] [facility] [address] [place] [phone] CPT-4: 35202 03/30/2025 ([id number]) Home Visit - Est Pt, moderate Diagnosis: Loose stools[SNOMED: 173986037] Diagnosis: Altered mental status, unspecified altered mental status type[ICD10: R41.82] Diagnosis: Parkinson's disease, unspecified whether dyskinesia present, unspecified whether manifestations fluctuate[ICD10: G20.A1] Diagnosis: MCI (mild cognitive impairment)[ICD10: G31.84] Diagnosis: Bilateral irreducible inguinal hernias[SNOMED: 340624263] [facility] [address] [place] [address] CPT-4: 48563 03/04/2025 ([id number]) Medicare Annual Wellness Visit- Subsequent Diagnosis: Adult general medical examination[SNOMED: 117796647] Diagnosis: Advance care planning[SNOMED: 939922710] Diagnosis: Frailty[SNOMED: 544910494] Diagnosis: Allergic rhinitis due to other allergen[ICD10: J30.89] Diagnosis: Essential (primary) hypertension[ICD10: I10] Diagnosis: Essential tremor[ICD10: G25.0] Diagnosis: Female stress incontinence[ICD10: N39.3] Diagnosis: MCI (mild cognitive impairment)[ICD10: G31.84] Diagnosis: Parkinson's disease, unspecified whether dyskinesia present, unspecified whether manifestations fluctuate[ICD10: G20.A1] Diagnosis: Primary osteoarthritis, right shoulder[ICD10: M19.011] Diagnosis: Spinal stenosis, lumbar region, without neurogenic claudication[ICD10: M48.061] Diagnosis: Anxiety[ICD10: F41.9] Judith Tolbert [facility] [address] [place] [phone] CPT-4: G0439 02/04/2025 ([id number]) Home or Residence Visit Est Pt - Moderate Level, 40 mins Diagnosis: Essential (primary) hypertension[ICD10: I10] Diagnosis: Spinal stenosis, lumbar region, without neurogenic claudication[ICD10: M48.061] Diagnosis: Parkinson's disease, unspecified whether dyskinesia present, unspecified whether manifestations fluctuate[ICD10: G20.A1] Judith Tolbert [facility] [id number] [place] [address] CPT-4: 86110 01/07/2025 ([id number]) Home or Residence 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 Level, 75 mins Diagnosis: Parkinson's disease, unspecified whether dyskinesia present, unspecified whether manifestations fluctuate[SNOMED: 26529462] Diagnosis: Essential tremor[SNOMED: 577512982] Diagnosis: Allergic rhinitis due to other allergen[SNOMED: 00893324] Diagnosis: Essential (primary) hypertension[SNOMED: 74482663] Diagnosis: Primary osteoarthritis, right shoulder[SNOMED: 381034936400443] Diagnosis: Female stress incontinence[SNOMED: 76569745] Diagnosis: MCI (mild cognitive impairment)[SNOMED: 608350961] Diagnosis: Spinal stenosis, lumbar region, without neurogenic claudication[SNOMED: 88194596] Diagnosis: History of ductal carcinoma in situ of breast[SNOMED: 81685754298213] Diagnosis: ACP (advance care planning)[SNOMED: 661478401] Diagnosis: Anxiety[SNOMED: 40021231] Judith Tolbert [facility] [id number] [place] [phone] CPT-4: 65060 12/22/2024 Plan of Care Planned Activity Notes Codes Status Date Appointment: Ann Tolbert WPtel: [address] [place], [place] [phone] F/U 04/29/2025 Patient Education: Patient Medication Summary Completed 04/29/2025 Patient Education: Influenza Complet ed 04/29/2025 Appointment: Ann Tolbert WPtel: [phone] [place] F/U 03/30/2025 Patient Education: Patient Medication Summary Completed 03/30/2025 Patient Education: Influenza Complet ed 03/30/2025 Appointment: Ann Tolbert WPtel: [phone] [place] F/U 03/04/2025 Patient Education: Patient Medication Summary Completed 03/04/2025 Patient Education: Influenza Complet ed 03/04/2025 Patient Education: Patient Medication Summary Completed 02/18/2025 Care Plan: Comprehensive Metabolic Panel Pending 02/18/2025 Appointment: Ann Tolbert WPtel: [phone] AWV 02/04/2025 Patient Education: Patient Medication Summary Completed 02/04/2025 Patient Education: Influenza Complet ed 02/04/2025 Patient Education: Addiction and Substance Abuse Completed 02/04/2025 Patient Education: Exercise and Fitness Completed 02/04/2025 Patient Education: Fall Prevention C ompleted 02/04/2025 Appointment: Ann Tolbert WPtel: [phone] F/U 01/07/2025 Patient Education: Patient Medication Summary Completed 01/07/2025 Patient Education: Influenza Complet ed 01/07/2025 Appointment: Ann Tolbert WPtel: [phone] BERRY PICKER MACHINE OPERATOR 12/22/2024 Patient Education: Patient Medication Summary Completed 12/22/2024 Patient Education: Influenza Complet ed 12/22/2024 Care Plan: Basic Metabolic Panel Pen ding 12/22/2024 Instructions Comment Date Alysa resides at [facility]. Previously lived in [facility] in [place], [place]. from first , second of 30 years . Has 4 sons, Pedro .PMH: History of breast cancer (2013), Parkinsons disease, lumbar spinal stenosis, essential tremor, HTN, osteoarthritis of right shoulder, allergic rhinitisPrimary contact: Eric Fuentes (son/POA)Code Status: DNR/SelectLab Schedule: Specialists: Neurology ([place]) 02/02/2025 Acute cough RSV positive last month. Quarantined in her apartment with supportive measures. She states she is feeling much better. Continues to have some nasal drainage which is chronic for her. Her room is 62 degrees and maintenance is aware. Anxiety Having ongoing stress surrounding her progression of cognitive and physical degeneration. She is part of a parkinsons support group. We did discuss ACP therapy through [facility] which she is somewhat interested in. Continue on fluoxetine 40mg daily and gabapentin prn. She states she takes the gabapentin almost daily and it really helps with her anxiety. Constipation, unspecified constipation type Recommended docusate sodium last month. Patient states bowels have been more stable and denies abdominal pain or cramping. She is having more fecal incontinence without awareness. This is most likely from her progressive Parkinsons status. Discussed with family that patient would benefit from increased assistance from AL staff surrounding bathroom/toileting cares. Patient in agreement. Spinal stenosis, lumbar region, without neurogenic claudication Continues with back pain which is frustrating for her. She has a stable routine of walking and exercise daily. She likes to stay active and is able to sleep through the night.. 04/29/2025 Constipation, unspecified co nstipation type Having straining with small ujlianne that are hard to pass. She is taking metamucil 4 times daily (suggested by a GI specialist last year according to her [id number]). Recommended docusate sodium prn or every other day for constipation. Family will obtain this OTC for patient. Parkinson's disease, unspecified whether dyskinesia present, unspecified whether manifestations fluctuate Unfortunately had another fall shortly after the last [place] visit. She fell out of a chair and hit her face on the floor causing bruising to her left eye. Bruising is healing routinely and she denies other injuries. We discussed compression wraps and abdominal binder for orthostasis although she declines this idea. Family states her neurologist sent orders to the facility for orthostatic vital signs daily and to send results to his office. Encouraged family to inquire with nursing regarding this since it's an outside provider. Loose stools No further fecal incontinence episodes. Her neurologist felt she could have infectious diarrhea and stool sample/culture orders were placed by [facility]. Unfortunately, she couldn't leave nursing a sample and they discontinued the order. She has not had further episodes of fecal incontinence at this time. Acute cough Started a few days ago and has since improved. Reports some congestion when laying down with slight cough and nasal congestion. Vitals stable and lungs CTA on exam. Encouraged fluids and conservative measures at this time.. 03/30/2025 Altered mental status, unspe cified altered mental status type Reviewed her general labs and urine sample results which are all unrevealing for underlying cause of brain fog. Discussed progression of Parkinsons disease and how patients can have really good days with minimal symptoms and then poor days with several symptoms/changes. Serial cognitive exams are not indicated given known fluctuation of chronic disease and non-diagnostic results. Parkinson's disease, unspecified whether dyskinesia present, unspecified whether manifestations fluctuate Discussed progression of chronic disease at length. She has not had a [place] 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 Advised patient not to change positions quickly given her autonomic dysfunction secondary to her Parkinsons disease. She has good days and bad days. Follows with a neurologist once a year. Continue to monitor in AL setting. Bilateral irreducible inguinal hernias Denies pain or discomfort. Diagnosed around 1 year ago. She is concerned these contribute to her irregular stools. Reassured they're benign and it's moreso her Parkinsons management that contributes to her stool pattern. MCI (mild cognitive impairment) Secondary to her Parkinsons. Continues on donepezil 5mg QHS. She does take fluoxetine for anxiety and has prn gabapentin as well. Counseled patient not to mix gabapentin with alcohol given high fall risk and AMS. Loose stools Has increased loose stools, had some fecal incontinence in the recent past. Family bought her some fiber to trial, she has taken this in the past which was helpful.. 03/04/2025 Advance Care Planning POLST reviewed; DNR/Select Allergic rhinitis due to other allergen Previously seen by ENT, have discussed air purifier with family in the recent past. Primary osteoarthritis, right shoulder Denies right shoulder pain on exam. Pain 2/10 in back. Female stress incontinence She utilizes incontinence products for leakage. Denies dysuria or hematuria. Parkinson's disease, unspecified whether dyskinesia present, unspecified whether manifestations fluctuate Had a recent fall with head strike and was seen in ER. Head CT negative. Continues working with PT/OT for overall functional status. She states it's going okay. Uses walker outside her apartment and remains very active around the facility. Essential (primary) hypertension BP 138/74, stable. Managed on losartan 100mg QD which is appropriate to continue at this time. Avoid hypotension in frail elderly who remain high fall risk. Essential tremor Accompanied by Parkinsons disease. Mild tremor of upper extremities on exam. Frailty Due to age, bmi, poor cognition and multiple chronic illnesses. Prevent Health Care Vaccination history reviewed and patient is due for vaccine(s) as outlined in the History/Preventative Care section above. This patient has advanced illness and frailty, and routine preventive screening tests are not aligned with their/their POA's goals of care. Spinal stenosis, lumbar region, without neurogenic claudication Woke up with back stiffness that improves when she gets up and moves around. This is not new for her. She feels it has slightly worsened since her fall although does not want further intervention at this time. Pain does not keep her up at night. MCI (mild cognitive impairment) SLUMS , managed on donepezil 5mg QHS. Anxiety She states she's anxious about falling, denies depression with PCP today although had a positive PHQ-9 result. Questions she answered yes to are regarding sleep and energy levels throughout the day, which is moreso related to her Parkinsons and chronic back pain and not depression. Continue on fluoxetine 40mg daily.. 02/04/2025 Spinal stenosis, lumbar tylor on, without neurogenic [...] present, unspecified whether manifestations fluctuate Follows with [place] [facility] Q6[facility], next f/u is next week according to family. Uses walker as gait aid. Has not fallen in months according to patient. Takes 3 Sinemet QID and she feels when the medication wears off. Anxiety Feels her anxiety is generally well controlled on current medication. She hasn't had much of an appetite since she moved to [place].. 12/22/2024
--- OUTSIDE RECORDS SUMMARY | 2025-05-13 07:50 | XMS_ITS | CCD ---
Author Name Tj Mayo Address [address] [facility] [address] [place] [address] Phone Organization [facility] Phone Care Team Providers Care Machine Umbrella Tipper Name Role Phone Judith Mayo Primary Care Provider Un available Unavailable Chronic Care Management Unavaila ble Summary Purpose DataExchange Insurance Providers Payer name Policy type / Coverage type Covered constitution party ID Effective Begin Date Effective End Date [place] H[place] Medicare Risk [id number] Unknown Un known Family history Runs in the family Diagnosis Age At Onset No Known Diseases N/A Social History Social History Element Codes Description Effec tive Dates Marital status Unknown Single 02/04/2025 Living arrangements Unknown Assisted Living 02/[address]: 942479531 Never smoker 05/[address]: 776144413 No Alcohol Consum ption 02/04/2025 Sexually Active? [...] Assisted Living 12/[address]: 078888157 Never smoker 12/[address]: 346025509 No Alcohol Consum ption 12/21/2024 Children Unknown Has Children 12/21/2024 Caregiver Assessment Unknown No [facility] re POA on file 12/21/2024 Allergies, Adverse Reactions, Alerts Substance Reaction Codes Entered Date Inactivated Date Status Morphine Unknown 12/10/2024 No Inactive Date Ac tive Problems Condition Codes Effective Dates Condition St atus Adult general medical examination SNOMED CT: 108654609 ICD-10: Z00.00 ICD-9: V70.9 02/04/2025 Active Advance care planning SNOMED CT: 3114867 01 ICD-10: Z71.89 ICD-9: V65.49 02/04/2025 Active Allergic rhinitis due to other allergen ICD-10: J30.89 ICD-9: 477.8 02/04/2025 Active Anxiety ICD-10: F41.9 ICD-9: 300.00 02/04/2025 Active Essential (primary) hypertension ICD-10: I10 ICD-9: 401.9 02/04/2025 Active Essential tremor ICD-10: G25.0 ICD-9: 333.1 02/04/2025 Active Female stress incontinence ICD-10: N39.3 ICD-9: 625.6 02/04/[address]: 462697549 ICD-10: R54 ICD-9: 797 02/04/2025 Active MCI (mild cognitive impairment) ICD-10: G31.84 ICD-9: 331.83 02/04/2025 Active Parkinson's disease, unspecified whether dyskinesia present, unspecified whether manifestations fluctuate ICD-10: G20.A1 ICD-9: 332.0 02/04/2025 Active Primary osteoarthritis, right shoulder ICD-10: M19.011 ICD-9: 715.11 02/04/2025 Active Spinal stenosis, lumbar region, without neurogenic claudication ICD-10: M48.061 ICD-9: 724.02 02/04/2025 Active Advanced care planning - to document end of life discussions Unknown 12/22/2024 Active History of ductal carcinoma in situ of breast SNOMED CT: 22581794408425 ICD-10: Z86.000 ICD-9: V13.89 12/22/2024 Active Medications Medication Codes Instructions Start Date Stop Date Status Fill Instructions fluoxetine 40 mg capsule RxNorm: 809038 Take 1 Capsule(s) Oral QD 01/20/202 5 No Stop Date Active gabapentin 100 mg capsule RxNorm: 851804 Take 1 Capsule(s) Oral QD as needed 5 No Stop Date Active loperamide 2 mg capsule RxNorm: 897750 Take 2 Capsule(s) Oral take 2 caps po at onset of diarrhea, and may take 1 cap po fpr each loose stool thereafter. PRN max of 4 caps/24 hours PRN 5 04/22/20 25 Inactive ibuprofen 200 mg tablet RxNorm: 227153 Take 3 Tablet(s) Oral every 6 hours as needed 5 No Stop Date Active Aspercreme (lidocaine HCl) 4 % topical liquid roll-on RxNorm: 5632117 liquid roll-on Topical apply topically to lower back BID and may apply BID PRN 5 No Stop Date Active acetaminophen 500 mg tablet RxNorm: 810011 Take 2 Tablet(s) Oral every 6 hours as needed 5 04/22/20 25 Inactive Vitamin B-12 1,000 mcg tablet RxNorm: 179645 Take 1 Tablet(s) Oral QD 5 04/22/20 25 Inactive losartan 100 mg tablet RxNorm: 616510 Take 1 Tablet(s) Oral QD 5 No Stop Date Active carbidopa 25 mg-levodopa 100 mg tablet RxNorm: 105115 Take 3 Tablet(s) Oral QID 5 03/11/20 25 Inactive carbidopa ER 25 mg-levodopa 100 mg tablet,extended release RxNorm: 075043 Take 1 Tablet(s) Oral QHS every night at bedtime 5 No Stop Date Active donepezil 5 mg tablet RxNorm: 589812 Take 1 Tablet(s) Oral QHS every night at bedtime 5 No Stop Date Active Antacid 200 mg (as calcium carbonate 500 mg) chewable tablet RxNorm: 535551 Take 1 QD 5 04/05/20 25 Inactive Medication Administered No Medication Administered data [...] 12/17/1986 Procedures Procedure Codes Date SYST BP GE 130 - 139MM HG CPT-4: 3075F 2024 DIAST BP <80 MM HG CPT-4: 3078F 02/04/2025 POS CLIN DEPRES SCRN F/U DOC SNOMED CT: 08933116 CPT-4: G8431 02/04/2025 Vital Signs Date Vital 02/04/2025 Blood Pressure 1: 138/74 Code: 8480-6 BMI: NaN Code: 55621-5 Heart Rate 1: 81 bpm Code: 8867-4 Respiratory Rate: 18 bpm Temperature: 37.1 (C) / 98.7 (F) Weight: 133 lbs 6 oz Code: 3141-9 Functional Status Functional / Cognitive [...] Encounter Performer Location Location Address Codes Date (G0439) Medicare Annual Wellness Visit- Subsequent Diagnosis: Adult general medical examination[SNOMED: 251796254] Diagnosis: Advance care planning[SNOMED: 198746566] Diagnosis: Frailty[SNOMED: 621248967] Diagnosis: Allergic rhinitis due to other allergen[ICD10: J30.89] Diagnosis: Essential (primary) hypertension[ICD10: I10] Diagnosis: Essential tremor[ICD10: G25.0] Diagnosis: Female stress incontinence[ICD10: N39.3] Diagnosis: MCI (mild cognitive impairment)[ICD10: G31.84] Diagnosis: Parkinson's disease, unspecified whether dyskinesia present, unspecified whether manifestations fluctuate[ICD10: G20.A1] Diagnosis: Primary osteoarthritis, right shoulder[ICD10: M19.011] Diagnosis: Spinal stenosis, lumbar region, without neurogenic claudication[ICD10: M48.061] Diagnosis: Anxiety[ICD10: F41.9] Judith Tolbert [address] [address] CPT-4: G0439 02/04/2025 Plan of Care Planned Activity Notes Codes Status Date Patient Education: Patient Medication Summary Completed 02/04/2025 Patient Education: Influenza Complet ed 02/04/2025 Patient Education: Addiction and Substance Abuse Completed 02/04/2025 Patient Education: Exercise and Fitness Completed 02/04/2025 Patient Education: Fall Prevention C ompleted 02/04/2025 Appointment: Ann Tolbert WPtel: [phone] F/U 01/07/2025 Appointment: Ann Tolbert WPtel: [address] V[employer]IN[employer] 12/22/2024 Instructions Comment Date Alysa resides at [facility]. Previously lived in [facility] in [place], [place]. from first , second of 30 years . Has 4 sons, Pedro .PMH: History of breast cancer (2013), Parkinsons disease, lumbar spinal stenosis, essential tremor, HTN, osteoarthritis of right shoulder, allergic rhinitisPrimary contact: Eric Fuentes (son/POA)Code Status: DNR/SelectLab Schedule: Specialists: Neurology ([facility]) 02/02/2025 Advance Care Planning POLST reviewed; DNR/Select Allergic [...]
--- OUTSIDE RECORDS SUMMARY | 2025-05-13 07:50 | XMS_ITS | CCD ---
Author Name Tj Mayo Address [address] [facility] [address] [place] [address] Phone Organization [facility] Phone Care Team Providers Care Healthcare Customer Service Name Role Phone Judith Mayo Primary Care Provider Un available Unavailable Chronic Care Management Unavaila ble Summary Purpose DataExchange Insurance Providers Payer name Policy type / Coverage type Covered alliance party ID Effective Begin Date Effective End Date [place] HMO Medicare Risk [id number] Unknown Un known Family history Runs in the family Diagnosis Age At Onset No Known Diseases N/A Social History Social History Element Codes Description Effec tive Dates Marital status Unknown Single 02/04/2025 Living arrangements Unknown Assisted Living 02/[address]: 794941027 Never smoker 05/[address]: 732779680 No Alcohol Consum ption 02/04/2025 Sexually Active? [...] Assisted Living 12/[address]: 645986449 Never smoker 12/[address]: 529519943 No Alcohol Consum ption 12/21/2024 Children Unknown Has Children 12/21/2024 Caregiver Assessment Unknown No [facility] re POA on file 12/21/2024 Allergies, Adverse Reactions, Alerts Substance Reaction Codes Entered Date Inactivated Date Status Morphine Unknown 12/10/2024 No Inactive Date Ac tive Problems Condition Codes Effective Dates Condition St atus Acute cough SNOMED CT: 444642568203469174 ICD-10: R05.1 ICD-9: 786.2 03/30/2025 Active Constipation, unspecified constipation type SNOMED CT: 14993054 ICD-10: K59.00 ICD-9: 564.00 03/30/2025 Active Loose stools ICD-10: R19.5 ICD-9: 787.7 03/30/2025 Active Parkinson's disease, unspecified whether dyskinesia present, unspecified whether manifestations fluctuate ICD-10: G20.A1 ICD-9: 332.0 03/30/2025 Active Altered mental status, unspecified altered mental status type ICD-10: R41.82 ICD-9: 780.97 03/04/2025 Active Bilateral irreducible inguinal hernias SNOMED CT: 078997703 ICD-10: K40.00 ICD-9: 550.92 03/04/2025 Active MCI (mild cognitive impairment) ICD-10: G31.84 ICD-9: 331.83 03/04/2025 Active Essential (primary) hypertension SNOMED CT: 52823675 ICD-10: I10 ICD-9: 401.9 02/18/2025 Active Vitamin B12 deficiency (dietary) anemia SNOMED CT: 48979678 ICD-10: D51.8 ICD-9: 281.1 02/18/2025 Active Adult general medical examination SNOMED CT: 467370602 ICD-10: Z00.00 ICD-9: V70.9 02/04/2025 Active Advance care planning SNOMED CT: 1443761 01 ICD-10: Z71.89 ICD-9: V65.49 02/04/2025 Active Allergic rhinitis due to other allergen ICD-10: J30.89 ICD-9: 477.8 02/04/2025 Active Anxiety ICD-10: F41.9 ICD-9: 300.00 02/04/2025 Active Essential tremor ICD-10: G25.0 ICD-9: 333.1 02/04/2025 Active Female stress incontinence ICD-10: N39.3 ICD-9: 625.6 02/04/[address]: 806301907 ICD-10: R54 ICD-9: 797 02/04/2025 Active Primary osteoarthritis, right shoulder ICD-10: M19.011 ICD-9: 715.11 02/04/2025 Active Spinal stenosis, lumbar region, without neurogenic claudication ICD-10: M48.061 ICD-9: 724.02 02/04/2025 Active Advanced care planning - to document end of life discussions Unknown 12/22/2024 Active History of ductal carcinoma in situ of breast SNOMED CT: 17312922691769 ICD-10: Z86.000 ICD-9: V13.89 12/22/2024 Active Medications Medication Codes Instructions Start Date Stop Date Status Fill Instructions carbidopa 25 mg-levodopa 100 mg tablet RxNorm: 378138 Take 3 Tablet(s) Oral QID at 7:30, 11:00, 2:30 and 6:30, then take 1 tab up to twice in the evening between 12am and 5am PRN for breakthrough tremors 5 No Stop Date Active lidocaine 4 % topical patch RxNorm: 5900556 Apply 1 adhesive patch,medicated Topical QD as needed on for 12 hours, off for 12 hours 5 No Stop Date Active Vitafusion Women's Multi 120 mcg chewable tablet RxNorm: Take 1 Tablet(s) Oral QD 5 No Stop Date Active fluoxetine 40 mg capsule RxNorm: 884135 Take 1 Capsule(s) Oral QD 5 No Stop Date Active gabapentin 100 mg capsule RxNorm: 521152 Take 1 Capsule(s) Oral QD as needed 5 No Stop Date Active loperamide 2 mg capsule RxNorm: 006880 Take 2 Capsule(s) Oral take 2 caps po at onset of diarrhea, and may take 1 cap po fpr each loose stool thereafter. PRN max of 4 caps/24 hours PRN 5 04/22/20 25 Inactive ibuprofen 200 mg tablet RxNorm: 047387 Take 3 Tablet(s) Oral every 6 hours as needed 5 No Stop Date Active Aspercreme (lidocaine HCl) 4 % topical liquid roll-on RxNorm: 7879392 liquid roll-on Topical apply topically to lower back BID and may apply BID PRN 5 No Stop Date Active acetaminophen 500 mg tablet RxNorm: 617529 Take 2 Tablet(s) Oral every 6 hours as needed 5 04/22/20 25 Inactive Vitamin B-12 1,000 mcg tablet RxNorm: 237369 Take 1 Tablet(s) Oral QD 5 04/22/20 25 Inactive losartan 100 mg tablet RxNorm: 037155 Take 1 Tablet(s) Oral QD 5 No Stop Date Active carbidopa ER 25 mg-levodopa 100 mg tablet,extended release RxNorm: 244702 Take 1 Tablet(s) Oral QHS every night at bedtime 5 No Stop Date Active donepezil 5 mg tablet RxNorm: 105283 Take 1 Tablet(s) Oral QHS every night at bedtime 5 No Stop Date Active Antacid 200 mg (as calcium carbonate 500 mg) chewable tablet RxNorm: 212467 Take 1 QD 5 04/05/20 25 Inactive carbidopa 25 mg-levodopa 100 mg tablet RxNorm: 280903 Take 3 Tablet(s) Oral QID 5 03/11/20 25 Inactive Medication Administered No Medication Administered [...] Service Location Respiratory Syncytial Virus (RSV) Antigen [id number] RESPIRATORY SYNCYTIAL VIRUS ANTIGEN Positive 04/01/20 Unknown Functional Status Functional / Cognitive Codes Status [...] For Visit No Reason For Visit data Plan of Care Planned Activity Notes Codes Status Date Appointment: Ann Tolbert WPtel: [address] [place], [place] [phone] [place] F/U 03/30/2025 Appointment: Ann Tolbert WPtel: [address] [place], [place] [phone] [place] F/U 03/04/2025 Appointment: Ann Tolbert WPtel: [address] [place] 02/04/2025 Appointment: Ann Tolbert WPtel: [address] [place], [place] [phone] [place] F/U 01/07/2025 Appointment: Ann Tolbert WPtel: [address] 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 Previously lived in [facility] in [place], [place]. from first , second of 30 years . Has 4 sons, Pedro .PMH: History of breast cancer (2013), Parkinsons disease, lumbar spinal stenosis, essential tremor, HTN, osteoarthritis of right shoulder, allergic rhinitisPrimary contact: Eric Fuentes (son/POA)Code Status: DNR/SelectLab Schedule: Specialists: Neurology ([facility]) 02/02/2025
--- OUTSIDE RECORDS SUMMARY | 2025-05-13 07:51 | XMS_ITS | CCD ---
Author Name Tj Mayo Address [address] [facility] [address] [place] [address] Phone Organization [facility] Phone Care Team Providers Care Echo Tech Name Role Phone Judith Mayo Primary Care Provider Un available Unavailable Chronic Care Management Unavaila ble Summary Purpose DataExchange Insurance Providers Payer name Policy type / Coverage type Covered alliance party ID Effective Begin Date Effective End Date [place] H[place] Medicare Risk [id number] Unknown Un known Family history Runs in the family Diagnosis Age At Onset No Known Diseases N/A Social History Social History Element Codes Description Effec tive Dates Marital status Unknown Single 02/04/2025 Living arrangements Unknown Assisted Living 02/[address]: 925850842 Never smoker 05/[address]: 662354538 No Alcohol Consum ption 02/04/2025 Sexually Active? [...] Assisted Living 12/[address]: 026784265 Never smoker 12/[address]: 992683374 No Alcohol Consum ption 12/21/2024 Children Unknown [...] Active Bilateral irreducible inguinal hernias SNOMED CT: 666478370 ICD-10: K40.00 ICD-9: 550.92 03/04/2025 Active MCI (mild cognitive impairment) ICD-10: G31.84 ICD-9: 331.83 03/04/2025 Active Essential (primary) hypertension SNOMED CT: 65255633 ICD-10: I10 ICD-9: 401.9 02/18/2025 Active Vitamin B12 deficiency (dietary) anemia SNOMED CT: 67934335 ICD-10: D51.8 ICD-9: 281.1 02/18/2025 Active Adult general medical examination SNOMED CT: 599373848 ICD-10: Z00.00 ICD-9: V70.9 02/04/2025 Active Advance care planning SNOMED CT: 9513284 01 ICD-10: Z71.89 ICD-9: V65.49 02/04/2025 Active Allergic rhinitis due to other allergen ICD-10: J30.89 ICD-9: 477.8 02/04/2025 Active Essential tremor ICD-10: G25.0 ICD-9: 333.1 02/04/2025 Active Female stress incontinence ICD-10: N39.3 ICD-9: 625.6 02/04/[address]: 138814270 ICD-10: R54 ICD-9: 797 02/04/2025 Active Primary osteoarthritis, right shoulder ICD-10: M19.011 ICD-9: 715.11 02/04/2025 Active Advanced care planning - to document end of life discussions Unknown 12/22/2024 Active History of ductal carcinoma in situ of breast SNOMED CT: 67804130760734 ICD-10: Z86.000 ICD-9: V13.89 12/22/2024 Active Medications Medication Codes Instructions Start Date Stop Date Status Fill Instructions docusate sodium 100 mg capsule RxNorm: 7073072 Take 1 Capsule(s) Oral BID 5 Active acetaminophen 500 mg tablet RxNorm: 675590 Take 1 Tablet(s) Oral QID as needed 5 No Stop Date Active loperamide 2 mg capsule RxNorm: 424064 Take 2 Capsule(s) Oral QD as needed 5 No Stop Date Active cyanocobalamin (vit B-12) 1,000 mcg sublingual lozenge RxNorm: 409427 1 TABLET ORALLY DAILY (DX: SUPPLEMENT) 5 Active PLEASE SEND REFILLS.PHARMAC Y PLEASE PROFILE FOR FUTURE USE-[facility] Calcium Antacid 200 mg (as calcium carbonate 500 mg) chewable tablet RxNorm: 647134 CHEW & SWALLOW 1 TABLET ORALLY DAILY (DX: SUPPLEMENT) 5 Active PLEASE SEND REFILLS.PHARMAC Y PLEASE PROFILE FOR FUTURE USE-[facility] carbidopa 25 mg-levodopa 100 mg tablet RxNorm: 371463 Take 3 Tablet(s) Oral QID at 7:30, 11:00, 2:30 and 6:30, then take 1 tab up to twice in the evening between 12am and 5am PRN for breakthrough tremors 5 No Stop Date Active lidocaine 4 % topical patch RxNorm: 9162308 Apply 1 adhesive patch,medicated Topical QD as needed on for 12 hours, off for 12 hours 5 No Stop Date Active Vitafusion Women's Multi 120 mcg chewable tablet RxNorm: Take 1 Tablet(s) Oral QD 5 No Stop Date Active fluoxetine 40 mg capsule RxNorm: 510080 Take 1 Capsule(s) Oral QD 5 No Stop Date Active gabapentin 100 mg capsule RxNorm: 487403 Take 1 Capsule(s) Oral QD as needed 5 No Stop Date Active ibuprofen 200 mg tablet RxNorm: 057836 Take 3 Tablet(s) Oral every 6 hours as needed 5 No Stop Date Active Aspercreme (lidocaine HCl) 4 % topical liquid roll-on RxNorm: 7508919 liquid roll-on Topical apply topically to lower back BID and may apply BID PRN 5 No Stop Date Active losartan 100 mg tablet RxNorm: 362318 Take 1 Tablet(s) Oral QD 5 No Stop Date Active carbidopa ER 25 mg-levodopa 100 mg tablet,extended release RxNorm: 751362 Take 1 Tablet(s) Oral QHS every night at bedtime 5 No Stop Date Active donepezil 5 mg tablet RxNorm: 422996 Take 1 Tablet(s) Oral QHS every night at bedtime 5 No Stop Date Active loperamide 2 mg capsule RxNorm: 887631 Take 2 Capsule(s) Oral take 2 caps po at onset of diarrhea, and may take 1 cap po fpr each loose stool thereafter. PRN max of 4 caps/24 hours PRN 5 025 Inactive acetaminophen 500 mg tablet RxNorm: 710816 Take 2 Tablet(s) Oral every 6 hours as needed 5 025 Inactive Vitamin B-12 1,000 mcg tablet RxNorm: 700641 Take 1 Tablet(s) Oral QD 5 025 Inactive carbidopa 25 mg-levodopa 100 mg tablet RxNorm: 314121 Take 3 Tablet(s) Oral QID 5 025 Inactive Antacid 200 mg (as calcium carbonate 500 mg) chewable tablet RxNorm: 983377 Take 1 QD 01 025 Inactive Medication [...] 04/29/2025 DIAST BP <80 MM HG CPT-4: 3078F 04/29/2025 Vital Signs Date Vital 04/29/2025 Blood Pressure 1: 101/60 Code: 8480-6 Heart Rate 1: 83 bpm Code: 8867-4 Respiratory Rate: 17 bpm SpO2: 96% Temperature: 36.7 (C) / 98.1 (F) Functional Status Functional / Cognitive Codes [...] Encounter Performer Location Location Address Codes Date (53496) Home Visit - Est Pt, moderate Diagnosis: Constipation, unspecified constipation type[ICD10: K59.00] Diagnosis: Acute cough[ICD10: R05.1] Diagnosis: Spinal stenosis, lumbar region, without neurogenic claudication[ICD10: M48.061] Diagnosis: Anxiety[ICD10: F41.9] Judith Tolbert [address] [address] CPT-4: 04660 04/29/2025 Plan of Care Planned Activity Notes Codes Status Date Patient Education: Patient Medication Summary Completed 04/29/2025 Patient Education: Influenza Complet ed 04/29/2025 Appointment: Ann Tolbert WPtel: [address] F/U 03/30/2025 Appointment: Ann Tolbert WPtel: [address] [place] F/U 03/04/2025 Appointment: Ann Tolbert WPtel: [address] AWV 02/04/2025 Appointment: Ann Tolbert WPtel: [address] [place] F/U 01/07/2025 Appointment: Ann Tolbert WPtel: [address] ORTHOTIST OR PROSTHETIST 12/22/2024 Instructions Comment Date Alysa resides at [facility]. Previously lived in [facility] in [place], [place]. from first , second of 30 [...] group. We did discuss ACP therapy through [facility] which she is somewhat interested in. Continue [...]
--- OUTSIDE RECORDS SUMMARY | 2025-05-13 07:51 | XMS_ITS | CCD ---
Author Name Tj Mayo Address [address] [facility] [address] [place] [address] Phone Organization [facility] Phone Care Team Providers Care Oyster Picker Name Role Phone Judith Mayo Primary Care Provider Un available Unavailable Chronic Care Management Unavaila ble Summary Purpose DataExchange Insurance Providers Payer name Policy type / Coverage type Covered alliance party ID Effective Begin Date Effective End Date [place] H[place] Medicare Risk [id number] Unknown Un known Family history Runs in the family Diagnosis Age At Onset No Known Diseases N/A Social History Social History Element Codes Description Effec tive Dates Marital status Unknown Single 02/04/2025 Living arrangements Unknown Assisted Living 02/[address]: 949863224 Never smoker 05/[address]: 128903305 No Alcohol Consum ption 02/04/2025 Sexually Active? [...] Assisted Living 12/[address]: 380479657 Never smoker 12/[address]: 431268260 No Alcohol Consum ption 12/21/2024 Children Unknown Has Children 12/21/2024 Caregiver Assessment Unknown No health[facility] re POA on file 12/21/2024 Allergies, Adverse Reactions, Alerts Substance Reaction Codes Entered Date Inactivated Date Status Morphine Unknown 12/10/2024 No Inactive Date Ac tive Problems Condition Codes Effective Dates Condition St atus Acute cough SNOMED CT: 926758040692068829 ICD-10: R05.1 ICD-9: 786.2 03/30/2025 Active Constipation, unspecified constipation type SNOMED CT: 18960963 ICD-10: K59.00 ICD-9: 564.00 03/30/2025 Active Loose stools ICD-10: R19.5 ICD-9: 787.7 03/30/2025 Active Parkinson's disease, unspecified whether dyskinesia present, unspecified whether manifestations fluctuate ICD-10: G20.A1 ICD-9: 332.0 03/30/2025 Active Altered mental status, unspecified altered mental status type ICD-10: R41.82 ICD-9: 780.97 03/04/2025 Active Bilateral irreducible inguinal hernias SNOMED CT: 191488109 ICD-10: K40.00 ICD-9: 550.92 03/04/2025 Active MCI (mild cognitive impairment) ICD-10: G31.84 ICD-9: 331.83 03/04/2025 Active Essential (primary) hypertension SNOMED CT: 25259699 ICD-10: I10 ICD-9: 401.9 02/18/2025 Active Vitamin B12 deficiency (dietary) anemia SNOMED CT: 39556632 ICD-10: D51.8 ICD-9: 281.1 02/18/2025 Active Adult general medical examination SNOMED CT: 155783400 ICD-10: Z00.00 ICD-9: V70.9 02/04/2025 Active Advance care planning SNOMED CT: 5761737 01 ICD-10: Z71.89 ICD-9: V65.49 02/04/2025 Active Allergic rhinitis due to other allergen ICD-10: J30.89 ICD-9: 477.8 02/04/2025 Active Anxiety ICD-10: F41.9 ICD-9: 300.00 02/04/2025 Active Essential tremor ICD-10: G25.0 ICD-9: 333.1 02/04/2025 Active Female stress incontinence ICD-10: N39.3 ICD-9: 625.6 02/04/[address]: 692065748 ICD-10: R54 ICD-9: 797 02/04/2025 Active Primary osteoarthritis, right shoulder ICD-10: M19.011 ICD-9: 715.11 02/04/2025 Active Spinal stenosis, lumbar region, without neurogenic claudication ICD-10: M48.061 ICD-9: 724.02 02/04/2025 Active Advanced care planning - to document end of life discussions Unknown 12/22/2024 Active History of ductal carcinoma in situ of breast SNOMED CT: 64599891161744 ICD-10: Z86.000 ICD-9: V13.89 12/22/2024 Active Medications Medication Codes Instructions Start Date Stop Date Status Fill Instructions carbidopa 25 mg-levodopa 100 mg tablet RxNorm: 788101 Take 3 Tablet(s) Oral QID at 7:30, 11:00, 2:30 and 6:30, then take 1 tab up to twice in the evening between 12am and 5am PRN for breakthrough tremors 5 No Stop Date Active lidocaine 4 % topical patch RxNorm: 5690081 Apply 1 adhesive patch,medicated Topical QD as needed on for 12 hours, off for 12 hours 5 No Stop Date Active Vitafusion Women's Multi 120 mcg chewable tablet RxNorm: Take 1 Tablet(s) Oral QD 5 No Stop Date Active fluoxetine 40 mg capsule RxNorm: 294394 Take 1 Capsule(s) Oral QD 5 No Stop Date Active gabapentin 100 mg capsule RxNorm: 790071 Take 1 Capsule(s) Oral QD as needed 5 No Stop Date Active loperamide 2 mg capsule RxNorm: 142603 Take 2 Capsule(s) Oral take 2 caps po at onset of diarrhea, and may take 1 cap po fpr each loose stool thereafter. PRN max of 4 caps/24 hours PRN 5 04/22/20 25 Inactive ibuprofen 200 mg tablet RxNorm: 514528 Take 3 Tablet(s) Oral every 6 hours as needed 5 No Stop Date Active Aspercreme (lidocaine HCl) 4 % topical liquid roll-on RxNorm: 8467452 liquid roll-on Topical apply topically to lower back BID and may apply BID PRN 5 No Stop Date Active acetaminophen 500 mg tablet RxNorm: 352189 Take 2 Tablet(s) Oral every 6 hours as needed 5 04/22/20 25 Inactive Vitamin B-12 1,000 mcg tablet RxNorm: 688498 Take 1 Tablet(s) Oral QD 5 04/22/20 25 Inactive losartan 100 mg tablet RxNorm: 103732 Take 1 Tablet(s) Oral QD 5 No Stop Date Active carbidopa ER 25 mg-levodopa 100 mg tablet,extended release RxNorm: 048173 Take 1 Tablet(s) Oral QHS every night at bedtime 5 No Stop Date Active donepezil 5 mg tablet RxNorm: 054194 Take 1 Tablet(s) Oral QHS every night at bedtime 5 No Stop Date Active Antacid 200 mg (as calcium carbonate 500 mg) chewable tablet RxNorm: 554341 Take 1 QD 5 04/05/20 25 Inactive carbidopa 25 mg-levodopa 100 mg tablet RxNorm: 670883 Take 3 Tablet(s) Oral QID 5 03/11/20 [...] BP LT 130 MM HG CPT-4: 3074F 03/30/2025 DIAST BP 80-89 MM HG CPT-4: 3079F 03/30/2025 Vital Signs Date Vital 03/30/2025 Blood Pressure 1: 117/80 Code: 8480-6 Heart Rate 1: 83 bpm Code: 8867-4 Respiratory Rate: 16 bpm SpO2: 97% Temperature: 36.8 (C) / 98.3 (F) Functional Status Functional / Cognitive Codes [...] Encounter Performer Location Location Address Codes Date (44593) Home Visit - Est Pt, moderate Diagnosis: Constipation, unspecified constipation type[SNOMED: 99689143] Diagnosis: Loose stools[ICD10: R19.5] Diagnosis: Parkinson's disease, unspecified whether dyskinesia present, unspecified whether manifestations fluctuate[ICD10: G20.A1] Diagnosis: Acute cough[SNOMED: 600660190157776949] Judithermias Tolbert [facility] [address] [place] [id number] CPT-4: 38890 03/30/2025 Plan of Care Planned Activity Notes Codes Status Date Patient Education: Patient Medication Summary Completed 03/30/2025 Patient Education: Influenza Complet ed 03/30/2025 Appointment: Ann Tolbert WPtel: [phone] [place] F/U 03/04/2025 Appointment: Ann Tolbert WPtel: [phone] [place] AWV 02/04/2025 Appointment: Ann Tolbert WPtel: [phone] [place] 01/07/2025 Appointment: Ann Tolbert WPtel: [phone] [place] BABY DOCTOR 12/22/2024 Instructions Comment Date Alysa resides at [facility]. Previously lived in pending sale to [facility] in [place], [place]. from first , second of 30 years . Has 4 sons, Pedro .PMH: History of breast cancer (2013), Parkinsons disease, lumbar spinal stenosis, essential tremor, HTN, osteoarthritis of right shoulder, allergic rhinitisPrimary contact: Eric Itzelfroylanlupe (son/POA)Code Status: DNR/SelectLab Schedule: Specialists: Neurology ([facility]) 02/02/2025 Constipation, unspecified co nstipation type Having straining with small julianne that are hard to pass. She is taking metamucil 4 times daily (suggested by a GI specialist last year according to her [id number]). Recommended docusate sodium prn or every other day for constipation. Family will obtain this OTC for patient. Parkinson's disease, unspecified whether dyskinesia present, unspecified whether manifestations fluctuate Unfortunately had another fall shortly after the last [facility] visit. She fell out of a chair [...]
--- OUTSIDE RECORDS SUMMARY | 2025-05-13 07:51 | XMS_ITS | CCD ---
Author Name Tj Mayo Address [address] [facility] [address] [place] [address] Phone Organization [facility] Phone Care Team Providers Care Service Crew Leader Name Role Phone Judith Mayo Primary Care Provider Un available Unavailable Chronic Care Management Unavaila ble Summary Purpose DataExchange Insurance Providers Payer name Policy type / Coverage type Covered green party ID Effective Begin Date Effective End Date [place] Medicare Risk [id number] Unknown Un known Family history Runs in the family Diagnosis Age At Onset No Known Diseases N/A Social History Social History Element Codes Description Effec tive Dates Marital status Unknown Single 02/04/2025 Living arrangements Unknown Assisted Living 02/[address]: 333447960 Never smoker 05/[address]: 848219522 No Alcohol Consum ption 02/04/2025 Sexually Active? [...] Assisted Living 12/[address]: 125516869 Never smoker 12/[address]: 660554718 No Alcohol Consum ption 12/21/2024 Children Unknown Has Children 12/21/2024 Caregiver Assessment Unknown No health[facility] re POA on file 12/21/2024 Allergies, Adverse Reactions, Alerts Substance Reaction Codes Entered Date Inactivated Date Status Morphine Unknown 12/10/2024 No Inactive Date Ac tive Problems Condition Codes Effective Dates Condition St atus Altered mental status, unspecified altered mental status type ICD-10: R41.82 ICD-9: 780.97 03/04/2025 Active Bilateral irreducible inguinal hernias SNOMED CT: 356662858 ICD-10: K40.00 ICD-9: 550.92 03/04/2025 Active Loose stools SNOMED CT: 763200486 ICD-10: R19.5 ICD-9: 787.7 03/04/2025 Active MCI (mild cognitive impairment) ICD-10: G31.84 ICD-9: 331.83 03/04/2025 Active Parkinson's disease, unspecified whether dyskinesia present, unspecified whether manifestations fluctuate ICD-10: G20.A1 ICD-9: 332.0 03/04/2025 Active Essential (primary) hypertension SNOMED CT: 55306634 ICD-10: I10 ICD-9: 401.9 02/18/2025 Active Vitamin B12 deficiency (dietary) anemia SNOMED CT: 45030840 ICD-10: D51.8 ICD-9: 281.1 02/18/2025 Active Adult general medical examination SNOMED CT: 495819363 ICD-10: Z00.00 ICD-9: V70.9 02/04/2025 Active Advance care planning SNOMED CT: 0654363 01 ICD-10: Z71.89 ICD-9: V65.49 02/04/2025 Active Allergic rhinitis due to other allergen ICD-10: J30.89 ICD-9: 477.8 02/04/2025 Active Anxiety ICD-10: F41.9 ICD-9: 300.00 02/04/2025 Active Essential tremor ICD-10: G25.0 ICD-9: 333.1 02/04/2025 Active Female stress incontinence ICD-10: N39.3 ICD-9: 625.6 02/04/[address]: 693986745 ICD-10: R54 ICD-9: 797 02/04/2025 Active Primary osteoarthritis, right shoulder ICD-10: M19.011 ICD-9: 715.11 02/04/2025 Active Spinal stenosis, lumbar region, without neurogenic claudication ICD-10: M48.061 ICD-9: 724.02 02/04/2025 Active Advanced care planning - to document end of life discussions Unknown 12/22/2024 Active History of ductal carcinoma in situ of breast SNOMED CT: 46862981533479 ICD-10: Z86.000 ICD-9: V13.89 12/22/2024 Active Medications Medication Codes Instructions Start Date Stop Date Status Fill Instructions lidocaine 4 % topical patch RxNorm: 7015194 Apply 1 adhesive patch,medicated Topical QD as needed on for 12 hours, off for 12 hours 5 No Stop Date Active Vitafusion Women's Multi 120 mcg chewable tablet RxNorm: Take 1 Tablet(s) Oral QD 5 No Stop Date Active fluoxetine 40 mg capsule RxNorm: 101359 Take 1 Capsule(s) Oral QD 5 No Stop Date Active gabapentin 100 mg capsule RxNorm: 251549 Take 1 Capsule(s) Oral QD as needed 5 No Stop Date Active loperamide 2 mg capsule RxNorm: 068934 Take 2 Capsule(s) Oral take 2 caps po at onset of diarrhea, and may take 1 cap po fpr each loose stool thereafter. PRN max of 4 caps/24 hours PRN 5 04/22/20 25 Inactive ibuprofen 200 mg tablet RxNorm: 178552 Take 3 Tablet(s) Oral every 6 hours as needed 5 No Stop Date Active Aspercreme (lidocaine HCl) 4 % topical liquid roll-on RxNorm: 0757230 liquid roll-on Topical apply topically to lower back BID and may apply BID PRN 5 No Stop Date Active acetaminophen 500 mg tablet RxNorm: 169815 Take 2 Tablet(s) Oral every 6 hours as needed 5 04/22/20 25 Inactive Vitamin B-12 1,000 mcg tablet RxNorm: 290740 Take 1 Tablet(s) Oral QD 5 04/22/20 25 Inactive losartan 100 mg tablet RxNorm: 774348 Take 1 Tablet(s) Oral QD 5 No Stop Date Active carbidopa 25 mg-levodopa 100 mg tablet RxNorm: 010742 Take 3 Tablet(s) Oral QID 5 03/11/20 25 Inactive carbidopa ER 25 mg-levodopa 100 mg tablet,extended release RxNorm: 394353 Take 1 Tablet(s) Oral QHS every night at bedtime 5 No Stop Date Active donepezil 5 mg tablet RxNorm: 055377 Take 1 Tablet(s) Oral QHS every night at bedtime 5 No Stop Date Active Antacid 200 mg (as calcium carbonate 500 mg) chewable tablet RxNorm: 747269 Take 1 QD 5 04/05/20 25 Inactive [...] 12/17[birth year]1986 Procedures Procedure Codes Date SYST BP >/= 140 MM HG CPT-4: 3077F 03/04/2025 DIAST BP >/= 90 MM HG CPT-4: 3080F 03/04/2025 Vital Signs Date Vital 03/04/2025 Blood Pressure 1: 140/90 Code: 8480-6 Heart Rate 1: 88 bpm Code: 8867-4 Respiratory Rate: 16 bpm SpO2: 97% Temperature: 36.9 (C) / 98.4 (F) Functional Status Functional / Cognitive Codes [...] Encounter Performer Location Location Address Codes Date ([address]280) Home Visit - Est Pt, moderate Diagnosis: Loose stools[SNOMED: 510275662] Diagnosis: Altered mental status, unspecified altered mental status type[ICD10: R41.82] Diagnosis: Parkinson's disease, unspecified whether dyskinesia present, unspecified whether manifestations fluctuate[ICD10: G20.A1] Diagnosis: MCI (mild cognitive impairment)[ICD10: G31.84] Diagnosis: Bilateral irreducible inguinal hernias[SNOMED: 786946978] Judith Tolbert [address] [address] CPT-4: 56572 03/04/2025 Plan of Care Planned Activity Notes Codes Status Date Patient Education: Patient Medication Summary Completed 03/04/2025 Patient Education: Influenza Complet ed 03/04/2025 Appointment: Ann Tolbert WPtel: [phone] AWV 02/04/2025 Appointment: Ann Tolbert WPtel: [phone] [place] F/U 01/07/2025 Appointment: Ann Tolbert WPtel: [address] [place], [place] [address] [place] 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 Previously lived in [facility] in [place], [place]. from first , second of 30 years . Has 4 sons, Pedro .PMH: History of breast cancer (2013), Parkinsons disease, lumbar spinal stenosis, essential tremor, HTN, osteoarthritis of right shoulder, allergic rhinitisPrimary contact: Eric Fuentes (son/POA)Code Status: DNR/SelectLab Schedule: Dec/JuneSpecialists: Neurology ([facility]) 02/02/2025 Altered mental status, unspe cified altered mental [...] including bending over in the hallways to pick out hand trays for other people. Advised patient not [...]
--- OUTSIDE RECORDS SUMMARY | 2025-05-13 07:52 | XMS_ITS | CCD ---
Author Organization Unknown Care Team Providers Care Glazier Stained Glass Name Role Phone Judith Mayo Primary Care Provider Un available Unavailable Chronic Care Management Unavaila ble Summary Purpose DataExchange Insurance Providers Payer name Policy type / Coverage type Covered libertarian ID Effective Begin Date Effective End Date [place] H[place] Medicare Risk [id number] Unknown Un known Family history Runs in the family Diagnosis Age At Onset No Known Diseases N/A Social History Social History Element Codes Description Effec tive Dates Marital status Unknown Single 02/04/2025 Living arrangements Unknown Assisted Living 02/[address]: 865723361 Never smoker 05/[address]: 511730948 No Alcohol Consum ption 02/04/2025 Sexually Active? [...] Assisted Living 12/[address]: 811441360 Never smoker 12/[address]: 831636724 No Alcohol Consum ption 12/21/2024 Children Unknown Has Children 12/21/2024 Caregiver Assessment Unknown No health[facility] re POA on file 12/21/2024 Allergies, Adverse Reactions, Alerts Substance Reaction Codes Entered Date Inactivated Date Status Morphine Unknown 12/10/2024 No Inactive Date Ac tive Problems Condition Codes Effective Dates Condition St atus Acute cough SNOMED CT: 314652333146882500 ICD-10: R05.1 ICD-9: 786.2 03/30/2025 Active Constipation, unspecified constipation type SNOMED CT: 01872198 ICD-10: K59.00 ICD-9: 564.00 03/30/2025 Active Loose stools ICD-10: R19.5 ICD-9: 787.7 03/30/2025 Active Parkinson's disease, unspecified whether dyskinesia present, unspecified whether manifestations fluctuate ICD-10: G20.A1 ICD-9: 332.0 03/30/2025 Active Altered mental status, unspecified altered mental status type ICD-10: R41.82 ICD-9: 780.97 03/04/2025 Active Bilateral irreducible inguinal hernias SNOMED CT: 902794198 ICD-10: K40.00 ICD-9: 550.92 03/04/2025 Active MCI (mild cognitive impairment) ICD-10: G31.84 ICD-9: 331.83 03/04/2025 Active Essential (primary) hypertension SNOMED CT: 63373431 ICD-10: I10 ICD-9: 401.9 02/18/2025 Active Vitamin B12 deficiency (dietary) anemia SNOMED CT: 07409400 ICD-10: D51.8 ICD-9: 281.1 02/18/2025 Active Adult general medical examination SNOMED CT: 784215328 ICD-10: Z00.00 ICD-9: V70.9 02/04/2025 Active Advance care planning SNOMED CT: 7237869 01 ICD-10: Z71.89 ICD-9: V65.49 02/04/2025 Active Allergic rhinitis due to other allergen ICD-10: J30.89 ICD-9: 477.8 02/04/2025 Active Anxiety ICD-10: F41.9 ICD-9: 300.00 02/04/2025 Active Essential tremor ICD-10: G25.0 ICD-9: 333.1 02/04/2025 Active Female stress incontinence ICD-10: N39.3 ICD-9: 625.6 02/04/[address]: 888836713 ICD-10: R54 ICD-9: 797 02/04/2025 Active Primary osteoarthritis, right shoulder ICD-10: M19.011 ICD-9: 715.11 02/04/2025 Active Spinal stenosis, lumbar region, without neurogenic claudication ICD-10: M48.061 ICD-9: 724.02 02/04/2025 Active Advanced care planning - to document end of life discussions Unknown 12/22/2024 Active History of ductal carcinoma in situ of breast SNOMED CT: 25478359202383 ICD-10: Z86.000 ICD-9: V13.89 12/22/2024 Active Medications Medication Codes Instructions Start Date Stop Date Status Fill Instructions cyanocobalamin (vit B-12) 1,000 mcg sublingual lozenge RxNorm: 093990 1 TABLET ORALLY DAILY (DX: SUPPLEMENT) 5 Active PLEASE SEND REFILLS.PHARMAC Y PLEASE PROFILE FOR FUTURE USE-[facility] Calcium Antacid 200 mg (as calcium carbonate 500 mg) chewable tablet RxNorm: 653488 CHEW & SWALLOW 1 TABLET ORALLY DAILY (DX: SUPPLEMENT) 5 Active PLEASE SEND REFILLS.PHARMAC Y PLEASE PROFILE FOR FUTURE USE-[facility] carbidopa 25 mg-levodopa 100 mg tablet RxNorm: 716142 Take 3 Tablet(s) Oral QID at 7:30, 11:00, 2:30 and 6:30, then take 1 tab up to twice in the evening between 12am and 5am PRN for breakthrough tremors 5 No Stop Date Active lidocaine 4 % topical patch RxNorm: 7641819 Apply 1 adhesive patch,medicated Topical QD as needed on for 12 hours, off for 12 hours 5 No Stop Date Active Vitafusion Women's Multi 120 mcg chewable tablet RxNorm: Take 1 Tablet(s) Oral QD 5 No Stop Date Active fluoxetine 40 mg capsule RxNorm: 469230 Take 1 Capsule(s) Oral QD 5 No Stop Date Active gabapentin 100 mg capsule RxNorm: 962266 Take 1 Capsule(s) Oral QD as needed 5 No Stop Date Active loperamide 2 mg capsule RxNorm: 974840 Take 2 Capsule(s) Oral take 2 caps po at onset of diarrhea, and may take 1 cap po fpr each loose stool thereafter. PRN max of 4 caps/24 hours PRN 5 025 Inactive ibuprofen 200 mg tablet RxNorm: 484717 Take 3 Tablet(s) Oral every 6 hours as needed 5 No Stop Date Active Aspercreme (lidocaine HCl) 4 % topical liquid roll-on RxNorm: 5166802 liquid roll-on Topical apply topically to lower back BID and may apply BID PRN 5 No Stop Date Active acetaminophen 500 mg tablet RxNorm: 374919 Take 2 Tablet(s) Oral every 6 hours as needed 5 025 Inactive Vitamin B-12 1,000 mcg tablet RxNorm: 131172 Take 1 Tablet(s) Oral QD 5 025 Inactive losartan 100 mg tablet RxNorm: 789947 Take 1 Tablet(s) Oral QD 5 No Stop Date Active carbidopa ER 25 mg-levodopa 100 mg tablet,extended release RxNorm: 361937 Take 1 Tablet(s) Oral QHS every night at bedtime 5 No Stop Date Active donepezil 5 mg tablet RxNorm: 105615 Take 1 Tablet(s) Oral QHS every night at bedtime 5 No Stop Date Active Antacid 200 mg (as calcium carbonate 500 mg) chewable tablet RxNorm: 929193 Take 1 QD 5 025 Inactive carbidopa 25 mg-levodopa 100 mg tablet RxNorm: 754713 Take 3 Tablet(s) Oral QID 5 025 Inactive Medication Administered No Medication Administered [...] Measles, Mumps, Rubella CVX: 03 1.0 12/17/1986 Functional Status Functional / Cognitive Codes Status [...] For Visit No Reason For Visit data Instructions Comment Date Alysa resides at [facility]. Previously lived in [facility] in [place], [place]. from first , second of 30 years . Has 4 sons, Pedro .PMH: History of breast cancer (2013), Parkinsons disease, lumbar spinal stenosis, essential tremor, HTN, osteoarthritis of right shoulder, allergic rhinitisPrimary contact: Eric Richardslupe (son/POA)Code Status: DNR/SelectLab Schedule: Specialists: Neurology ([facility]) 02/02/2025
--- OUTSIDE RECORDS SUMMARY | 2025-05-13 07:52 | XMS_ITS | CCD ---
Author Name Tj Mayo Address [address] [place] [address] Phone Organization [facility] Phone Care Team Providers Care Biosecurity Officer Name Role Phone Judith Mayo Primary Care Provider Un available Unavailable Chronic Care Management Unavaila ble Summary Purpose DataExchange Insurance Providers Payer name Policy type / Coverage type Covered constitution party ID Effective Begin Date Effective End Date [place] Medicare Risk [id number] Unknown Un known Family history Runs in the family Diagnosis Age At Onset No Known Diseases N/A Social History Social History Element Codes Description Effec tive Dates Marital status Unknown Single 02/04/2025 Living arrangements Unknown Assisted Living 02/[address]: 867701404 Never smoker 05/[address]: 711518579 No Alcohol Consum ption 02/04/2025 Sexually Active? [...] Assisted Living 12/[address]: 755993259 Never smoker 12/[address]: 441934450 No Alcohol Consum ption 12/21/2024 Children Unknown Has Children 12/21/2024 Caregiver Assessment Unknown No [facility] re POA on file 12/21/2024 Allergies, Adverse Reactions, Alerts Substance Reaction Codes Entered Date Inactivated Date Status Morphine Unknown 12/10/2024 No Inactive Date Ac tive Problems Condition Codes Effective Dates Condition St atus Adult general medical examination SNOMED CT: 712536970 ICD-10: Z00.00 ICD-9: V70.9 02/04/2025 Active Advance care planning SNOMED CT: 3810714 01 ICD-10: Z71.89 ICD-9: V65.49 02/04/2025 Active Allergic rhinitis due to other allergen ICD-10: J30.89 ICD-9: 477.8 02/04/2025 Active Anxiety ICD-10: F41.9 ICD-9: 300.00 02/04/2025 Active Essential (primary) hypertension ICD-10: I10 ICD-9: 401.9 02/04/2025 Active Essential tremor ICD-10: G25.0 ICD-9: 333.1 02/04/2025 Active Female stress incontinence ICD-10: N39.3 ICD-9: 625.6 02/04/[address]: 479901392 ICD-10: R54 ICD-9: 797 02/04/2025 Active MCI [...] carcinoma in situ of breast SNOMED CT: 31215636848412 ICD-10: Z86.000 ICD-9: V13.89 12/22/2024 Active Medications Medication Codes Instructions Start Date Stop Date Status Fill Instructions fluoxetine 40 mg capsule RxNorm: 633091 Take 1 Capsule(s) Oral QD 01/20/202 5 No Stop Date Active gabapentin 100 mg capsule RxNorm: 168481 Take 1 Capsule(s) Oral QD as needed 5 No Stop Date Active loperamide 2 mg capsule RxNorm: 699707 Take 2 Capsule(s) Oral take 2 caps po at onset of diarrhea, and may take 1 cap po fpr each loose stool thereafter. PRN max of 4 caps/24 hours PRN 5 04/22/20 25 Inactive ibuprofen 200 mg tablet RxNorm: 144764 Take 3 Tablet(s) Oral every 6 hours as needed 5 No Stop Date Active Aspercreme (lidocaine HCl) 4 % topical liquid roll-on RxNorm: 6397975 liquid roll-on Topical apply topically to lower back BID and may apply BID PRN 5 No Stop Date Active acetaminophen 500 mg tablet RxNorm: 835093 Take 2 Tablet(s) Oral every 6 hours as needed 5 04/22/20 25 Inactive Vitamin B-12 1,000 mcg tablet RxNorm: 725101 Take 1 Tablet(s) Oral QD 5 04/22/20 25 Inactive losartan 100 mg tablet RxNorm: 601431 Take 1 Tablet(s) Oral QD 5 No Stop Date Active carbidopa 25 mg-levodopa 100 mg tablet RxNorm: 573946 Take 3 Tablet(s) Oral QID 5 03/11/20 25 Inactive carbidopa ER 25 mg-levodopa 100 mg tablet,extended release RxNorm: 721982 Take 1 Tablet(s) Oral QHS every night at bedtime 5 No Stop Date Active donepezil 5 mg tablet RxNorm: 065184 Take 1 Tablet(s) Oral QHS every night at bedtime 5 No Stop Date Active Antacid 200 mg (as calcium carbonate 500 mg) chewable tablet RxNorm: 103924 Take 1 QD 5 04/05/20 25 Inactive [...] Item Item Code Result Date Service Location Urine Culture 49660 URINE CULTURE 50560-8 SEE RESU LTS BELOW 02/18/20 Unknown UA with Microscopic 71400 COLOR Yellow 02/16/20 Unknown UA with Microscopic 71164 Appearance Clear 02/16/20 Unknown UA with Microscopic 16261 GLUCOSE, URINE Negative mg/dL 02/16/20 Unknown UA with Microscopic 44773 BILIRUBIN, URINE Negative 02/16/20 Unknown UA with Microscopic 49545 Ketones Urine Negative mg/dL 02/16/20 Unknown UA with Microscopic 48524 Specific [place] Urine 1.017 02/16/20 Unknown UA with Microscopic 15647 BLOOD, URINE Negative 02/16/20 Unknown UA with Microscopic 20932 pH Urine 7.5 02/16/20 Unknown UA with Microscopic 08695 Protein urine Negative mg/dL 02/16/20 Unknown UA with Microscopic 48821 UROBILINOGEN IRIS Normal mg/dL 02/16/20 Unknown UA with Microscopic 76475 Nitrites Negative 02/16/20 Unknown UA with Microscopic 34683 LEUK ESTERASE Small 02/16/20 Unknown UA with Microscopic 33818 Mucus Urine Present /LPF 02/16/20 Unknown UA with Microscopic 04048 RBC Urine 1 /HPF 03/17/20 25 Unknown UA with Microscopic 71439 SQUAMOUS EPITHELIAL 1 /HPF 02/16/20 25 Unknown UA with Microscopic 11948 WBC Urine 64157-2 2 /HPF 02/16/20 25 Unknown Functional Status Functional / Cognitive Codes [...] Planned Activity Notes Codes Status Date Appointment: Didi Ann mayte WPtel: [phone] AWV 02/04/2025 Appointment: Didi Ann mayte WPtel: [address] [place] F/U 01/07/2025 Appointment: Didi Ann mayte WPtel: [phone] [place] 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 Previously lived in [facility] in [place], [place]. from first , second of 30 years . Has 4 sons, Pedro .PMH: History of breast cancer (2014), Parkinsons disease, lumbar spinal stenosis, essential tremor, HTN, osteoarthritis of right shoulder, allergic rhinitisPrimary contact: Eric Fuentes (son/POA)Code Status: DNR/SelectLab Schedule: Dec/JuneSpecialists: Neurology ([facility]) 02/02/2025
--- OUTSIDE RECORDS SUMMARY | 2025-05-13 07:52 | XMS_ITS | CCD ---
Author Name Tj Mayo Address [address] [place] [address] Phone Organization [facility] Phone Care Team Providers Care Line Up Examiner Name Role Phone Judith Mayo Primary Care Provider Un available Unavailable Chronic Care Management Unavaila ble Summary Purpose DataExchange Insurance Providers Payer name Policy type / Coverage type Covered democrat ID Effective Begin Date Effective End Date [place] H[place] Medicare Risk [id number] Unknown Un known Family history Runs in the family Diagnosis Age At Onset No Known Diseases N/A Social History Social History Element Codes Description Effec tive Dates Marital status Unknown Single 02/04/2025 Living arrangements Unknown Assisted Living 02/[address]: 539526239 Never smoker 05/[address]: 118360532 No Alcohol Consum ption 02/04/2025 Sexually Active? [...] Assisted Living 12/[address]: 129283643 Never smoker 12/[address]: 050209590 No Alcohol Consum ption 12/21/2024 Children Unknown Has Children 12/21/2024 Caregiver Assessment Unknown No [facility] re POA on file 12/21/2024 Allergies, Adverse Reactions, Alerts Substance Reaction Codes Entered Date Inactivated Date Status Morphine Unknown 12/10/2024 No Inactive Date Ac tive Problems Condition Codes Effective Dates Condition St atus Altered mental status, unspecified altered mental status type SNOMED CT: 274166548 ICD-10: R41.82 ICD-9: 780.97 02/18/2025 Active Essential (primary) hypertension SNOMED CT: 81744592 ICD-10: I10 ICD-9: 401.9 02/18/2025 Active Vitamin B12 deficiency (dietary) anemia SNOMED CT: 36580583 ICD-10: D51.8 ICD-9: 281.1 02/18/2025 Active Adult general medical examination SNOMED CT: 337104573 ICD-10: Z00.00 ICD-9: V70.9 02/04/2025 Active Advance care planning SNOMED CT: 6967908 01 ICD-10: Z71.89 ICD-9: V65.49 02/04/2025 Active Allergic rhinitis due to other allergen ICD-10: J30.89 ICD-9: 477.8 02/04/2025 Active Anxiety ICD-10: F41.9 ICD-9: 300.00 02/04/2025 Active Essential tremor ICD-10: G25.0 ICD-9: 333.1 02/04/2025 Active Female stress incontinence ICD-10: N39.3 ICD-9: 625.6 02/04/[address]: 731618144 ICD-10: R54 ICD-9: 797 02/04/2025 Active MCI [...] carcinoma in situ of breast SNOMED CT: 93489797767212 ICD-10: Z86.000 ICD-9: V13.89 12/22/2024 Active Medications Medication Codes Instructions Start Date Stop Date Status Fill Instructions fluoxetine 40 mg capsule RxNorm: 967759 Take 1 Capsule(s) Oral QD 5 No Stop Date Active gabapentin 100 mg capsule RxNorm: 288861 Take 1 Capsule(s) Oral QD as needed 5 No Stop Date Active loperamide 2 mg capsule RxNorm: 878958 Take 2 Capsule(s) Oral take 2 caps po at onset of diarrhea, and may take 1 cap po fpr each loose stool thereafter. PRN max of 4 caps/24 hours PRN 5 04/22/20 25 Inactive ibuprofen 200 mg tablet RxNorm: 851068 Take 3 Tablet(s) Oral every 6 hours as needed 5 No Stop Date Active Aspercreme (lidocaine HCl) 4 % topical liquid roll-on RxNorm: 1101473 liquid roll-on Topical apply topically to lower back BID and may apply BID PRN 5 No Stop Date Active acetaminophen 500 mg tablet RxNorm: 802326 Take 2 Tablet(s) Oral every 6 hours as needed 5 04/22/20 25 Inactive Vitamin B-12 1,000 mcg tablet RxNorm: 186006 Take 1 Tablet(s) Oral QD 5 04/22/20 25 Inactive losartan 100 mg tablet RxNorm: 292381 Take 1 Tablet(s) Oral QD 5 No Stop Date Active carbidopa 25 mg-levodopa 100 mg tablet RxNorm: 346662 Take 3 Tablet(s) Oral QID 5 03/11/20 25 Inactive carbidopa ER 25 mg-levodopa 100 mg tablet,extended release RxNorm: 031035 Take 1 Tablet(s) Oral QHS every night at bedtime 5 No Stop Date Active donepezil 5 mg tablet RxNorm: 497431 Take 1 Tablet(s) Oral QHS every night at bedtime 5 No Stop Date Active Antacid 200 mg (as calcium carbonate 500 mg) chewable tablet RxNorm: 425447 Take 1 QD 5 04/05/20 Inactive Medication Administered No Medication Administered data [...] Item Code Result Date Service Location Glucose [id number] GLUCOSE (RICKI) 2345-7 83 mg/dL 01/31 Unknown Vitamin B12 LAB67 Vitamin B12 2132-9 1426 pg/mL 02/19 25 Unknown CBC with Platelets [id number] WBC COUNT (AUTOMATED) 5.5 10e3/uL 02/20/20 25 Unknown CBC with Platelets [id number] RBC COUNT 789-8 4.00 10e6/uL 02/20/20 Unknown CBC with Platelets RER387 Hemoglobin 718-7 13.6 g/dL 02/20/20 25 Unknown CBC with Platelets SNR705 Hematocrit 4544-3 42.0 % 02/20/20 Unknown CBC with Platelets XST600 MCV 787-2 105 fL 02/20/20 25 Unknown CBC with Platelets PFE137 MCH 34.0 pg 02/20/20 25 Unknown CBC with Platelets YEC944 MCHC 32.4 g/dL 02/20/20 25 Unknown CBC with Platelets OUP574 RDW 12.9 % 02/20/20 25 Unknown CBC with Platelets BOM454 Platelet Count 777-3 368 10e3/uL 02/20/20 25 Unknown Comprehensive Metabolic Panel No Glucose [id number] Sodium 139 mmol/L 02/20/20 25 Unknown Comprehensive Metabolic Panel No Glucose [id number] POTASSIUM (RICKI) 2823-3 4.5 mmol/L 02/20/20 25 Unknown Comprehensive Metabolic Panel No Glucose [id number] CO2 (RICKI) 20 mmol/L 02/20/20 25 Unknown Comprehensive Metabolic Panel No Glucose [id number] ANION GAP (RICKI) 15 mmol/L 02/20/20 25 Unknown Comprehensive Metabolic Panel No Glucose [id number] UREA NITROGEN (RICKI) 27.7 mg/dL 02/20/20 25 Unknown Comprehensive Metabolic Panel No Glucose [id number] Creatinine 0.55 mg/dL 02/20/20 25 Unknown Comprehensive Metabolic Panel No Glucose [id number] GFR, ESTIMATE 73330-8 90 mL/min/1.7 3m2 02/20/20 25 Unknown Comprehensive Metabolic Panel No Glucose [id number] Calcium 9.2 mg/dL 02/20/20 25 Unknown Comprehensive Metabolic Panel No Glucose [id number] CHLORIDE (RICKI) 104 mmol/L 02/20/20 25 Unknown Comprehensive Metabolic Panel No Glucose [id number] Alkaline Phosphatase 121 U/L 02/20/20 25 Unknown Comprehensive Metabolic Panel No Glucose [id number] AST 24 U/L 02/20/20 25 Unknown Comprehensive Metabolic Panel No Glucose [id number] ALT <5 U/L 02/20/20 25 Unknown Comprehensive Metabolic Panel No Glucose [id number] PROTEIN, TOTAL 2885-2 6.4 g/dL 02/20/20 25 Unknown Comprehensive Metabolic Panel No Glucose [id number] Albumin 4.0 g/dL 02/20/20 25 Unknown Comprehensive Metabolic Panel No Glucose [id number] Bilirubin Total 0.9 mg/dL 02/20/20 25 Unknown Vitamin D Deficiency [id number] VITAMIN D DEFICIENCY SCREENING (RICKI) 42 ng/mL 02/20/20 25 Unknown TSH with Reflex to Free T4 [id number] TSH (RICKI) 39927-1 1.50 uIU/mL 02/20/20 25 Unknown Functional Status Functional / Cognitive [...] Date Patient Education: Patient Medication Summary Completed 02/18/2025 Care Plan: Comprehensive Metabolic Panel Pending 02/18/2025 Appointment: Ann Tolbert WPtel: [address] AWV 02/04/2025 Appointment: Ann Tolbert WPtel: [address] [place] F/U 01/07/2025 Appointment: Ann Tolbert WPtel: [address] [place] 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 Previously lived in [facility] in [place], [place]. from first , second of 30 years . Has 4 sons, Pedro .PMH: History of breast cancer (2013), Parkinsons disease, lumbar spinal stenosis, essential tremor, HTN, osteoarthritis of right shoulder, allergic rhinitisPrimary contact: Eric Fuentes (son/POA)Code Status: DNR/SelectLab Schedule: Specialists: Neurology ([facility]) 02/02/2025
--- OUTSIDE RECORDS SUMMARY | 2025-05-13 07:52 | XMS_ITS | CCD ---
Author Name Tj Mayo Address [address] [facility] [address] [place] [address] Phone Organization 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 Name Role Phone Juidth Mayo Primary Care Provider Un available Unavailable Chronic Care Management Unavaila ble Summary Purpose DataExchange Insurance Providers Payer name Policy type / Coverage type Covered libertarian ID Effective Begin Date Effective End Date [place] Medicare Risk [id number] Unknown Un known Family history Runs in the family Diagnosis Age At Onset No Known Diseases N/A Social History Social History Element Codes Description Effec tive Dates Marital status Unknown Single 02/04/2025 Living arrangements Unknown Assisted Living 02/[address]: 217785856 Never smoker 05/[address]: 222811724 No Alcohol Consum ption 02/04/2025 Sexually Active? [...] Assisted Living 12/[address]: 895668678 Never smoker 12/[address]: 405351864 No Alcohol Consum ption 12/21/2024 Children Unknown [...] Active Bilateral irreducible inguinal hernias SNOMED CT: 586971117 ICD-10: K40.00 ICD-9: 550.92 03/04/2025 Active MCI (mild cognitive impairment) ICD-10: G31.84 ICD-9: 331.83 03/04/2025 Active Essential (primary) hypertension SNOMED CT: 47171622 ICD-10: I10 ICD-9: 401.9 02/18/2025 Active Vitamin B12 deficiency (dietary) anemia SNOMED CT: 66479093 ICD-10: D51.8 ICD-9: 281.1 02/18/2025 Active Adult general medical examination SNOMED CT: 877980537 ICD-10: Z00.00 ICD-9: V70.9 02/04/2025 Active Advance care planning SNOMED CT: 0985662 01 ICD-10: Z71.89 ICD-9: V65.49 02/04/2025 Active Allergic rhinitis due to other allergen ICD-10: J30.89 ICD-9: 477.8 02/04/2025 Active Essential tremor ICD-10: G25.0 ICD-9: 333.1 02/04/2025 Active Female stress incontinence ICD-10: N39.3 ICD-9: 625.6 02/04/[address]: 173605495 ICD-10: R54 ICD-9: 797 02/04/2025 Active Primary osteoarthritis, right shoulder ICD-10: M19.011 ICD-9: 715.11 02/04/2025 Active Advanced care planning - to document end of life discussions Unknown 12/22/2024 Active History of ductal carcinoma in situ of breast SNOMED CT: 97773812710526 ICD-10: Z86.000 ICD-9: V13.89 12/22/2024 Active Medications Medication Codes Instructions Start Date Stop Date Status Fill Instructions docusate sodium 100 mg capsule RxNorm: 0499510 Take 1 Capsule(s) Oral BID 5 Active acetaminophen 500 mg tablet RxNorm: 446748 Take 1 Tablet(s) Oral QID as needed 5 No Stop Date Active loperamide 2 mg capsule RxNorm: 951082 Take 2 Capsule(s) Oral QD as needed 5 No Stop Date Active cyanocobalamin (vit B-12) 1,000 mcg sublingual lozenge RxNorm: 013697 1 TABLET ORALLY DAILY (DX: SUPPLEMENT) 5 Active PLEASE SEND REFILLS.PHARMAC Y PLEASE PROFILE FOR FUTURE USE-[facility] Calcium Antacid 200 mg (as calcium carbonate 500 mg) chewable tablet RxNorm: 047680 CHEW & SWALLOW 1 TABLET ORALLY DAILY (DX: SUPPLEMENT) 5 Active PLEASE SEND REFILLS.PHARMAC Y PLEASE PROFILE FOR FUTURE USE-[facility] carbidopa 25 mg-levodopa 100 mg tablet RxNorm: 103643 Take 3 Tablet(s) Oral QID at 7:30, 11:00, 2:30 and 6:30, then take 1 tab up to twice in the evening between 12am and 5am PRN for breakthrough tremors 5 No Stop Date Active lidocaine 4 % topical patch RxNorm: 5979579 Apply 1 adhesive patch,medicated Topical QD as needed on for 12 hours, off for 12 hours 5 No Stop Date Active Vitafusion Women's Multi 120 mcg chewable tablet RxNorm: Take 1 Tablet(s) Oral QD 5 No Stop Date Active fluoxetine 40 mg capsule RxNorm: 849748 Take 1 Capsule(s) Oral QD 5 No Stop Date Active gabapentin 100 mg capsule RxNorm: 703703 Take 1 Capsule(s) Oral QD as needed 5 No Stop Date Active ibuprofen 200 mg tablet RxNorm: 230816 Take 3 Tablet(s) Oral every 6 hours as needed 5 No Stop Date Active Aspercreme (lidocaine HCl) 4 % topical liquid roll-on RxNorm: 4454325 liquid roll-on Topical apply topically to lower back BID and may apply BID PRN 5 No Stop Date Active losartan 100 mg tablet RxNorm: 884588 Take 1 Tablet(s) Oral QD 5 No Stop Date Active carbidopa ER 25 mg-levodopa 100 mg tablet,extended release RxNorm: 477516 Take 1 Tablet(s) Oral QHS every night at bedtime 5 No Stop Date Active donepezil 5 mg tablet RxNorm: 595736 Take 1 Tablet(s) Oral QHS every night at bedtime 5 No Stop Date Active loperamide 2 mg capsule RxNorm: 841406 Take 2 Capsule(s) Oral take 2 caps po at onset of diarrhea, and may take 1 cap po fpr each loose stool thereafter. PRN max of 4 caps/24 hours PRN 5 025 Inactive acetaminophen 500 mg tablet RxNorm: 048428 Take 2 Tablet(s) Oral every 6 hours as needed 5 025 Inactive Vitamin B-12 1,000 mcg tablet RxNorm: 970840 Take 1 Tablet(s) Oral QD 5 025 Inactive carbidopa 25 mg-levodopa 100 mg tablet RxNorm: 863584 Take 3 Tablet(s) Oral QID 5 025 Inactive Antacid 200 mg (as calcium carbonate 500 mg) chewable tablet RxNorm: 509323 Take 1 QD 01 025 Inactive Medication [...] Service Location Respiratory Syncytial Virus (RSV) Antigen [id number] RESPIRATORY SYNCYTIAL VIRUS ANTIGEN Positive 025 Unknown Glucose [id number] GLUCOSE (RICKI) 2345-7 83 mg/dL 01/31 12/03 025 Unknown Vitamin B12 LAB67 Vitamin B12 2132-9 1426 pg/mL 02/19 025 Unknown CBC with Platelets RCW371 WBC COUNT (AUTOMATED) 5.5 10e3/uL 025 Unknown CBC with Platelets UTL451 RBC COUNT 789-8 4.00 10e6/uL 025 Unknown CBC with Platelets RSL210 Hemoglobin 718-7 13.6 g/dL 025 Unknown CBC with Platelets HDG483 Hematocrit 4544-3 42.0 % 025 Unknown CBC with Platelets WRM272 MCV 787-2 105 fL 025 Unknown CBC with Platelets APQ960 MCH 34.0 pg 025 Unknown CBC with Platelets NRB721 MCHC 32.4 g/dL 025 Unknown CBC with Platelets VFE568 RDW 12.9 % 025 Unknown CBC with Platelets PMP165 Platelet Count 777-3 368 10e3/uL 025 Unknown Comprehensive Metabolic Panel No Glucose [id number] Sodium 139 mmol/L 025 Unknown Comprehensive Metabolic Panel No Glucose [id number] POTASSIUM (RICKI) 2823-3 4.5 mmol/L 025 Unknown Comprehensive Metabolic Panel No Glucose [id number] CO2 (RICKI) 20 mmol/L 025 Unknown Comprehensive Metabolic Panel No Glucose [id number] ANION GAP (RICKI) 15 mmol/L 025 Unknown Comprehensive Metabolic Panel No Glucose [id number] UREA NITROGEN (RICKI) 27.7 mg/dL 025 Unknown Comprehensive Metabolic Panel No Glucose [id number] Creatinine 0.55 mg/dL 025 Unknown Comprehensive Metabolic Panel No Glucose [id number] GFR, ESTIMATE 52265-9 90 mL/min/1.73 m2 025 Unknown Comprehensive Metabolic Panel No Glucose [id number] Calcium 9.2 mg/dL 025 Unknown Comprehensive Metabolic Panel No Glucose [id number] CHLORIDE (RICKI) 104 mmol/L 025 Unknown Comprehensive Metabolic Panel No Glucose [id number] Alkaline Phosphatase 121 U/L 025 Unknown Comprehensive Metabolic Panel No Glucose [id number] AST 24 U/L 025 Unknown Comprehensive Metabolic Panel No Glucose [id number] ALT <5 U/L 025 Unknown Comprehensive Metabolic Panel No Glucose [id number] PROTEIN, TOTAL 2885-2 6.4 g/dL 025 Unknown Comprehensive Metabolic Panel No Glucose [id number] Albumin 4.0 g/dL 025 Unknown Comprehensive Metabolic Panel No Glucose [id number] Bilirubin Total 0.9 mg/dL 025 Unknown Vitamin D Deficiency ETK510 VITAMIN D DEFICIENCY SCREENING (RICKI) 42 ng/mL 025 Unknown TSH with Reflex to Free T4 [id number] TSH (RICKI) 97259-7 1.50 uIU/mL 025 Unknown Urine Culture 91000 URINE CULTURE 61644-4 SEE RESU LTS BELOW 025 Unknown UA with Microscopic 94554 COLOR Yellow 025 Unknown UA with Microscopic 23674 Appearance Clear 025 Unknown UA with Microscopic 60152 GLUCOSE, URINE Negative mg/dL 025 Unknown UA with Microscopic 63327 BILIRUBIN, URINE Negative 025 Unknown UA with Microscopic 44479 Ketones Urine Negative mg/dL 025 Unknown UA with Microscopic 62676 Specific [place] Urine 1.017 025 Unknown UA with Microscopic 38094 BLOOD, URINE Negative 025 Unknown UA with Microscopic 74107 pH Urine 7.5 025 Unknown UA with Microscopic 80358 Protein urine Negative mg/dL 025 Unknown UA with Microscopic 37942 UROBILINOGEN IRIS Normal mg/dL 025 Unknown UA with Microscopic 56379 Nitrites Negative 025 Unknown UA with Microscopic 21117 LEUK ESTERASE Small 025 Unknown UA with Microscopic 99512 Mucus Urine Present /LPF 025 Unknown UA with Microscopic 43253 RBC Urine 1 /HPF 025 Unknown UA with Microscopic 28992 SQUAMOUS EPITHELIAL 1 /HPF 025 Unknown UA with Microscopic 50766 WBC Urine 53468-6 2 /HPF 025 Unknown Glucose [id number] GLUCOSE (RICKI) 2345-7 74 mg/dL 12/03 04/02 025 Unknown Basic Metabolic Panel No Glucose [id number] Sodium 2951-2 140 mmol/L 025 Unknown Basic Metabolic Panel No Glucose [id number] POTASSIUM (RICKI) 2823-3 4.5 mmol/L 025 Unknown Basic Metabolic Panel No Glucose [id number] CHLORIDE (RICKI) 104 mmol/L 025 Unknown Basic Metabolic Panel No Glucose FPZC8619 CO2 (RICKI) 25 mmol/L 025 Unknown Basic Metabolic Panel No Glucose [id number] ANION GAP (RICKI) 11 mmol/L 025 Unknown Basic Metabolic Panel No Glucose [id number] UREA NITROGEN (RICKI) 27.4 mg/dL 025 Unknown Basic Metabolic Panel No Glucose BLPP2644 Creatinine 2160-0 0.60 mg/dL 025 Unknown Basic Metabolic Panel No Glucose [id number] GFR, ESTIMATE 56467-1 88 mL/min/1.73 m2 025 Unknown Basic Metabolic Panel No Glucose [id number] Calcium 45183-1 9.2 mg/dL 025 Unknown PHQ9 PHQ9 76491-0 5 025 Unknown SLUMS SLUMS 22367-2 24 025 Unknown Procedures Procedure Codes Date [...] CLIN DEPRES SCRN F/U DOC SNOMED CT: 18265709 CPT-4: G8431 02/04/2025 SYST BP LT 130 MM HG CPT-4: 3074F 01/07/2025 DIAST BP <80 MM HG CPT-4: 3078F 01/07/2025 SYST BP >/= 140 MM HG CPT-4: 3077F 12/22/2024 DIAST BP <80 MM HG CPT-4: 307F 12/22/2024 POS CLIN DEPRES SCRN F/U DOC SNOMED CT: 45481277 CPT-4: G8431 12/22/2024 Vital Signs Date Vital [...] 1: 138/74 Code: 8480-6 BMI: NaN Code: 36025-0 Heart Rate 1: 81 bpm Code: 8867-4 [...] Encounter Performer Location Location Address Codes Date ([id number]) Home Visit - Est Pt, moderate Diagnosis: Constipation, unspecified constipation type[ICD10: K59.00] Diagnosis: Acute cough[ICD10: R05.1] Diagnosis: Spinal stenosis, lumbar region, without neurogenic claudication[ICD10: M48.061] Diagnosis: Anxiety[ICD10: F41.9] [facility] [place] [address] CPT-4: 98148 04/29/2025 ([id number]) Home Visit - Est Pt, moderate Diagnosis: Constipation, unspecified constipation type[SNOMED: 96556367] Diagnosis: Loose stools[ICD10: R19.5] Diagnosis: Parkinson's disease, unspecified whether dyskinesia present, unspecified whether manifestations fluctuate[ICD10: G20.A1] Diagnosis: Acute cough[SNOMED: 684743806594912033] [facility] [address] [place] [address] CPT-4: 95492 03/30/2025 ([id number]) Home Visit - Est Pt, moderate Diagnosis: Loose stools[SNOMED: 419732409] Diagnosis: Altered mental status, unspecified altered mental status type[ICD10: R41.82] Diagnosis: Parkinson's disease, unspecified whether dyskinesia present, unspecified whether manifestations fluctuate[ICD10: G20.A1] Diagnosis: MCI (mild cognitive impairment)[ICD10: G31.84] Diagnosis: Bilateral irreducible inguinal hernias[SNOMED: 671144179] [facility] [address] [place] [phone] CPT-4: 26576 03/04/2025 ([id number]) Medicare Annual Wellness Visit- Subsequent Diagnosis: Adult general medical examination[SNOMED: 619328488] Diagnosis: Advance care planning[SNOMED: 005066232] Diagnosis: Frailty[SNOMED: 350348809] Diagnosis: Allergic rhinitis due to other allergen[ICD10: J30.89] Diagnosis: Essential (primary) hypertension[ICD10: I10] Diagnosis: Essential tremor[ICD10: G25.0] Diagnosis: Female stress incontinence[ICD10: N39.3] Diagnosis: MCI (mild cognitive impairment)[ICD10: G31.84] Diagnosis: Parkinson's disease, unspecified whether dyskinesia present, unspecified whether manifestations fluctuate[ICD10: G20.A1] Diagnosis: Primary osteoarthritis, right shoulder[ICD10: M19.011] Diagnosis: Spinal stenosis, lumbar region, without neurogenic claudication[ICD10: M48.061] Diagnosis: Anxiety[ICD10: F41.9] [facility] [address] [place] [address] CPT-4: G0439 02/04/2025 ([id number]) Home or Residence Visit Est Pt - Moderate Level, 40 mins Diagnosis: Essential (primary) hypertension[ICD10: I10] Diagnosis: Spinal stenosis, lumbar region, without neurogenic claudication[ICD10: M48.061] Diagnosis: Parkinson's disease, unspecified whether dyskinesia present, unspecified whether manifestations fluctuate[ICD10: G20.A1] [facility] [address] [place] [address] CPT-4: 35800 01/07/2025 ([id number]) Home or Residence Visit PRESS OFFICER - High Level, 75 mins Diagnosis: Parkinson's disease, unspecified whether dyskinesia present, unspecified whether manifestations fluctuate[SNOMED: 02913813] Diagnosis: Essential tremor[SNOMED: 599399362] Diagnosis: Allergic rhinitis due to other allergen[SNOMED: 56992765] Diagnosis: Essential (primary) hypertension[SNOMED: 31594389] Diagnosis: Primary osteoarthritis, right shoulder[SNOMED: 509685346477616] Diagnosis: Female stress incontinence[SNOMED: 46130738] Diagnosis: MCI (mild cognitive impairment)[SNOMED: 400788720] Diagnosis: Spinal stenosis, lumbar region, without neurogenic claudication[SNOMED: 34615155] Diagnosis: History of ductal carcinoma in situ of breast[SNOMED: 24326505597186] Diagnosis: ACP (advance care planning)[SNOMED: 062750671] Diagnosis: Anxiety[SNOMED: 79633734] [facility] [address] [place] [address] CPT-4: 23188 12/22/2024 Plan of Care Planned Activity Notes Codes Status Date Appointment: Ann Tolbert WPtel: [address] [place], [place] [phone] F/U 04/29/2025 Patient Education: Patient Medication Summary Completed 04/29/2025 Patient Education: Influenza Complet ed 04/29/2025 Appointment: Ann Tolbert WPtel: [phone] [place] F/U 03/30/2025 Patient Education: Patient Medication Summary Completed 03/30/2025 Patient Education: Influenza Complet ed 03/30/2025 Appointment: Ann Tolbert WPtel: [phone] [place] F/U 03/04/2025 Patient Education: Patient Medication Summary Completed 03/04/2025 Patient Education: Influenza Complet ed 03/04/2025 Patient Education: Patient Medication Summary Completed 02/18/2025 Care Plan: Comprehensive Metabolic Panel Pending 02/18/2025 Appointment: Ann Tolbert WPtel: [phone] AWV 02/04/2025 Patient Education: Patient Medication Summary Completed 02/04/2025 Patient Education: Influenza Complet ed 02/04/2025 Patient Education: Addiction and Substance Abuse Completed 02/04/2025 Patient Education: Exercise and Fitness Completed 02/04/2025 Patient Education: Fall Prevention C ompleted 02/04/2025 Appointment: Ann Tolbert WPtel: [phone] F/U 01/07/2025 Patient Education: Patient Medication Summary Completed 01/07/2025 Patient Education: Influenza Complet ed 01/07/2025 Appointment: Ann Tolbert WPtel: [phone] PRESS OFFICER 12/22/2024 Patient Education: Patient Medication Summary Completed 12/22/2024 Patient Education: Influenza Complet ed 12/22/2024 Care Plan: Basic Metabolic Panel [place] 12/22/2024 Instructions Comment Date Alysa resides at [facility]. Previously lived in [facility] in [place], [place]. from first , second of 30 [...] group. We did discuss ACP therapy through [facility] which she is somewhat interested in. [...] GI specialist last year according to her [id number]). Recommended docusate sodium prn or every other day for constipation. Family will obtain this OTC for patient. Parkinson's disease, unspecified whether dyskinesia present, unspecified whether manifestations fluctuate Unfortunately had another fall shortly after the last [place] visit. She fell out of a chair [...] including bending over in the hallways to tack picker trays for other people. Advised patient [...] present, unspecified whether manifestations fluctuate Follows with [facility] Q6M, next f/u is next week according to family. Uses walker as gait aid. Has not fallen in months according to patient. Takes 3 Sinemet QID and she feels when the medication wears off. Anxiety Feels her anxiety is generally well controlled on current medication. She hasn't had much of an appetite since she moved to [place].. 12/22/2024
--- NOTE | 2025-05-13 07:59 | ED_ITS ---
HPI - General Adult General Time Seen by Provider: 07:59 Date Seen: 05/13/25 Chief complaint: Dizziness/Vertigo Stated complaint: dizzy, light head, chills and high BP Time Seen by Provider: 05/13/25 07:58 Source: patient and RN notes reviewed Mode of arrival: ambulatory Limitations: no limitations History of Present Illness HPI narrative: This 84-year-old female is coming in accompanied by her [id number]-[id number] with complains of feeling lightheaded / dizzy, could not sleep last night, felt restless. She did forget to take her Parkinson's medication last night. She states her feet felt numb and tingly and her legs jumpy. Her qnwpyyyz-[id number] notes she does have known peripheral neuropathy as well as Parkinson's. She had RSV about 5 weeks ago, note no residual coughing. She had no pain last night outside of some low back pain. Her [id number] notes that she does have known spinal stenosis and degenerative changes in her low back. She tried some topical lidocaine without relief. Nursing staff noted her blood pressure was elevated with systolics of 180 overnight. She does report chills but nursing staff reportedly did not check temperature or she does not remember having her temperature checked and did not have 1. We have no reports of a fever however. She has had no abdominal pain, no nausea or vomiting. She baseline for years has had intermittent bowel problems for which they take a stool softener and psyllium to try to regulate. She will have intermittent diarrhea which she did last week. Her [id number] wonders if she perhaps just forgot her medicine last night and thus could not sleep due to some Parkinson's issues. They do note that she has been complaining of generalized weakness for while, reportedly proceeding the RSV. Patient resides at [facility] and is reportedly responsible for her own medications. She is reported to have some dementia with her Parkinson's. Related Data Home Medications ?Medication ?Instructions ?Recorded ?Confirmed carbidopa ER 25 mg-levodopa 100 mg 1 tab PO QPM 05/13/25 tablet,extended release carbidopa 25 mg-levodopa 100 mg 3 tab PO QID 11/06/23 05/13/25 tablet donepezil 5 mg tablet 5 mg PO QDAY 03/24/24 gabapentin 100 mg capsule 100 mg PO QDAY PRN 03/24/24 05/13/25 calcium carbonate (Tame The Flame) 195 mg PO DAILY 05/13/25 cyanocobalamin (B12)-cobamamide catarino sublingual 5 5,000 mcg-100 mcg sublingual lozenge (B12) Previous Rx's ?Medication ?Instructions ?Recorded losartan 100 mg tablet 100 mg PO DAILY #90 tabs 09/25 acetaminophen 500 mg tablet 500 mg PO QID PRN fever or pain 04/02/25 #240 tabs fluoxetine 40 mg capsule 40 mg PO DAILY for anxiety # 90 caps 04/02/25 ibuprofen 200 mg tablet 600 mg (3 x 200 mg) PO Q6H P RN for 04/02/25 pain #100 tabs lidocaine HCl 4 % topical liquid See Rx Instructions t opical BID 04/02/25 roll-on (Aspercreme (lidocaine PRN pain #73 mL HCl)) loperamide 2 mg capsule 4 mg (2 x 2 mg) PO QDAY PRN loose 04/02/25 stool #30 caps multivitamin with minerals-folic 1 tab PO DAILY #90 ta bs 04/02/25 acid 120 mcg chewable tablet (Vitafusion Women's Multi) Allergies Allergy/AdvReac Type Severity Reaction Status Date / Time morphine Allergy Unknown Violently Verified 05/13/25 07:07 Vomits Review of Systems Status of ROS: Reports: 6 or more systems reviewed and unremarkable except as noted in History and below [facility] Medical History Osteoporosis ?M81.0 - Age-related osteoporosis without current pathological fracture (ICD-10) Buttock pain ?M79.18 - Myalgia, other site (ICD-10) Compression fracture of L2 ?S32.020A - Wedge compression fracture of second lumbar vertebra, initial encounter for closed fracture (ICD-10) UTI (urinary tract infection) ?N39.0 - Urinary tract infection, site not specified (ICD-10) Urge incontinence ?N39.41 - Urge incontinence (ICD-10) History of fracture of vertebra ?Z87.81 - Personal history of (healed) traumatic fracture (ICD-10) POLST (Physician Orders for Life-Sustaining Treatment) ?Z78.9 - Other specified health status (ICD-10) History of malignant neoplasm of breast ?Z85.3 - Personal history of malignant neoplasm of breast (ICD-10) Surgical History H/O cataract extraction ?Z98.49 - Cataract extraction status, unspecified eye (ICD-10) History of appendectomy ?Z90.49 - Acquired absence of other specified parts of digestive tract (ICD- 10) Status post total replacement of right shoulder (~2016) ?Z96.611 - Presence of right artificial shoulder joint (ICD-10) Status post total replacement of left shoulder (~2005) ?Z96.612 - Presence of left artificial shoulder joint (ICD-10) History of total bilateral knee replacement ?Z96.653 - Presence of artificial knee joint, bilateral (ICD-10) History of lumpectomy ?Z98.890 - Other specified postprocedural states (ICD-10) History of hysterectomy ?Z90.710 - Acquired absence of both cervix and uterus (ICD-10) History of colonoscopy ?Z98.890 - Other specified postprocedural states (ICD-10) Family History Mother Colon cancer Father Prostate cancer Other Breast cancer Cancer Social History Narrative: Does not use illicit drugs Nonsmoker Occasional alcohol consumption 2022 Smoking Status: Never smoker Do you use any of these nicotine containing products: None How often do you have a drink containing alcohol: monthly or less Alcohol type: wine How often do you have six or more drinks on one occasion: Daily or almost daily AUDIT-C Alcohol total score: 5 Non-prescribed substance use: denies use Caffeine: No Are you using contraception or practicing any form of control: No Exam Const: Vital Signs, click to edit/add: Vital Signs - 24 hr 05/13/25 07:07 05/13/25 08:06 05/13/25 09:32 Temperature 98.4 F 98.4 F Pulse Rate [Pulse Oximeter] 85 74 Respiratory Rate 16 18 Blood Pressure [Ri ght Upper Arm] 153/86 H 134/70 Pulse Oximetry 98 96 97 Oxygen Delivery Me thod Room Air Room Air This 84-year-old female is alert, interactive, speech is normal and is speaking in complete sentences without difficulty. Sclera clear but does have some reddened character of her eyes, looks tired but is not falling asleep when I talked to her. Conjugate gaze, symmetrical facial function. Neck supple, no masses, no jugular venous distension. She can sit up easily in bed, lungs are clear, no wheezing or crackles, no tachypnea, no accessory muscle use. Does have some kyphosis. No skin changes over her back. CV regular rate and rhythm, no murmur, normal S1-S2, no S3-S4. Abdomen is soft, nontender, nondistended, no organomegaly. Moving her arms and legs, following commands, no focal deficits. 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 Documenting provider has reviewed patient's vital signs: yes Course Course ED Course: This 84-year-old female had issue sleeping last night but not pain necessarily, felt more restless. She did have RSV about 5 weeks ago. There could be occult infection. 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 Did review with her that we certainly will consider that and look for that. We did discuss secondary pneumonia, occult urinary tract infections. Will look at a full complement of labs including inflammatory markers, urinalysis, chest x-ray. Her weakness is more a generalized feeling in no neurologic deficits. Do not have any concern for active cerebrovascular disease or any notable focal deficits at this time. She has no fever, no hemodynamic compromise and thus do not feel blood cultures are necessary but will consider getting them if we see changes significant with infectious etiology here. Reevaluation(s) Time of Reevaluation #1: 10:04 Reevaluation #1: Have reviewed with patient and her pkjrmaur-sc-mmv that labs are reassuring. Urinalysis does show contamination but we will culture the urine. I would not treat for UTI based on current symptoms and urinalysis results. If the urine culture definitively grow something, treatment certainly can be considered. At this time, do think it is reasonable for discharge to home. They are in agreement with this. Vital Signs Vital signs: Initial Vital Signs Temperature 98.4 F 05/13/25 07:07 Temperature Source Temporal Artery Scan 05/13/25 07:07 Pulse Rate 85 05/13/25 07:07 Pulse Rhythm Regular 05/13/25 07:07 Pulse Strength 3+ Normal 05/13/25 07:07 Respiratory Rate 16 05/13/25 07:07 Blood Pressure 153/86 H 05/13/25 07:07 Blood Pressure Mean 108 H 05/13/25 07:07 Blood Pressure Position Sitting 05/13/25 07:07 Pulse Oximetry 98 05/13/25 07:07 Oxygen Delivery Method Room Air 05/13/25 07:07 Vital Signs Temperature 98.4 F 05/13/25 07:07 Pulse Rate 85 05/13/25 07:07 Respiratory Rate 16 05/13/25 07:07 Blood Pressure 153/86 H 05/13/25 07:07 Pulse Oximetry 98 05/13/25 07:07 Oxygen Delivery Method Room Air 05/13/25 07:07 Temperature 98.4 F 05/13/25 09:32 Pulse Rate 74 05/13/25 09:32 Respiratory Rate 18 05/13/25 09:32 Blood Pressure 134/70 05/13/25 09:32 Pulse Oximetry 97 05/13/25 09:32 Oxygen Delivery Method Room Air 05/13/25 09:32 Medical Decision Making Lab Data Labs: Lab Results 05/13/25 05/13/25 05/13/25 Range/Units 07:15 08:56 09:22 WBC 5.50 (4.50-11.00) K/uL RBC 3.76 L (4.00-5.20) m/uL Hgb 12.2 (12.0-16.0) gm/dL Hct 37.2 (33.0-51.0) % MCV 99 (80-100) fL MCH 32 (26-34) pg MCHC 33 (32-36) gm/dL RDW Coeff of Moraima 12.3 (11.5-15.5) % Plt Count 252 (140-440) K/uL Neut % (Auto) 80.9 H (42.0-72.0) % Lymph % (Auto) 7.5 L (20-44) % Davison % (Auto) 9.6 (0.0-11.0) % Eos % (Auto) 1.1 (0.0-7.0) % Baso % (Auto) 0.5 (0.0-3.0) % Neut # (Auto) 4.40 (1.7-7.0) K/uL Lymph # (Auto) 0.40 L (0.90-2.90) K/uL Davison # (Auto) 0.50 (0.00-0.90) K/UL Eos # (Auto) 0.06 (0.00-0.50) K/uL Baso # (Auto) 0.03 (0.00-0.30) K/uL Abs Immat Gran (auto) 0.02 (0.00-0.30) K/uL Imm/Tot Granulo (auto) 0.4 % ESR 6 (2-20) mm/hr Sodium 136 (135-149) mmol/L Potassium 3.5 L (3.6-5.1) mmol/L Chloride 104 (96-114) mmol/L Carbon Dioxide 25 (20-32) mmol/L Anion Gap 7 (7-15) mEq/L BUN 24 (7-30) mg/dL Creatinine 0.5 (0.5-1.5) mg/dL Estimated Creat Clear 39.28 Estimated GFR 92 ml/min Glucose 90 (60-115) mg/dL Lactate 0.9 (0.5-1.9) mmol/L Calcium 8.7 (8.4-10.6) mg/dL Total Bilirubin 0.7 (0.1-1.5) mg/dL AST 22 (12-35) U/L ALT 6 (4-35) U/L Alkaline Phosphatase 66 (40-150) U/L Troponin I < 0.01 (0.01-0.04) ng/mL C-Reactive Protein < 0.5 L (0.5-1.0) mg/dL NT-Pro-B Natriuret Pep 268 (See Note) pg/mL Total Protein 5.9 L (6.0-8.3) g/dL Albumin 3.8 (3.3-5.0) g/dL Urine Color Yellow (Yellow) Urine Appearance Clear (Clear) Urine pH 6.5 (5.0-8.5) Ur Specific [place] 1.020 (1.000-1.030) Urine Protein Negative (Negative) Urine Glucose (UA) Negative (Negative) Urine Ketones 1+ A (Negative) Urine Blood Negative (Negative) Urine Nitrite Negative (Negative) Urine Bilirubin Negative (Negative) Urine Urobilinogen 0.2 (0.2-1.0) Ur Leukocyte Esterase 2+ A (Negative) Urine RBC 0-2 (0-2) Urine WBC 5-10 A (0-5) Ur Squamous Epith Cells Moderate A (None-Few) Urine Bacteria Few A (None) Urine Mucus Few A (None) SARS-CoV-2 (PCR) Negative SARS-CoV-2 (Negative) Influenza Type A (PCR) Negative PCR FLU A (Negative) Influenza Type B (PCR) Negative PCR FLU B (Negative) RSV (PCR) Negative PCR RSV (Negative) Imaging Data Chest x-ray: Attestation: I have reviewed the pertinent imaging results. My impression: I do not see any acute pathology on my preliminary review on this chest x-ray. Radiologist's impression: [facility] Patient ID:?[id number] Site Patient ID:?[id number]. Site :?[id number] Study:?XRay-Chest 2V-05/13/2025 8:42:55 AM Ordering Physician:Rose Peña Final Report: INDICATION: Weakness, RSV 5 weeks ago. TECHNIQUE: Chest 2 views. COMPARISON: None. FINDINGS/ IMPRESSION: No focal consolidation, effusion or pneumothorax. Cardiac size is within normal limit without pulmonary edema. No acute osseous findings. Bilateral shoulder arthroplasties. Dictated by Andrés Laguerre MD @ 05/13/2025 8:52:52 AM (Electronic Signature) ECG Data Attestation: I personally reviewed and interpreted this ECG as follows: ( normal sinus rhythm, 74 beats per minute. No ischemia, no infarct noted.) Prior ECG tracings: available for review Discharge Plan Discharge Clinical Impression: Weakness Patient Disposition: Home, Self-Care Condition: Stable Instructions: Weakness (ED) Additional Instructions: Continue with your current medications, try to remember to take your medicines at the appropriate scheduled time. If you notice that you are having ongoing issues with remembering medications, may need some further assistance in taking your medicines. Continue to monitor symptoms, if you develop a fever, have any specific symptoms that are concerning you develop, feel you are worsening at any point, please seek re-evaluation. We will certainly notify you if the urine culture does come back positive and send in antibiotics. The urinalysis is not definitively suggestive of urinary tract infection and thus, we will await urine culture. Activity Level: Activity as Tolerated Prescriptions: No Action carbidopa-levodopa 25-100 mg tablet extended release 1 tab PO QPM Tame The Flame 195 mg calcium (500 mg) tablet,chewable 195 mg PO DAILY losartan 100 mg tablet 100 mg PO DAILY Qty: 90 3RF carbidopa-levodopa 25-100 mg tablet 3 tab PO QID B12 5,000-100 mcg lozenge sublingual donepezil 5 mg tablet 5 mg PO QDAY gabapentin 100 mg capsule 100 mg PO QDAY PRN acetaminophen 500 mg tablet 500 mg PO QID PRN (Reason: fever or pain) Qty: 240 11RF fluoxetine 40 mg capsule 40 mg PO DAILY Qty: 90 4RF ibuprofen 200 mg tablet 600 mg PO Q6H PRN (Reason: for pain) Qty: 100 4RF loperamide 2 mg capsule 4 mg PO QDAY PRN (Reason: loose stool) Qty: 30 11RF lidocaine HCl [Aspercreme (lidocaine HCl)] 4 % liquid roll-on See Rx Instructions topical BID PRN (Reason: pain) Qty: 73 11RF Rx Instructions: topically twice a day PRN; apply reasonable amount multivit with min-folic acid [Vitafusion Women's Multi] 120 mcg tablet,chewable 1 tab PO DAILY Qty: 90 3RF Follow Up/Referrals: Provider,Not a Local [Primary Care Provider, Family Practice] Stand Alone Forms: [facility] Info Instructions
[2025-05-13 08:00] LABS: PCR FLU A Negative PCR FLU A (Negative); PCR FLU B Negative PCR FLU B (Negative); PCR RSV Negative PCR RSV (Negative); SARS PCR* Negative SARS-CoV-2 (Negative)
[2025-05-13 08:06] VITALS: O2SAT 96
--- NOTE | 2025-05-13 08:06 | CRLHL7_ITS ---
For Patients: As a result of the Century Cures Act, medical imaging exams and procedure reports are released immediately into your electronic medical record. You may view this report before your referring provider. If you have questions, please contact your health care provider. INDICATION: Weakness, RSV 5 weeks ago. TECHNIQUE: Chest 2 views. COMPARISON: None. FINDINGS/ IMPRESSION: No focal consolidation, effusion or pneumothorax. Cardiac size is within normal limit without pulmonary edema. No acute osseous findings. Bilateral shoulder arthroplasties. Dictated by Andrés Laguerre MD @ 05/13/2025 8:52:52 AM (Electronically Signed)
[2025-05-13 09:02] LABS: Lactate* 0.9 mmol/L (0.5-1.9)
[2025-05-13 09:03] LABS: Basophils Absolute Auto 0.03 K/uL (0.00-0.30); Basophils Percent Auto 0.5 % (0.0-3.0); Eosinophils Absolute Auto 0.06 K/uL (0.00-0.50); Eosinophils Percent Auto 1.1 % (0.0-7.0); Hematocrit 37.2 % (33.0-51.0); Hemoglobin* 12.2 gm/dL (12.0-16.0); Immature Granulocytes Abs Auto 0.02 K/uL (0.00-0.30); Immature Granulocytes Pct Auto 0.4 %; Lymphocytes Percent Auto 7.5 % (20-44); Mean Corpuscular HGB Conc 33 gm/dL (32-36); Mean Corpuscular Hemoglobin 32 pg (26-34); Mean Corpuscular Volume 99 fL (80-100); Monocytes Percent Auto 9.6 % (0.0-11.0); Neutrophils Percent Auto 80.9 % (42.0-72.0); Platelet Count* 252 K/uL (140-440); RDW Coefficient of Variation % 12.3 % (11.5-15.5); Red Blood Count 3.76 m/uL (4.00-5.20)
[2025-05-13 09:04] LABS: Slide Review Reflex No
[2025-05-13 09:16] LABS: Albumin* 3.8 g/dL (3.3-5.0); Chloride* 104 mmol/L (96-114); Potassium* 3.5 mmol/L (3.6-5.1); Sodium* 136 mmol/L (135-149)
[2025-05-13 09:19] LABS: Alanine Aminotransferase* 6 U/L (4-35); Aspartate Amino Transferase* 22 U/L (12-35); Blood Urea Nitrogen* 24 mg/dL (7-30); Creatinine* 0.5 mg/dL (0.5-1.5); Est. Creatinine Clearance* 39.28; Estimated Glomerular Filt Rate 92 ml/min
[2025-05-13 09:20] LABS: Alkaline Phosphatase* 66 U/L (40-150); Anion Gap 7 mEq/L (7-15); Bilirubin Total* 0.7 mg/dL (0.1-1.5); Calcium* 8.7 mg/dL (8.4-10.6); Carbon Dioxide* 25 mmol/L (20-32); Glucose* 90 mg/dL (60-115); Total Protein* 5.9 g/dL (6.0-8.3)
[2025-05-13 09:32] VITALS: BP 134/70; PULSE 74; RESP 18; TEMP 36.9; O2SAT 97
[2025-05-13 09:32] LABS: C Reactive Protein* < 0.5 mg/dL (0.5-1.0); NT Pro B Type NatriureticPept* 268 pg/mL (See Note); Troponin I* < 0.01 ng/mL (0.01-0.04)
[2025-05-13 09:43] LABS: Appearance Urine Clear (Clear); Bilirubin Urine Negative (Negative); Blood Urine Negative (Negative); Color Urine Yellow (Yellow); Glucose Urine Negative (Negative); Ketones Urine 1+ (Negative); Leukocyte Esterase Urine 2+ (Negative); Nitrite Urine Negative (Negative); Protein Urine Negative (Negative); Urobilinogen Urine 0.2 (0.2-1.0); pH Urine 6.5 (5.0-8.5)
[2025-05-13 09:47] LABS: Bacteria Urine Few; Mucus Urine Few; RBC Urine 0-2 (0-2); Squamous Epithelial Cell Urine Moderate (None-Few)
[2025-05-13 09:57] LABS: Erythrocyte SedimentationRate* 6 mm/hr (2-20)
--- OUTSIDE RECORDS SUMMARY | 2025-05-13 10:32 | XMS_ITS | CCD ---
Author Name Tj Mayo Address [address] [facility] [address] [place] [address] Phone Organization [facility] Phone Care Team Providers Care Ceiling Insulation Blower Name Role Phone Judith Mayo Primary Care Provider Un available Unavailable Chronic Care Management Unavaila ble Summary Purpose DataExchange Insurance Providers Payer name Policy type / Coverage type Covered democrat ID Effective Begin Date Effective End Date [place] Medicare Risk [id number] Unknown Un known Family history Runs in the family Diagnosis Age At Onset No Known Diseases N/A Social History Social History Element Codes Description Effec tive Dates Marital status Unknown Single 02/04/2025 Living arrangements Unknown Assisted Living 02/[address]: 681582396 Never smoker 05/[address]: 627572866 No Alcohol Consum ption 02/04/2025 Sexually Active? [...] Assisted Living 12/[address]: 187402091 Never smoker 12/[address]: 491560281 No Alcohol Consum ption 12/21/2024 Children Unknown [...] Active Bilateral irreducible inguinal hernias SNOMED CT: 790284563 ICD-10: K40.00 ICD-9: 550.92 03/04/2025 Active MCI (mild cognitive impairment) ICD-10: G31.84 ICD-9: 331.83 03/04/2025 Active Essential (primary) hypertension SNOMED CT: 57670535 ICD-10: I10 ICD-9: 401.9 02/18/2025 Active Vitamin B12 deficiency (dietary) anemia SNOMED CT: 20582176 ICD-10: D51.8 ICD-9: 281.1 02/18/2025 Active Adult general medical examination SNOMED CT: 647057233 ICD-10: Z00.00 ICD-9: V70.9 02/04/2025 Active Advance care planning SNOMED CT: 4260190 01 ICD-10: Z71.89 ICD-9: V65.49 02/04/2025 Active Allergic rhinitis due to other allergen ICD-10: J30.89 ICD-9: 477.8 02/04/2025 Active Essential tremor ICD-10: G25.0 ICD-9: 333.1 02/04/2025 Active Female stress incontinence ICD-10: N39.3 ICD-9: 625.6 02/04/[address]: 497026313 ICD-10: R54 ICD-9: 797 02/04/2025 Active Primary osteoarthritis, right shoulder ICD-10: M19.011 ICD-9: 715.11 02/04/2025 Active Advanced care planning - to document end of life discussions Unknown 12/22/2024 Active History of ductal carcinoma in situ of breast SNOMED CT: 73599280119104 ICD-10: Z86.000 ICD-9: V13.89 12/22/2024 Active Medications Medication Codes Instructions Start Date Stop Date Status Fill Instructions docusate sodium 100 mg capsule RxNorm: 7411099 Take 1 Capsule(s) Oral BID 5 Active acetaminophen 500 mg tablet RxNorm: 664350 Take 1 Tablet(s) Oral QID as needed 5 No Stop Date Active loperamide 2 mg capsule RxNorm: 072038 Take 2 Capsule(s) Oral QD as needed 5 No Stop Date Active cyanocobalamin (vit B-12) 1,000 mcg sublingual lozenge RxNorm: 059164 1 TABLET ORALLY DAILY (DX: SUPPLEMENT) 5 Active PLEASE SEND REFILLS.PHARMAC Y PLEASE PROFILE FOR FUTURE USE-[facility] Calcium Antacid 200 mg (as calcium carbonate 500 mg) chewable tablet RxNorm: 027996 CHEW & SWALLOW 1 TABLET ORALLY DAILY (DX: SUPPLEMENT) 5 Active PLEASE SEND REFILLS.PHARMAC Y PLEASE PROFILE FOR FUTURE USE-[facility] carbidopa 25 mg-levodopa 100 mg tablet RxNorm: 252570 Take 3 Tablet(s) Oral QID at 7:30, 11:00, 2:30 and 6:30, then take 1 tab up to twice in the evening between 12am and 5am PRN for breakthrough tremors 5 No Stop Date Active lidocaine 4 % topical patch RxNorm: 4511836 Apply 1 adhesive patch,medicated Topical QD as needed on for 12 hours, off for 12 hours 5 No Stop Date Active Vitafusion Women's Multi 120 mcg chewable tablet RxNorm: Take 1 Tablet(s) Oral QD 5 No Stop Date Active fluoxetine 40 mg capsule RxNorm: 709644 Take 1 Capsule(s) Oral QD 5 No Stop Date Active gabapentin 100 mg capsule RxNorm: 903613 Take 1 Capsule(s) Oral QD as needed 5 No Stop Date Active ibuprofen 200 mg tablet RxNorm: 127981 Take 3 Tablet(s) Oral every 6 hours as needed 5 No Stop Date Active Aspercreme (lidocaine HCl) 4 % topical liquid roll-on RxNorm: 9164963 liquid roll-on Topical apply topically to lower back BID and may apply BID PRN 5 No Stop Date Active losartan 100 mg tablet RxNorm: 832726 Take 1 Tablet(s) Oral QD 5 No Stop Date Active carbidopa ER 25 mg-levodopa 100 mg tablet,extended release RxNorm: 790863 Take 1 Tablet(s) Oral QHS every night at bedtime 5 No Stop Date Active donepezil 5 mg tablet RxNorm: 838523 Take 1 Tablet(s) Oral QHS every night at bedtime 5 No Stop Date Active loperamide 2 mg capsule RxNorm: 336176 Take 2 Capsule(s) Oral take 2 caps po at onset of diarrhea, and may take 1 cap po fpr each loose stool thereafter. PRN max of 4 caps/24 hours PRN 5 025 Inactive acetaminophen 500 mg tablet RxNorm: 475086 Take 2 Tablet(s) Oral every 6 hours as needed 5 025 Inactive Vitamin B-12 1,000 mcg tablet RxNorm: 708171 Take 1 Tablet(s) Oral QD 5 025 Inactive carbidopa 25 mg-levodopa 100 mg tablet RxNorm: 575722 Take 3 Tablet(s) Oral QID 5 025 Inactive Antacid 200 mg (as calcium carbonate 500 mg) chewable tablet RxNorm: 012881 Take 1 QD 5 025 Inactive Medication Administered No Medication [...] Service Location Respiratory Syncytial Virus (RSV) Antigen [id number] RESPIRATORY SYNCYTIAL VIRUS ANTIGEN Positive 025 Unknown Comprehensive Metabolic Panel No Glucose [id number] Sodium 139 mmol/L 025 Unknown Comprehensive Metabolic Panel No Glucose [id number] POTASSIUM (RICKI) 2823-3 4.5 mmol/L 025 Unknown Comprehensive Metabolic Panel No Glucose [id number] CO2 (RICKI) 20 mmol/L 025 Unknown Comprehensive Metabolic Panel No Glucose [id number] ANION GAP (RICKI) 15 mmol/L 025 Unknown Comprehensive Metabolic Panel No Glucose [id number] UREA NITROGEN (RICKI) 27.7 mg/dL 025 Unknown Comprehensive Metabolic Panel No Glucose [id number] Creatinine 0.55 mg/dL 025 Unknown Comprehensive Metabolic Panel No Glucose [id number] GFR, ESTIMATE 31462-4 90 mL/min/1.73 m2 025 Unknown Comprehensive Metabolic Panel No Glucose [id number] Calcium 9.2 mg/dL 025 Unknown Comprehensive Metabolic Panel No Glucose [id number] CHLORIDE (RICKI) 104 mmol/L 025 Unknown Comprehensive Metabolic Panel No Glucose [id number] Alkaline Phosphatase 121 U/L 025 Unknown Comprehensive Metabolic Panel No Glucose [id number] AST 24 U/L 025 Unknown Comprehensive Metabolic Panel No Glucose [id number] ALT <5 U/L 025 Unknown Comprehensive Metabolic Panel No Glucose PMGV0751 PROTEIN, TOTAL 2885-2 6.4 g/dL 025 Unknown Comprehensive Metabolic Panel No Glucose [id number] Albumin 4.0 g/dL 025 Unknown Comprehensive Metabolic Panel No Glucose [id number] Bilirubin Total 0.9 mg/dL 025 Unknown Vitamin D Deficiency GAG730 VITAMIN D DEFICIENCY SCREENING (RICKI) 42 ng/mL 025 Unknown TSH with Reflex to Free T4 [id number] TSH (RICKI) 51174-4 1.50 uIU/mL 025 Unknown CBC with Platelets FIZ228 WBC COUNT (AUTOMATED) 5.5 10e3/uL 025 Unknown CBC with Platelets DWP750 RBC COUNT 789-8 4.00 10e6/uL 025 Unknown CBC with Platelets ETZ363 Hemoglobin 718-7 13.6 g/dL 025 Unknown CBC with Platelets JEE487 Hematocrit 4544-3 42.0 % 025 Unknown CBC with Platelets AIS090 MCV 787-2 105 fL 025 Unknown CBC with Platelets LZL114 MCH 34.0 pg 025 Unknown CBC with Platelets MRA234 MCHC 32.4 g/dL 025 Unknown CBC with Platelets BQT921 RDW 12.9 % 025 Unknown CBC with Platelets CNE578 Platelet Count 777-3 368 10e3/uL 025 Unknown Vitamin B12 LAB67 Vitamin B12 2132-9 1426 pg/mL 02/19 025 Unknown Glucose [id number] GLUCOSE (RICKI) 2345-7 83 mg/dL 01/31 12/03 025 Unknown Urine Culture 74303 URINE CULTURE 56656-9 SEE RESU LTS BELOW 025 Unknown UA with Microscopic 18225 COLOR Yellow 025 Unknown UA with Microscopic 87080 Appearance Clear 025 Unknown UA with Microscopic 41036 GLUCOSE, URINE Negative mg/dL 025 Unknown UA with Microscopic 98961 BILIRUBIN, URINE Negative 025 Unknown UA with Microscopic 57169 Ketones Urine Negative mg/dL 025 Unknown UA with Microscopic 12821 Specific [place] Urine 1.017 025 Unknown UA with Microscopic 03155 BLOOD, URINE Negative 025 Unknown UA with Microscopic 60588 pH Urine 7.5 025 Unknown UA with Microscopic 38336 Protein urine Negative mg/dL 025 Unknown UA with Microscopic 10070 UROBILINOGEN IRIS Normal mg/dL 025 Unknown UA with Microscopic 80264 Nitrites Negative 025 Unknown UA with Microscopic 66672 LEUK ESTERASE Small 025 Unknown UA with Microscopic 82752 Mucus Urine Present /LPF 025 Unknown UA with Microscopic 93142 RBC Urine 1 /HPF 025 Unknown UA with Microscopic 98069 SQUAMOUS EPITHELIAL 1 /HPF 025 Unknown UA with Microscopic 30169 WBC Urine 69322-2 2 /HPF 025 Unknown Basic Metabolic Panel No Glucose QHHC0169 Sodium 2951-2 140 mmol/L 025 Unknown Basic Metabolic Panel No Glucose [id number] POTASSIUM (RICKI) 2823-3 4.5 mmol/L 025 Unknown Basic Metabolic Panel No Glucose [id number] CHLORIDE (RICKI) 104 mmol/L 025 Unknown Basic Metabolic Panel No Glucose [id number] CO2 (RICKI) 25 mmol/L 025 Unknown Basic Metabolic Panel No Glucose [id number] ANION GAP (RICKI) 11 mmol/L 025 Unknown Basic Metabolic Panel No Glucose [id number] UREA NITROGEN (RICKI) 27.4 mg/dL 025 Unknown Basic Metabolic Panel No Glucose QBMQ9246 Creatinine 2160-0 0.60 mg/dL 025 Unknown Basic Metabolic Panel No Glucose TLOR8693 GFR, ESTIMATE 34854-7 88 mL/min/1.73 m2 025 Unknown Basic Metabolic Panel No Glucose [id number] Calcium 34162-3 9.2 mg/dL 025 Unknown Glucose [id number] GLUCOSE (RICKI) 2345-7 74 mg/dL 12/03 04/02 025 Unknown SLUMS SLUMS 89525-6 24 025 Unknown PHQ9 PHQ9 38088-5 025 Unknown Procedures Procedure Codes Date SYST BP LT 130 MM HG CPT-4: 307404/29/2025 DIAST BP <80 MM HG CPT-4: 30704/29/2025 SYST BP LT 130 MM HG CPT-4: 30703/30/2025 DIAST BP 80-89 MM HG CPT-4: 30703/30/2025 SYST BP >/= 140 MM HG CPT-4: 3077F 03/04/2025 DIAST BP >/= 90 MM HG CPT-4: 3080F 03/04/2025 SYST BP GE 130 - 139MM HG CPT-4: 30752024 DIAST BP <80 MM HG CPT-4: 3078F 02/04/2025 POS CLIN DEPRES SCRN F/U DOC SNOMED CT: 07743522 CPT-4: G8431 02/04/2025 SYST BP LT 130 MM HG CPT-4: 3074F 01/07/2025 DIAST BP <80 MM HG CPT-4: 3078F 01/07/2025 SYST BP >/= 140 MM HG CPT-4: 3077F 12/22/2024 DIAST BP <80 MM HG CPT-4: 30712/22/2024 POS CLIN DEPRES SCRN F/U DOC SNOMED CT: 82750827 CPT-4: G8431 12/22/2024 Vital Signs Date Vital [...] 1: 138/74 Code: 8480-6 BMI: NaN Code: 31336-9 Heart Rate 1: 81 bpm Code: 8867-4 [...] Encounter Performer Location Location Address Codes Date (10038) Home Visit - Est Pt, moderate Diagnosis: Constipation, unspecified constipation type[ICD10: K59.00] Diagnosis: Acute cough[ICD10: R05.1] Diagnosis: Spinal stenosis, lumbar region, without neurogenic claudication[ICD10: M48.061] Diagnosis: Anxiety[ICD10: F41.9] [facility] [place] [address] CPT-4: 29054 04/29/2025 ([id number]) Home Visit - Est Pt, moderate Diagnosis: Constipation, unspecified constipation type[SNOMED: 47922351] Diagnosis: Loose stools[ICD10: R19.5] Diagnosis: Parkinson's disease, unspecified whether dyskinesia present, unspecified whether manifestations fluctuate[ICD10: G20.A1] Diagnosis: Acute cough[SNOMED: 060239354897445555] [facility] [address] [place] [address] CPT-4: 09140 03/30/2025 ([id number]) Home Visit - Est Pt, moderate Diagnosis: Loose stools[SNOMED: 922943047] Diagnosis: Altered mental status, unspecified altered mental status type[ICD10: R41.82] Diagnosis: Parkinson's disease, unspecified whether dyskinesia present, unspecified whether manifestations fluctuate[ICD10: G20.A1] Diagnosis: MCI (mild cognitive impairment)[ICD10: G31.84] Diagnosis: Bilateral irreducible inguinal hernias[SNOMED: 249691482] [facility] [address] [place] [address] CPT-4: 20539 03/04/2025 ([id number]) Medicare Annual Wellness Visit- Subsequent Diagnosis: Adult general medical examination[SNOMED: 460680430] Diagnosis: Advance care planning[SNOMED: 521453443] Diagnosis: Frailty[SNOMED: 844373602] Diagnosis: Allergic rhinitis due to other allergen[ICD10: J30.89] Diagnosis: Essential (primary) hypertension[ICD10: I10] Diagnosis: Essential tremor[ICD10: G25.0] Diagnosis: Female stress incontinence[ICD10: N39.3] Diagnosis: MCI (mild cognitive impairment)[ICD10: G31.84] Diagnosis: Parkinson's disease, unspecified whether dyskinesia present, unspecified whether manifestations fluctuate[ICD10: G20.A1] Diagnosis: Primary osteoarthritis, right shoulder[ICD10: M19.011] Diagnosis: Spinal stenosis, lumbar region, without neurogenic claudication[ICD10: M48.061] Diagnosis: Anxiety[ICD10: F41.9] Judith Tolbert [facility] [address] [place] [address] CPT-4: G0439 02/04/2025 ([id number]) Home or Residence Visit Est Pt - Moderate Level, 40 mins Diagnosis: Essential (primary) hypertension[ICD10: I10] Diagnosis: Spinal stenosis, lumbar region, without neurogenic claudication[ICD10: M48.061] Diagnosis: Parkinson's disease, unspecified whether dyskinesia present, unspecified whether manifestations fluctuate[ICD10: G20.A1] Judith Tolbert [facility] [address] [place] [address] CPT-4: 61534 01/07/2025 ([id number]) Home or Residence Visit 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 - High Level, 75 mins Diagnosis: Parkinson's disease, unspecified whether dyskinesia present, unspecified whether manifestations fluctuate[SNOMED: 73658937] Diagnosis: Essential tremor[SNOMED: 161733190] Diagnosis: Allergic rhinitis due to other allergen[SNOMED: 10261262] Diagnosis: Essential (primary) hypertension[SNOMED: 02553087] Diagnosis: Primary osteoarthritis, right shoulder[SNOMED: 296269199688740] Diagnosis: Female stress incontinence[SNOMED: 92667897] Diagnosis: MCI (mild cognitive impairment)[SNOMED: 554290733] Diagnosis: Spinal stenosis, lumbar region, without neurogenic claudication[SNOMED: 19105305] Diagnosis: History of ductal carcinoma in situ of breast[SNOMED: 78313373363638] Diagnosis: ACP (advance care planning)[SNOMED: 021224439] Diagnosis: Anxiety[SNOMED: 83496445] Judith Tolbert [facility] [address] [place] [phone] CPT-4: 34730 12/22/2024 Plan of Care Planned Activity Notes Codes Status Date Appointment: Ann Tolbert WPtel: [address] [place], [place] [phone] F/U 04/29/2025 Patient Education: Patient Medication Summary Completed 04/29/2025 Patient Education: Influenza Complet ed 04/29/2025 Appointment: Ann Tolbert WPtel: [phone] [place] F/U 03/30/2025 Patient Education: Patient Medication Summary Completed 03/30/2025 Patient Education: Influenza Complet ed 03/30/2025 Appointment: Ann Tolbert WPtel: [phone] [place] F/U 03/04/2025 Patient Education: Patient Medication Summary Completed 03/04/2025 Patient Education: Influenza Complet ed 03/04/2025 Patient Education: Patient Medication Summary Completed 02/18/2025 Care Plan: Comprehensive Metabolic Panel Pending 02/18/2025 Appointment: Ann Tolbert WPtel: [phone] AWV 02/04/2025 Patient Education: Patient Medication Summary Completed 02/04/2025 Patient Education: Influenza Complet ed 02/04/2025 Patient Education: Addiction and Substance Abuse Completed 02/04/2025 Patient Education: Exercise and Fitness Completed 02/04/2025 Patient Education: Fall Prevention C ompleted 02/04/2025 Appointment: Ann Tolbert WPtel: [phone] F/U 01/07/2025 Patient Education: Patient Medication Summary Completed 01/07/2025 Patient Education: Influenza Complet ed 01/07/2025 Appointment: Ann Tolbert WPtel: [phone] 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 12/22/2024 Patient Education: Patient Medication Summary Completed 12/22/2024 Patient Education: Influenza Complet ed 12/22/2024 Care Plan: Basic Metabolic Panel [place] 12/22/2024 Instructions Comment Date Alysa resides at [facility]. Previously lived in [facility] in [place], [place]. from first , second of 30 [...] group. We did discuss ACP therapy through [facility] which she is somewhat interested in. [...] GI specialist last year according to her [id number]). Recommended docusate sodium prn or every other day for constipation. Family will obtain this OTC for patient. Parkinson's disease, unspecified whether dyskinesia present, unspecified whether manifestations fluctuate Unfortunately had another fall shortly after the last [place] visit. She fell out of a chair [...] including bending over in the hallways to draft roller picker trays for other people. Advised patient [...] present, unspecified whether manifestations fluctuate Follows with [place] [place] [facility] Q6M, next f/u is next week according to family. Uses walker as gait aid. Has not fallen in months according to patient. Takes 3 Sinemet QID and she feels when the medication wears off. Anxiety Feels her anxiety is generally well controlled on current medication. She hasn't had much of an appetite since she moved to [place].. 12/22/2024
== END 2025-05-13 10:31 | disposition home or self-care (01) ==
PROVIDERS: Emergency Provider Family Medicine
DX: R53.1 Weakness (principal)
CPT/HCPCS: 36415; 71046; 80053; 81001; 83605; 83880; 84484; 85025; 85651; 86140; 87086; 87631; 93005; 94761; 99284

== ENCOUNTER 2025-09-01 10:50 | Outpatient (CLI) | payer MEDICARE, SELFPAY | END 2025-09-01 10:51 | disposition home or self-care (01) | LOC: INJ CL 10:51 | PROVIDERS: Visit Provider Nurse Anesthetist, Certified Registered | DX: M12.812 Other specific arthropathies, not elsewhere classified, left shoulder (principal); M25.512 Pain in left shoulder | CPT/HCPCS: 64417; 64418; 64450; 77002; Q9966 ==

== ENCOUNTER 2025-10-13 08:56 | Outpatient (CLI) | payer MEDICARE, SELFPAY | END 2025-10-13 08:57 | disposition home or self-care (01) | LOC: INJ CL 08:57 | PROVIDERS: Visit Provider Nurse Anesthetist, Certified Registered | DX: R29.898 Other symptoms and signs involving the musculoskeletal system (principal); M19.012 Primary osteoarthritis, left shoulder; M25.512 Pain in left shoulder; Z96.612 Presence of left artificial shoulder joint | CPT/HCPCS: 64640; 77002; J0665; J0702; J1885 ==